=== PATIENT | female | born 1940 | race Caucasian/White ===

== ENCOUNTER → 2017-06-26 | Outpatient (CLI) | payer OTHER ==
[~2017-06-26] MED LIST: AMAR1TAB; AMOX/K; DIOV320T; GLUC1000; LEVE1INJ5; LISI40TAB; PRAV10TA2; ZETI10TA
== END ==
LOC: M LRY 09:48
PROVIDERS: ATTEND Physician Assistant Medical
DX: E11.9 Type 2 diabetes mellitus without complications (principal); E78.2 Mixed hyperlipidemia

== ENCOUNTER 2017-07-23 10:38 | Emergency (ER) | payer OTHER ==
[~2017-07-23] VITALS: Ht 157.5 cm; Wt 91.4 kg
[~2017-07-23 10:38] MED LIST changes: -AMOX/K; -LEVE1INJ5; -LISI40TAB
[2017-07-23] MEDS ORDERED: AMOX/K (10:47)
[2017-07-23] MEDS ORDERED: LISI40TAB (10:47)
[2017-07-23] MEDS ORDERED: LEVE1INJ5 (10:47)
--- NOTE | 2017-07-23 12:18 | REP ---
Chest two views HISTORY: Cough Comparison: 06/14/2011 A diffuse increase in interstitial markings is present in the lungs consistent with chronic interstitial change. Linear density is present in the right lower lobe consistent with scar. The cardiac silhouette is enlarged. The pulmonary vasculature is normal in appearance. The bony structure is intact. The patient is status post sternotomy. IMPRESSION: 1. Chronic interstitial change. 2. Right lower lobe scar. 3. Cardiomegaly. Signed by Robbie Fontaine MD 07/23/2017 12:09 P
--- NOTE | 2017-07-23 12:30 | REP ---
RIGHT RIBS, THREE VIEWS: HISTORY: Pain. A minimal increase in interstitial markings is present in the lungs consistent with chronic interstitial change. The cardiac silhouette is enlarged. The bony structure is intact. IMPRESSION: 1. Chronic interstitial change. 2. Cardiomegaly. Signed by Robbie Fontaine MD 07/23/2017 12:37 P
[2017-07-23 12:55] VITALS: BP 125/56
== END 2017-07-23 13:01 | disposition home or self-care (01) ==
LOC: M ED 10:38
DX: S29.011A Strain of muscle and tendon of front wall of thorax, initial encounter (principal); W50.0XXA Accidental hit or strike by another person, initial encounter; Y92.012 Bathroom of single-family (private) house as the place of occurrence of the external cause; Y93.F9 Activity, other caregiving; Y99.8 Other external cause status; E11.9 Type 2 diabetes mellitus without complications; I10 Essential (primary) hypertension; Z79.899 Other long term (current) drug therapy; Z79.4 Long term (current) use of insulin; Z88.2 Allergy status to sulfonamides; Z88.5 Allergy status to narcotic agent; Z91.040 Latex allergy status; Z87.891 Personal history of nicotine dependence

== ENCOUNTER → 2018-01-22 | Outpatient (CLI) | payer OTHER ==
[2018-01-22 11:27] LABS: BASO # 0.1 10^3/uL (0.0-0.2); BASO % 0.6 % (0.0-1.0); EOS # 0.3 10^3/uL (0.0-0.50); EOS % 3.7 % (0.0-3.0); HEMATOCRIT 40.8 % (36.0-47.0); HEMOGLOBIN 13.1 g/dl (12.0-16.0); IMMATURE GRANULOCYTE % 0.4 % (0-3.0); LYMPH # 1.3 10^3/uL (1.5-4.5); LYMPH % 15.5 % (24.0-44.0); MEAN CORPUSCULAR HGB CONC 32.1 g/dl (32.0-36.5); MEAN CORPUSCULAR VOLUME 102.8 fl (80.0-96.0); MONO # 0.6 10^3/uL (0.0-0.8); MONO % 6.9 % (0.0-5.0); NEUTROPHILS # 6.1 10^3/uL (1.8-7.7); NEUTROPHILS % 72.9 % (36.0-66.0); PLATELET COUNT, AUTOMATED 253 10^3/uL (150-450); RED BLOOD COUNT 3.97 10^6/uL (4.00-5.40); RED CELL DISTRIBUTION WIDTH 13.1 % (11.5-14.5); WHITE BLOOD COUNT 8.3 10^3/uL (4.0-10.0)
[2018-01-22 11:47] LABS: ESTIMATED AVERAGE GLUCOSE 163 MG/DL (60-110); HEMOGLOBIN A1c 7.3 %
[2018-01-22 12:31] LABS: ALBUMIN 3.8 GM/DL (3.2-5.2); ALBUMIN/GLOBULIN RATIO 1.09 (1.00-1.93); ALKALINE PHOSPHATASE 72 U/L (45-117); ALT/SGPT 22 U/L (12-78); ANION GAP 8 MEQ/L (8-16); AST/SGOT 19 U/L (7-37); BILIRUBIN,TOTAL 0.5 MG/DL (0.2-1.0); BLOOD UREA NITROGEN 25 MG/DL (7-18); CALCIUM LEVEL 9.3 MG/DL (8.8-10.2); CARBON DIOXIDE LEVEL 26 MEQ/L (21-32); CHLORIDE LEVEL 110 MEQ/L (98-107); CHOLESTEROL LEVEL 135 MG/DL (<200); CHOLESTEROL RISK RATIO 3.068 (<5); CREATININE FOR GFR 1.04 MG/DL (0.55-1.30); GLOMERULAR FILTRATION RATE 54.8 (>39); GLUCOSE, FASTING 90 MG/DL (70-100); HDL CHOLESTEROL 44 MG/DL (>40); NON-HDL-C 91 MG/DL; SODIUM LEVEL 144 MEQ/L (136-145); TOTAL PROTEIN 7.3 GM/DL (6.4-8.2); TRIGLYCERIDES LEVEL 150 MG/DL (<150)
== END ==
LOC: M LRY 09:35
DX: R53.83 Other fatigue (principal); E78.2 Mixed hyperlipidemia; I10 Essential (primary) hypertension; E11.9 Type 2 diabetes mellitus without complications
CPT/HCPCS: 84443

== ENCOUNTER 2018-07-24 07:20 | Emergency (ER) | payer OTHER ==
[2018-07-24] MEDS: NORCO, ANEXSIA 5/325MG TABLET (HYDROcodone/ACETAMINOPHEN) PO (09:42)
== END 2018-07-24 11:53 | disposition home or self-care (01) ==
LOC: M ED 07:20
DX: M70.62 Trochanteric bursitis, left hip (principal); E66.01 Morbid (severe) obesity due to excess calories; Z68.35 Body mass index [BMI] 35.0-35.9, adult; I10 Essential (primary) hypertension; M54.31 Sciatica, right side; Z88.5 Allergy status to narcotic agent; Z88.2 Allergy status to sulfonamides; Z91.040 Latex allergy status; Z79.899 Other long term (current) drug therapy; Z79.84 Long term (current) use of oral hypoglycemic drugs; Z79.4 Long term (current) use of insulin; Z79.82 Long term (current) use of aspirin
CPT/HCPCS: 73502

== ENCOUNTER → 2018-09-09 | Outpatient (CLI) | payer OTHER | LOC: M WHC 13:01 | DX: M51.36 Other intervertebral disc degeneration, lumbar region (principal); Z78.0 Asymptomatic menopausal state | CPT/HCPCS: 77080 ==

== ENCOUNTER → 2018-09-24 | Outpatient (CLI) | payer OTHER ==
[2018-09-24 13:22] LABS: BASO # 0.1 10^3/uL (0.0-0.2); EOS # 0.4 10^3/uL (0.0-0.50); EOS % 6.4 % (0.0-3.0); HEMATOCRIT 38.1 % (36.0-47.0); HEMOGLOBIN 12.2 g/dl (12.0-15.5); IMMATURE GRANULOCYTE % 0.4 % (0-3.0); LYMPH # 1.3 10^3/uL (1.5-4.5); LYMPH % 18.4 % (24.0-44.0); MEAN CORPUSCULAR HEMOGLOBIN 32.6 pg (27.0-33.0); MEAN CORPUSCULAR VOLUME 101.9 fl (80.0-96.0); MONO # 0.6 10^3/uL (0.0-0.8); MONO % 9.1 % (0.0-5.0); NEUTROPHILS # 4.5 10^3/uL (1.8-7.7); NEUTROPHILS % 64.7 % (36.0-66.0); PLATELET COUNT, AUTOMATED 254 10^3/uL (150-450); RED BLOOD COUNT 3.74 10^6/uL (4.00-5.40); RED CELL DISTRIBUTION WIDTH 14.2 % (11.5-14.5); WHITE BLOOD COUNT 6.9 10^3/uL (4.0-10.0)
[2018-09-24 13:49] LABS: ESTIMATED AVERAGE GLUCOSE 174 MG/DL (60-110); HEMOGLOBIN A1c 7.7 %
[2018-09-24 13:52] LABS: ALBUMIN 3.7 GM/DL (3.2-5.2); ALBUMIN/GLOBULIN RATIO 1.16 (1.00-1.93); ALKALINE PHOSPHATASE 107 U/L (45-117); ALT/SGPT 22 U/L (12-78); ANION GAP 7 MEQ/L (8-16); AST/SGOT 22 U/L (7-37); BILIRUBIN,TOTAL 0.4 MG/DL (0.2-1.0); BLOOD UREA NITROGEN 23 MG/DL (7-18); CALCIUM LEVEL 9.2 MG/DL (8.8-10.2); CARBON DIOXIDE LEVEL 28 MEQ/L (21-32); CHLORIDE LEVEL 107 MEQ/L (98-107); CHOLESTEROL LEVEL 155 MG/DL (<200); CHOLESTEROL RISK RATIO 3.444 (<5); CREATININE FOR GFR 1.01 MG/DL (0.55-1.30); GLOMERULAR FILTRATION RATE 56.7 (>39); GLUCOSE, FASTING 99 MG/DL (70-100); HDL CHOLESTEROL 45 MG/DL (>40); LDL CHOLESTEROL 79 MG/DL (<100); NON-HDL-C 110 MG/DL; SODIUM LEVEL 142 MEQ/L (136-145); TOTAL PROTEIN 6.9 GM/DL (6.4-8.2); TRIGLYCERIDES LEVEL 155 MG/DL (<150)
== END ==
LOC: M LRY 10:50
DX: Z51.81 Encounter for therapeutic drug level monitoring (principal); Z79.899 Other long term (current) drug therapy; E11.9 Type 2 diabetes mellitus without complications; E78.5 Hyperlipidemia, unspecified; G89.4 Chronic pain syndrome
CPT/HCPCS: 84443

== ENCOUNTER → 2018-11-25 | Outpatient (CLI) | payer MEDICARE ==
[~2018-11-25] MED LIST changes: +AMOX/K; +BAYE325T12 PO; +LEVE1INJ5; +LISI40TA; +NORCOTAB PO; +ROLLMIS2 XX
[2018-11-25 13:03] LABS: CREATININE FOR GFR 1.12 MG/DL (0.55-1.30); GLOMERULAR FILTRATION RATE 50.2 (>39)
[2018-11-25 13:07] LABS: INR 0.92; PROTHROMBIN TIME 12.5 SECONDS (12.1-14.4)
[2018-11-25 13:09] LABS: PARTIAL THROMBOPLASTIN TIME 29.2 SECONDS (25.4-37.6)
== END ==
LOC: M LRY 09:21
PROVIDERS: ATTEND Orthopaedic Surgery
DX: Z01.812 Encounter for preprocedural laboratory examination (principal); Z79.01 Long term (current) use of anticoagulants

== ENCOUNTER → 2018-12-03 | Outpatient (CLI) | payer MEDICARE ==
[~2018-12-03] MED LIST changes: +ACETAMINOPHEN 325 MG TAB As Ordered ONE; +ISOVUE-300 61% 50ML VIAL (Q9967) As Ordered ONE; +ISOVUE-M 300 61% 15ML VIAL (Q9967) As Ordered ONE; +LIDOCAINE 1% MDV 20ML VIAL As Ordered ONE
--- NOTE | 2018-12-03 09:41 | REP ---
CT LUMBAR SPINE WITHOUT CONTRAST: HISTORY: Degenerative disc disease. There is no disc bulge or herniation at the L1-2 level. The L1 nerves exit the neural foramina without compression. A diffuse disc bulge is present at the L2-3 level. There is minimal compression of the thecal sac. The L2 nerves exit the neural foramina without compression. A diffuse disc bulge is present at the L3-4 level. There is hypertrophy of the ligamenta flava and posterior articulating facets. These findings produce mild central canal stenosis. The L3 nerves exit the neural foramina without compression. A diffuse disc bulge is present at the L4-5 level. There is hypertrophy of the ligamenta flava and posterior articulating facets. There are 3 mm of grade 1 spondylolisthesis of L4 on 5. These findings produce severe central canal stenosis. There is compression of the L4 nerves in the neural foramina. A diffuse disc bulge is present at the L5-S1 level. There is minimal compression of the thecal sac. There is hypertrophy of the posterior articulating facets. The L5 nerves exit the neural foramina without compression. The L2-3 and L4-5 intervertebral discs are decreased in height consistent with disc degeneration. The vertebral bodies are normal in height. A stimulator is present in the left S3 neural foramen. IMPRESSION: 1. Diffuse disc bulges at the L2-3 and L5-S1 levels with minimal thecal sac compression. 2. Mild central canal stenosis at the L3-4 level secondary to disc bulge, ligamentous and facet hypertrophy. 3. Severe central canal stenosis at the L4-5 level secondary to disc bulge, ligamentous and facet hypertrophy, and grade 1 spondylolisthesis. There is compression of the L4 nerves in the neural foramina. Electronically Signed by Robbie Fontaine MD 12/03/2018 09:47 A
--- NOTE | 2018-12-03 20:39 | REP ---
LUMBAR MYELOGRAM The procedure was performed under the personal supervision of Dr. Gasca. The images were reviewed with Dr. Gasca. The risks and benefits of the procedure were explained to the patient and informed consent was obtained. The L3-4 interspace was localized using fluoroscopic guidance. The skin was prepped and draped in a sterile fashion. 1% lidocaine was used as a local anesthetic. Using fluoroscopic guidance a 822-gauge spinal needle was inserted and advanced into the thecal sac. 10 ml of Isovue M - 300 was injected. The needle was then removed. Images obtained after injection demonstrate moderate central canal stenosis at L4-5 with mild compression and widening of the fifth lumbar roots in the thecal sac at this level on AP imaging. There is mild central canal stenosis at L3-4 as well. There is evidence of a fairly large disc protrusion along the ventral margin of the thecal sac at T11-12. The patient tolerated the procedure well and there were no immediate complications. After the appropriate amount of monitored convalescence the patient was discharged from the department. 0.5 minutes of fluoroscopy time was utilized for this procedure. Reviewed by DANIEL Martinez 12/03/2018 04:18 P Electronically Signed by Branden Gasca MD 12/03/2018 08:29 P
== END ==
LOC: M RADPRO 07:33
PROVIDERS: ATTEND Physician Assistant
DX: M48.061 Spinal stenosis, lumbar region without neurogenic claudication (principal); M51.27 Other intervertebral disc displacement, lumbosacral region; Z88.5 Allergy status to narcotic agent; Z88.2 Allergy status to sulfonamides; Z91.040 Latex allergy status
CPT/HCPCS: 62284; 72131; Q9967

== ENCOUNTER → 2018-12-09 | Outpatient (CLI) | payer MEDICARE ==
[~2018-12-09] MED LIST changes: -ACETAMINOPHEN 325 MG TAB As Ordered ONE; -ISOVUE-300 61% 50ML VIAL (Q9967) As Ordered ONE; -ISOVUE-M 300 61% 15ML VIAL (Q9967) As Ordered ONE; -LIDOCAINE 1% MDV 20ML VIAL As Ordered ONE
[2018-12-09 11:45] LABS: BASO # 0.1 10^3/uL (0.0-0.2); BASO % 0.8 % (0.0-1.0); EOS # 0.3 10^3/uL (0.0-0.50); EOS % 4.5 % (0.0-3.0); HEMOGLOBIN 12.5 g/dl (12.0-15.5); LYMPH # 1.1 10^3/uL (1.5-4.5); MEAN CORPUSCULAR HEMOGLOBIN 32.1 pg (27.0-33.0); MEAN CORPUSCULAR HGB CONC 31.3 g/dl (32.0-36.5); MEAN CORPUSCULAR VOLUME 102.6 fl (80.0-96.0); MONO # 0.6 10^3/uL (0.0-0.8); MONO % 10.2 % (0.0-5.0); NEUTROPHILS # 4.1 10^3/uL (1.8-7.7); PLATELET COUNT, AUTOMATED 231 10^3/uL (150-450); WHITE BLOOD COUNT 6.2 10^3/uL (4.0-10.0)
[2018-12-09 11:52] LABS: ALBUMIN 3.5 GM/DL (3.2-5.2); BILIRUBIN,TOTAL 0.4 MG/DL (0.2-1.0); CALCIUM LEVEL 9.1 MG/DL (8.8-10.2); CHOLESTEROL RISK RATIO 3.666 (<5); CREATININE FOR GFR 1.1 MG/DL (0.55-1.30); GLOMERULAR FILTRATION RATE 51.3 (>39); POTASSIUM SERUM 4.9 MEQ/L (3.5-5.1); THYROID STIMULATING HORMONE 2.02 uIU/ML (0.358-3.740); TOTAL PROTEIN 6.8 GM/DL (6.4-8.2)
[2018-12-09 12:01] LABS: HEMOGLOBIN A1c 7.7 %
== END ==
LOC: M LRY 09:06
PROVIDERS: ATTEND Nurse Practitioner Adult Health
DX: Z51.81 Encounter for therapeutic drug level monitoring (principal); Z79.899 Other long term (current) drug therapy; F33.1 Major depressive disorder, recurrent, moderate

== ENCOUNTER → 2019-01-30 | Outpatient (REF) | payer MEDICARE ==
[~2019-01-30] MED LIST changes: +HYDR-3715 PO; -NORCOTAB PO
[2019-01-30 12:55] LABS: INR 1.07
[2019-01-30 12:56] LABS: PARTIAL THROMBOPLASTIN TIME 26.8 SECONDS (25.4-37.6)
== END ==
LOC: M LAB REF 12:18
PROVIDERS: ATTEND Physical Medicine & Rehabilitation
DX: Z79.01 Long term (current) use of anticoagulants (principal); D69.1 Qualitative platelet defects

== ENCOUNTER → 2019-03-04 | Outpatient (CLI) | payer MEDICARE ==
[2019-03-04 11:28] LABS: BASO # 0.1 10^3/uL (0.0-0.2); BASO % 0.9 % (0.0-1.0); EOS # 0.4 10^3/uL (0.0-0.50); EOS % 5.8 % (0.0-3.0); HEMATOCRIT 40.4 % (36.0-47.0); HEMOGLOBIN 12.7 g/dl (12.0-15.5); LYMPH # 1.2 10^3/uL (1.5-4.5); LYMPH % 18.8 % (24.0-44.0); MEAN CORPUSCULAR HEMOGLOBIN 32.1 pg (27.0-33.0); MEAN CORPUSCULAR HGB CONC 31.4 g/dl (32.0-36.5); MONO # 0.6 10^3/uL (0.0-0.8); MONO % 9.2 % (0.0-5.0); NEUTROPHILS # 4.2 10^3/uL (1.8-7.7); NEUTROPHILS % 64.8 % (36.0-66.0); PLATELET COUNT, AUTOMATED 219 10^3/uL (150-450); RED BLOOD COUNT 3.96 10^6/uL (4.00-5.40); WHITE BLOOD COUNT 6.5 10^3/uL (4.0-10.0)
[2019-03-04 12:00] LABS: HEMOGLOBIN A1c 7.5 %
[2019-03-04 12:08] LABS: ALBUMIN 3.5 GM/DL (3.2-5.2); BILIRUBIN,TOTAL 0.4 MG/DL (0.2-1.0); CALCIUM LEVEL 8.7 MG/DL (8.8-10.2); CHOLESTEROL RISK RATIO 3.227 (<5); CREATININE FOR GFR 1.15 MG/DL (0.55-1.30); GLOMERULAR FILTRATION RATE 48.7 (>39); POTASSIUM SERUM 5.4 MEQ/L (3.5-5.1); THYROID STIMULATING HORMONE 1.86 uIU/ML (0.358-3.740)
== END ==
LOC: M LRY 09:18
PROVIDERS: ATTEND Nurse Practitioner Adult Health
DX: Z79.899 Other long term (current) drug therapy (principal); E11.9 Type 2 diabetes mellitus without complications; E78.5 Hyperlipidemia, unspecified

== ENCOUNTER 2019-05-06 09:00 | Inpatient (IN) | payer MEDICARE ==
[~2019-05-06] VITALS: Ht 157.5 cm; Wt 90.9 kg
[2019-05-06 09:40] LABS: HEMATOCRIT 46.1 % (36.0-47.0); HEMOGLOBIN 14.8 g/dl (12.0-15.5); MEAN CORPUSCULAR HEMOGLOBIN 33.3 pg (27.0-33.0); MEAN CORPUSCULAR HGB CONC 32.1 g/dl (32.0-36.5); MEAN CORPUSCULAR VOLUME 103.8 fl (80.0-96.0); PLATELET COUNT, AUTOMATED 193 10^3/uL (150-450); RED BLOOD COUNT 4.44 10^6/uL (4.00-5.40); WHITE BLOOD COUNT 3.3 10^3/uL (4.0-10.0)
[2019-05-06] MEDS ORDERED: ONDANSETRON 4MG/2ML VIAL (J2405) IV ONE (09:45)
[2019-05-06 10:00] LABS: ATYPICAL LYMPH 2 % (0-5); BASOPHILS 1 % (0-4); LYMPHOCYTES 15 % (16-52); MONOCYTES 4 % (0-8); NEUTROPHILS 74 % (35-75)
[2019-05-06 10:01] LABS: POIKILOCYTOSIS 1+
[2019-05-06 10:09] LABS: ALBUMIN 4.1 GM/DL (3.2-5.2); BILIRUBIN,DIRECT 0.2 MG/DL (0.0-0.2); BILIRUBIN,TOTAL 0.7 MG/DL (0.2-1.0); CREATININE FOR GFR 1.78 MG/DL (0.55-1.30); GLOMERULAR FILTRATION RATE 29.4 (>39); POTASSIUM SERUM 4.2 MEQ/L (3.5-5.1); TOTAL PROTEIN 8.1 GM/DL (6.4-8.2)
[2019-05-06] MEDS ORDERED: NS 1,000 ML IV SCH (10:31)
[2019-05-06] MEDS ORDERED: MORPHINE 4 MG/ML 1ML VIAL/SYRINGE (J2270) IV ONE (10:45)
--- NOTE | 2019-05-06 11:54 | REP ---
CT ABDOMEN AND PELVIS WITHOUT CONTRAST: CT abdomen and pelvis performed without oral or IV contrast. Sagittal and coronal reconstruction images are performed. Visualized lung bases demonstrate fibrotic changes. There is a small hiatal hernia. The liver is grossly unremarkable. Small gallstones are seen in the gallbladder without definite gallbladder wall edema. The spleen, adrenals and pancreas are grossly unremarkable. There are renal vascular calcifications bilaterally. There is no right hydronephrosis. There is mild left hydronephrosis caused by a 3 mm stone in the proximal left ureter. There is moderate atherosclerotic calcification of the abdominal aorta without aneurysm. There is no adenopathy. There is no free air or free fluid. No bowel wall thickening is seen. I see no pelvic mass. Course calcifications are seen in both small ovaries. Urinary bladder is very mildly distended and grossly unremarkable. IMPRESSION: There is a 3 mm calculus in the proximal left ureter causing mild left hydronephrosis. No right hydronephrosis. No other acute abnormalities. Electronically Signed by Philippe Alvarado MD 05/07/2019 10:51 A
[2019-05-06] MEDS ORDERED: PIPERACILLIN/TAZOBACTAM SOD 2.25 GM in D5W MINI-BAG PLUS 50 ML IV ONE (14:00)
[2019-05-06] MEDS ORDERED: TRAZ-189 PO (14:09)
[2019-05-06] MEDS ORDERED: LEVE1INJ5 SC (14:09)
[2019-05-06] MEDS ORDERED: PRAV40TA2 PO (14:09)
[2019-05-06] MEDS ORDERED: TRAV04OPD OU (14:09)
[2019-05-06] MEDS ORDERED: METF-877 PO (14:09)
[2019-05-06] MEDS ORDERED: ASPI-262 PO (14:09)
[2019-05-06] MEDS ORDERED: LISI40TA PO (14:09)
[2019-05-06] MEDS ORDERED: CONRAY-60 60% 50ML VIAL (Q9961) As Ordered ONE (14:38)
[2019-05-06] MEDS ORDERED: GLUCOSE 4 GM CHEW TABLET PO PRN ×2 (14:45→22:30)
[2019-05-06] MEDS ORDERED: DEXTROSE 50% 50 ML SYRINGE IV PRN ×2 (14:45→22:30)
[2019-05-06] MEDS ORDERED: GLUCAGON FOR INJ 1 MG VIAL (J1610) SC PRN ×2 (14:45→22:30)
[2019-05-06] MEDS ORDERED: PROPOFOL 200 MG/20 ML VIAL As Ordered ONE (14:46)
[2019-05-06] MEDS ORDERED: LIDOCAINE 2% INJ 100 MG/5 ML SDV (FOR ANES.) As Ordered ONE (14:46)
[2019-05-06] MEDS ORDERED: MIDAZOLAM INJ 2 MG/2 ML VIAL (J2250) As Ordered ONE (14:46)
[2019-05-06] MEDS ORDERED: fentaNYL 100 MCG/2 ML INJECTION (J3010) As Ordered ONE (14:46)
--- NOTE | 2019-05-06 15:34 | SMCUROLCON ---
Urology Consultation General Date of Consultation 05/06/19 Reason For Consultation This patient is seen for Left Ureteral Stone. History of Present Illness This is a 78 y/o F w/ a PMH significant for CAD, HTN, DM2, HL, and recurrent UTIs, presenting to the ER w/ a severe left flank pain that started last night. She notes that the pain has increased since yesterday. She also notes nausea and vomiting as well as chills. A CT A/P done in the ER was notable for a 3mm proximal left ureteral stone w/ mild hydronephrosis and perinephric stranding. Her UA was notable for 136 WBC/hpf, positive nitrites, and 3+ bacteria. Her WBC was 3.3. Per ER report she was also hypotensive in the ER w/ a SBP in the 90s. The patient notes her pain is a little better now as she was given morphine in the ER. She denies dysuria. She notes that prior to now she had not had a UTI in over a year. She has no prior history of kidney stones. Past Medical History Medical History see [facility] Surgical Hstory open heart surgery in 2008, hysterectomy, rotator cuff repair in 2005 Medications Current Medications Current Medications Acetaminophen (Tylenol Tab) 650 mg Q4H PRN PO PAIN OR FEVER; Start 05/06/19 at 1 4:45 Dextrose (Dextrose 50%) 25 ml ASDIRECTED PRN IV SEE LABEL COMMENTS; Start 05/06/19 at 14:45 Glucagon (Glucagon) 1 mg ASDIRECTED PRN SC SEE LABEL COMMENTS; Start 05/06/19 at 14:45 Glucose (Glucose) 16 GM ASDIRECTED PRN PO SEE LABEL COMMENTS; Start 05/06/19 at 14:45 Heparin Sodium (Porcine) (Heparin) 5,000 units Q12H SC ; Start 05/06/19 at 21:00 Home Med (Med Rec Complete!) ASDIRECTED XX ; Start 05/06/19 at 14:15; Stop 05/06/19 at 14:15; Status DC Insulin Human Lispro (HumaLOG INSULIN) See Protocol Table AC SC ; Start 05/06/19 at 17:30 Latanoprost (Xalatan 0.005% Op Soln) 1 drop QHS OU ; Start 05/06/19 at 21:00 Meropenem 1 gm/IV Miscellaneous Supplies 50 ml @ 100 mls/hr DAILY IV ; Start 05/07/19 at 09:00; Status UNV Sodium Chloride 1,000 ml @ 100 mls/hr Q10H IV ; Start 05/06/19 at 15:00 Sodium Chloride 1,000 ml @ 150 mls/hr Q6H40M IV Last administered on 05/06/19at 10:40; Start 05/06/19 at 10:31; Stop 05/06/19 at 15:06; Status DC Trazodone HCl (Desyrel) 100 mg QHS PO ; Start 05/07/19 at 21:00 Allergies Allergies: Coded Allergies: Sulfa (Sulfonamide Antibiotics) (Verified Allergy, Intermediate, HIVES, 05/06/19) Hives latex (Verified Allergy, Unknown, 05/06/19) codeine (Verified Adverse Reaction, Mild, GI UPSET, 05/06/19) GI Upset Review of Systems Constitutional: Reports: Chills Pulmonary: Denies: Dyspnea, Cough Cardiovascular: Denies Chest Pain, Denies Palpitations Gastrointestinal: Reports: Nausea, Vomiting Genitourinary: Denies: Dysuria, Hematuria Musculoskeletal: Reports: Back Pain (severe left flank pain) Neurological: Denies: Weakness, Numbness, Incoordination, Change in Speech Psych: Reports: Mood Normal Physical Examination General Exam: Alert, Cooperative Chest Exam: Clear to auscultation Heart Exam: Rate Normal, Regular Rhythm Abdomen Exam: Soft; No: Tenderness Skin Exam: Nl turgor and temperature Neuro Exam: Normal Speech Psych Exam: Mental status NL, Mood NL Vital Signs/I&O Vital Signs Date Time Temp Pulse Resp B/P (MAP) Pulse Ox O2 Delivery O2 Flow Rate FiO2 05/06/19 14:55 133/73 (93) 05/06/19 14:50 99 18 96 Nasal Cannula 3.0 05/06/19 14:40 98.1 Laboratory Data 24H Labs Laboratory Tests 2 05/06/19 09:27: Nucleated Red Blood Cells % (auto) 0.0, Neutrophils 74, Band Neutrophils 4, Lymphocytes (Manual) 15L, Monocytes (Manual) 4, Basophils (Manual) 1, Atypical Lymphocytes 2, Platelet Estimate , Poikilocytosis 1+, Anion Gap -6L, Glomerular Filtration Rate 29.4L, Calcium Level 10.0, Aspartate Amino Transf (AST/SGOT) 25, Alanine Aminotransferase (ALT/SGPT) 19, Alkaline Phosphatase 73, Total Bilirubin 0.7, Direct Bilirubin 0.2, Total Protein 8.1, Albumin 4.1, Albumin/Globulin Ratio 1.03, Lipase 120 05/06/19 11:39: Urine Color YELLOW, Urine Appearance CLOUDYH, Urine pH 6.0, Urine Specific [place] 1.009, Urine Protein 2+H, Urine Glucose (UA) NEGATIVE, Urine Ketones NEGATIVE, Urine Blood 3+H, Urine Nitrite POSITIVEH, Urine Bilirubin NEGATIVE, Urine Urobilinogen 0.2, Urine Leukocyte Esterase 3+H, Urine WBC (Auto) 136H, Urine RBC (Auto) TNTCH, Urine Hyaline Casts (Auto) 0, Urine Bacteria (Auto) 3+H, Urine Squamous Epithelial Cells 10, Urine Renal Epithelial Cells 3, Urine Mucus (Auto) SMALL, Urine Sperm (Auto) CBC/BMP Laboratory Tests 05/06/19 09:27 Red Blood Count 4.44, Mean Corpuscular Volume 103.8 H, Mean Corpuscular Hemoglobin 33.3 H, Mean Corpuscular Hemoglobin Concent 32.1, Red Cell Distribution Width 13.2 Microbiology Microbiology 05/06/19 Blood Culture, Received Pending 05/06/19 Blood Culture, Received Pending 05/06/19 Urine Culture, Received Pending Assessment This is a 78 y/o F admitted w/ concern for sepsis due a UTI and an obstructing proximal left ureteral stone. I recommended that we take her to the OR now for cystoscopy and a left ureteral stent placement. After a discussion of the risks and benefits of surgery, informed consent was signed. Plan - informed consent signed for cystoscopy and left ureteral stent placement - blood and urine cultures obtained - zosyn given in the ED - NPO - plan for surgery now BRIDGETTE DASH MD May 06, 2019 15:34
[2019-05-06] MEDS ORDERED: MEROPENEM INJ 1 GM in APPROPRIATE DILUENT 1 EA IV ONE (15:45)
[2019-05-06] MEDS ORDERED: LIDOCAINE 2% 5ML JELLY UROJET As Ordered ONE (16:34)
[2019-05-06] MEDS ORDERED: LR 1,000 ML IV SCH ×2 (17:15→17:30)
[2019-05-06] MEDS ORDERED: ONDANSETRON 4MG/2ML VIAL (J2405) IV PRN ×2 (17:15→17:30)
[2019-05-06] MEDS ORDERED: HYDROMORPHONE HCL 0.5 MG/ 0.5 ML SYRINGE (J1170 PER 1) IV PRN ×2 (17:15→17:30)
[2019-05-06] MEDS ORDERED: fentaNYL 100 MCG/2 ML INJECTION (J3010) IV PRN ×2 (17:15→17:30)
[2019-05-06] MEDS ORDERED: PERCOCET 5MG/325MG TAB PO PRN ×3 (17:15→17:30)
[2019-05-06] MEDS ORDERED: HumaLOG INSULIN (NovoLOG) PER UNIT As Ordered ONE (17:23)
[2019-05-06] MEDS ORDERED: HumaLOG INSULIN (NovoLOG) PER UNIT SC SCH (17:30)
[2019-05-06] MEDS ORDERED: HumaLOG INSULIN (NovoLOG) PER UNIT SC ONE (17:30)
--- NOTE | 2019-05-06 17:42 | REP ---
C-ARM VIEWS DURING LEFT URETERAL STENT PLACEMENT: Four C-Arm views performed. Left ureteral stent is placed. Left pelvicaliceal system is partially opacified with contrast. Proximal end of the ureteral stent is seen in the renal pelvis and the distal end is seen in the urinary bladder. 16 seconds fluoroscopy time utilized. Electronically Signed by Philippe Alvarado MD 05/09/2019 10:04 A
[2019-05-06 18:00] VITALS: BP 120/58
[2019-05-06] MEDS: NS 1,000 ML IV SCH (18:00)
[2019-05-06 18:30] VITALS: BP 124/58
[2019-05-06 19:00] VITALS: BP 122/56
--- NOTE | 2019-05-06 19:08 | RO ---
DATE OF PROCEDURE: 05/06/2019 PREPROCEDURE DIAGNOSIS: Left ureteral stone. POSTPROCEDURE DIAGNOSIS: Left ureteral stone. PROCEDURE: Cystoscopy, left ureteral stent placement. SURGEON: Dr. Robb Rosas SOAP WORKER: None. ANESTHESIA: Monitored anesthesia care (MAC). OPERATIVE INDICATIONS: This 78-year-old female presented to the emergency room with chills and severe left flank pain. She was found to have an obstructing proximal 3 mm left ureteral stone as well as urinalysis concerning for urinary tract infection. She also, while in the emergency room, became hypotensive, raising a concern for sepsis. She was brought to the operating room today for left ureteral stent placement. DESCRIPTION OF PROCEDURE: The patient was brought to the operating room and MAC anesthesia was administered. Broad-spectrum antibiotics were already infused. She was then placed in the dorsal lithotomy position and prepped and draped in the usual sterile fashion. A rigid cystoscope was then inserted into the urethral meatus and advanced to the bladder. Once inside the bladder, a guidewire was advanced up the left collecting system. I then advanced an open-ended ureteral catheter over the wire into the left collecting system and then removed the wire. I then aspirated urine from the left kidney to be sent for culture. A retrograde pyelogram was then performed. It was notable for mild left hydronephrosis, no extravasation. I then advanced the wire back up the left collecting system and then removed the ureteral catheter. I utilized the wire to advance a 6-Nigerien x 22-32 cm JJ ureteral stent up into the left collecting system. The wire was removed, and there were adequate curls of the stent in the left renal pelvis and in the bladder. I then advanced the 16-Nigerien Pham catheter into the bladder, and the balloon was filled with 10 mL of sterile water. The catheter was connected to gravity drainage, and this marked the conclusion of the procedure. The patient was then awakened from anesthesia and transported to the recovery room in stable condition. Estimated blood loss: Minimal. Complications: None. Specimens: Urine from left kidney for culture. PLAN: The patient will be watched in the hospital on the hospitalist service and kept on broad-spectrum antibiotics until the cultures return. We will discuss any future treatment of her stone after ensuring her infection has been resolved. YAMILET
--- NOTE | 2019-05-06 19:44 | HPE ---
DATE OF ADMISSION: 05/06/2019 PRIMARY CARE PROVIDER: Dr. Kc UROLOGIST: Dr. Robb Rosas ATTENDING PHYSICIAN: Dr. Jenifer Pederson CHIEF COMPLAINT: Acute onset left flank pain. HISTORY OF PRESENT ILLNESS: The patient is a 78-year-old white female with several chronic medical conditions listed below, came to the hospital for evaluation of left flank pain. History if provided by herself. She states she does not have history of kidney stone in the past and she was doing fine until last night and suddenly she said she developed severe pain located in her left flank, radiation down. The worst pain is about 8 out of 10 in severity and she denies fever, chills and she has frequent urination which she states is chronic. Due to severe pain, she came to the hospital for full evaluation. In the ER, she underwent abdominal CT scan which demonstrated she has left ureteral stone with hydronephrosis and antibiotic, Zosyn started in the ER and urologist was called for the consult. Meanwhile medicine service was called for admission. REVIEW OF SYSTEMS: Denies fever, no chills. No headache, blurry vision, no shortness of breath, no chest pain. Positive nausea, positive vomiting. Positive dysuria, but no diarrhea. Positive left flank pain. No tingling, numbness, weakness in the arms, lower extremities. All other systems reviewed, but negative. PAST MEDICAL HISTORY: 1. Type 2 diabetes. 2. Coronary artery disease, status post coronary artery bypass graft (CABG). 3. Hypertension. 4. Dyslipidemia. PAST SURGICAL HISTORY: Status post CABG 11 years ago and hysterectomy. ALLERGIES: SULFA, CODEINE and LATEX. SOCIAL HISTORY: Remote tobacco use, but quit many, many years. No alcohol abuse. No history of drug abuse. She is FULL CODE. FAMILY HISTORY: No family history of coronary disease or kidney problems. MEDICATIONS: Reviewed. PHYSICAL EXAMINATION: VITALS: Temperature 97.8, heart rate 111, respiratory rate 18, blood pressure 98.52 and 02 saturation is 96% on 3 liters oxygen. GENERAL: She is awake, alert, oriented times three. She is in much acute distress. She is obese. HEENT: Atraumatic. Pupils equal, round and reactive to light. No jaundice. Extraocular muscles intact. Ears, nose, throat: Normal. Mouth: Mucous a little bit dry. NECK: No jugular venous distention (JVD). No bruits. LUNGS: Clear. No wheezing, no crackles. HEART: S1, S2, regular. Mild tachycardia and no murmur. ABDOMEN: Soft, bowel sounds positive. Nontender. LOWER EXTREMITIES: No edema in bilateral lower extremities. SKIN: No rash. NEUROLOGICAL: Nonfocal. PSYCHOLOGICAL: No acute psychosis. DIAGNOSTICS AND LAB STUDIES: Include the following: CBC and differential: WBC 3.3, hemoglobin and hematocrit 14.8/46, platelets 193. Sodium 131, potassium 4.2, chloride 116, bicarbonate 21, BUN 28, creatinine 1.78 and her baseline is 1.5. CT abdomen and pelvis demonstrated left ureteral stone with hydronephrosis. IMPRESSION: 1. Left ureteral stone with hydronephrosis. 2. Recurrent urinary tract infection. 3. History of type 2 diabetes. 4. History of carotid disease. 5. Hyponatremia which is mild. 6. Acute onset chronic kidney disease (CKD), stage III. PLAN: Patient will be admitted to the med-surg floor. Will treat her with IV gentle hydration and I will treat her with meropenem for urinary tract infection since she has history of ESBL, E. coli and Klebsiella. Will keep her nothing by mouth (npo). Urology was consulted and plan to take to the OR for ureteral stent placement. She is medically stable. She is medically cleared for cystoscopy and left ureteral stenting.
[2019-05-06 20:00] VITALS: BP 118/59
[2019-05-06 21:00] VITALS: BP 120/57
[2019-05-06 22:00] VITALS: BP 123/55
[2019-05-06] MEDS: MEROPENEM INJ 1 GM in APPROPRIATE DILUENT 1 EA IV SCH (22:05)
[2019-05-06] MEDS: HEPARIN SOD (PORCINE) 5000 UNITS/ML VIAL SC SCH (22:13)
[2019-05-06] MEDS: HumaLOG INSULIN (NovoLOG) PER UNIT SC SCH (23:28)
[2019-05-06] MEDS: LATANOPROST 0.005% OPHTH SOLN 2.5 ML OU SCH (23:29)
[2019-05-07] VITALS: BP_SYST 111
[2019-05-07] MEDS: NS 1,000 ML IV SCH ×3 (02:30→20:45)
[2019-05-07 04:00] VITALS: BP 130/61
[2019-05-07] MEDS: ACETAMINOPHEN TAB 650MG DOSE (2X325MG) PO PRN ×2 (04:47→17:23)
[2019-05-07 06:54] LABS: HEMOGLOBIN 12.4 g/dl (12.0-15.5); MEAN CORPUSCULAR HEMOGLOBIN 34.1 pg (27.0-33.0); MEAN CORPUSCULAR HGB CONC 31.8 g/dl (32.0-36.5); MEAN CORPUSCULAR VOLUME 107.1 fl (80.0-96.0); PLATELET COUNT, AUTOMATED 135 10^3/uL (150-450); RED BLOOD COUNT 3.64 10^6/uL (4.00-5.40); WHITE BLOOD COUNT 21.9 10^3/uL (4.0-10.0)
[2019-05-07 07:21] LABS: CALCIUM LEVEL 8.4 MG/DL (8.8-10.2); CREATININE FOR GFR 1.73 MG/DL (0.55-1.30); GLOMERULAR FILTRATION RATE 30.4 (>39); POTASSIUM SERUM 5.1 MEQ/L (3.5-5.1)
[2019-05-07 08:00] VITALS: BP 122/59
[2019-05-07] MEDS: HEPARIN SOD (PORCINE) 5000 UNITS/ML VIAL SC SCH ×2 (08:51→20:44)
[2019-05-07] MEDS: HumaLOG INSULIN (NovoLOG) PER UNIT SC SCH ×4 (08:53→21:00)
[2019-05-07] MEDS ORDERED: IBUPROFEN 800 MG TAB PO ONE (09:00)
--- NOTE | 2019-05-07 10:55 | IPNPDOC ---
Date Seen The patient was seen on 05/07/19. Progress Note SUBJECTIVE: 78 Y female, with history of DMT2, HTN, CAD, recurrent UTI presents with left flank pain found to have left ureter stone underwent left ureter stent by Urologist c/w headache this AM left flank pain resolved Review of systems +KIRKPATRICK no fever no chills no chest pain no abdominal pain no diarrhea OBJECTIVE PHYSICAL EXAMINATION: VITAL SIGNS: Please see below. GENERAL: AA Ox3, lying in the bed, no acute distress, obese HEENT: Atraumatic CARDIOVASCULAR: S1 S2 regular, no murmur RESPIRATORY: clear, no wheezing, no rales ABDOMINAL: soft BS positive, non tenderness EXTREMITIES: no edema NEUROLOGICAL: non focal PSYCHOLOGICAL: no psychosis LABORATORY DATA, IMAGING STUDIES, MICROBIOLOGY: Please see below. ASSESSMENT AND PLAN: 1. Left ureteral stone with hydronephrosis s/p ureter stenting Urologist follows 2. Recurrent urinary tract infection she has recurrent UTI with ESBL Klebsiella and E Coli she is afebrile, but has leukocytosis at 21 this AM will continue IV Meropenem and follow cultures 3. Headache, treat symptomatically 4. History of type 2 diabetes, in ISS 5. History of CAD, no chest pain 6. Hyponatremia, resolved 7. Chronic kidney disease (CKD), stage III, will monitor Cr 8. Disposition, may discharge home tomorrow. VS, I&O, 24H, Fishbone Vital Signs/I&O Vital Signs Date Time Temp Pulse Resp B/P (MAP) Pulse Ox O2 Delivery O2 Flow Rate FiO2 05/07/19 08:00 97.5 85 20 122/59 (80) 92 05/07/19 00:00 1.0 05/06/19 14:50 Nasal Cannula I&O- Last 24 Hours up to 6 AM0 05/07/19 06:00 Intake Total 660 ml Output Total 425 ml Balance 235 ml Laboratory Data 24H LABS Laboratory Tests 2 05/06/19 11:39: Urine Color YELLOW, Urine Appearance CLOUDYH, Urine pH 6.0, Urine Specific [place] 1.009, Urine Protein 2+H, Urine Glucose (UA) NEGATIVE, Urine Ketones NEGATIVE, Urine Blood 3+H, Urine Nitrite POSITIVEH, Urine Bilirubin NEGATIVE, Urine Urobilinogen 0.2, Urine Leukocyte Esterase 3+H, Urine WBC (Auto) 136H, Urine RBC (Auto) TNTCH, Urine Hyaline Casts (Auto) 0, Urine Bacteria (Auto) 3+H, Urine Squamous Epithelial Cells 10, Urine Renal Epithelial Cells 3, Urine Mucus (Auto) SMALL, Urine Sperm (Auto) 05/06/19 17:15: Bedside Glucose (Misc Panel) 232H 05/06/19 23:26: Bedside Glucose (Misc Panel) 195H 05/07/19 06:32: Nucleated Red Blood Cells % (auto) 0.0, Anion Gap 6L, Glomerular Filtration Rate 30.4L, Blood Urea Nitrogen 35H, Creatinine 1.73H, Sodium Level 143#, Potassium Level 5.1#, Chloride Level 109H, Carbon Dioxide Level 28, Calcium Level 8.4#L CBC/BMP Laboratory Tests 05/07/19 06:32 Red Blood Count 3.64 L, Mean Corpuscular Volume 107.1 H, Mean Corpuscular Hemoglobin 34.1 H, Mean Corpuscular Hemoglobin Concent 31.8 L, Red Cell Distribution Width 13.9, Calcium Level 8.4 #L Microbiology Microbiology 05/06/19 Blood Culture, Received Pending 05/06/19 Blood Culture, Received Pending 05/06/19 Urine Culture, Received Pending 05/06/19 Urine Culture, Received Pending COREY WEN MD May 07, 2019 10:55
[2019-05-07 12:00] VITALS: BP 111/55
--- NOTE | 2019-05-07 13:47 | IPNPDOC ---
Subjective Review oF Systems Chief Complaint The patient is a 78-year-old female admitted with a reason for visit of Left Ureteral Stone. Events since Last Encounter No acute events o/n. Patient notes that she feels much better today. Her pain has improved significantly. Denies fevers or chills. Objective Physical Examination General Exam: Alert, Cooperative, No Acute Distress ABDOMEN EXAM: Soft Skin Exam: Nl turgor and temperature Neuro Exam: Normal Speech Psych Exam: Mental status NL, Mood NL Other physical findings catheter in place, draining clear urine Vital Signs/I&O Vital Signs Date Time Temp Pulse Resp B/P (MAP) Pulse Ox O2 Delivery O2 Flow Rate FiO2 05/07/19 12:00 98.3 87 20 111/55 (73) 95 1.0 05/06/19 14:50 Nasal Cannula I&O- Last 24 Hours up to 6 AM 05/07/19 06:00 Intake Total 660 ml Output Total 425 ml Balance 235 ml Laboratory Data Labs 24H Laboratory Tests 2 05/06/19 17:15: Bedside Glucose (Misc Panel) 232H 05/06/19 23:26: Bedside Glucose (Misc Panel) 195H 05/07/19 06:32: Nucleated Red Blood Cells % (auto) 0.0, Anion Gap 6L, Glomerular Filtration Rate 30.4L, Blood Urea Nitrogen 35H, Creatinine 1.73H, Sodium Level 143#, Potassium Level 5.1#, Chloride Level 109H, Carbon Dioxide Level 28, Calcium Level 8.4#L 05/07/19 11:42: Bedside Glucose (Misc Panel) 135H CBC/BMP Laboratory Tests 05/07/19 06:32 Red Blood Count 3.64 L, Mean Corpuscular Volume 107.1 H, Mean Corpuscular Hemoglobin 34.1 H, Mean Corpuscular Hemoglobin Concent 31.8 L, Red Cell Distribution Width 13.9, Calcium Level 8.4 #L FSBS Laboratory Tests Test 05/06/19 17:15 05/06/19 23:26 05/07/19 11:42 Range/Units Bedside Glucose (Misc Panel) 232 195 135 83-110 MG/DL Microbiology Microbiology 05/06/19 Blood Culture, Received Pending 05/06/19 Blood Culture, Received Pending 05/06/19 Urine Culture, Received Pending 05/06/19 Urine Culture, Received Pending Assessment/Plan Date Seen The patient was seen on 05/07/19. Patient Summary This is a 78 y/o F admitted w/ concern for sepsis due a UTI and an obstructing proximal left ureteral stone, now POD1 s/p cysto and left ureteral stent pl acement. Her WBC went up to 21.9 this morning, likely due to the surgery. Clinically she looks much better. Vitals are stable. Her cultures are still pending. Plan/VTE VTE Prophylaxis Ordered?: Yes VTE Exclusion Mechanical Proph: N/A:VTE Prophy Ordered Plan/Urinary Catheter Urinary Catheter: D/C Pham Plan - d/c catheter - antibiotic regimen per primary team - start flomax to help w/ stone passage (ordered) - my office will arrange f/u for her to be seen in a few weeks w/ a CT prior to assess for stone passage - if CT demonstrates that the stone is still present at that point, we will set her up for a left ureteroscopy w/ laser lithotripsy BRIDGETTE DASH MD May 07, 2019 13:47
[2019-05-07] MEDS: TAMSULOSIN 0.4 MG CAP PO SCH (15:37)
[2019-05-07 16:00] VITALS: BP 117/58
[2019-05-07 19:48] VITALS: BP 118/58
[2019-05-07] MEDS: MEROPENEM INJ 1 GM in APPROPRIATE DILUENT 1 EA IV SCH (20:43)
[2019-05-07] MEDS: LATANOPROST 0.005% OPHTH SOLN 2.5 ML OU SCH (20:44)
[2019-05-07] MEDS ORDERED: traZODone 100 MG TAB PO SCH (21:00)
[2019-05-08 04:00] VITALS: BP 140/63
[2019-05-08 08:00] VITALS: BP 156/66
[2019-05-08 08:01] LABS: HEMATOCRIT 37.6 % (36.0-47.0); HEMOGLOBIN 12.1 g/dl (12.0-15.5); MEAN CORPUSCULAR HEMOGLOBIN 34.3 pg (27.0-33.0); MEAN CORPUSCULAR HGB CONC 32.2 g/dl (32.0-36.5); MEAN CORPUSCULAR VOLUME 106.5 fl (80.0-96.0); PLATELET COUNT, AUTOMATED 119 10^3/uL (150-450); RED BLOOD COUNT 3.53 10^6/uL (4.00-5.40); WHITE BLOOD COUNT 13.8 10^3/uL (4.0-10.0)
[2019-05-08] MEDS: NS 1,000 ML IV SCH (08:03)
[2019-05-08 08:23] LABS: BASOPHILS 1 % (0-4)
[2019-05-08 08:25] LABS: ANISOCYTOSIS 1+; EOSINOPHILS 2 % (0-5); LYMPHOCYTES 6 % (16-52); MONOCYTES 5 % (0-8); NEUTROPHILS 78 % (35-75)
[2019-05-08 08:29] LABS: CALCIUM LEVEL 7.6 MG/DL (8.8-10.2); CREATININE FOR GFR 1.3 MG/DL (0.55-1.30); GLOMERULAR FILTRATION RATE 42.3 (>39); POTASSIUM SERUM 4.4 MEQ/L (3.5-5.1)
[2019-05-08] MEDS: HEPARIN SOD (PORCINE) 5000 UNITS/ML VIAL SC SCH (09:00)
[2019-05-08] MEDS: TAMSULOSIN 0.4 MG CAP PO SCH (09:14)
[2019-05-08] MEDS: HumaLOG INSULIN (NovoLOG) PER UNIT SC SCH ×2 (09:15→12:00)
[2019-05-08] MEDS ORDERED: CIPR-250 PO (11:49)
[2019-05-08] MEDS ORDERED: OXYC1TAB PO (12:02)
[2019-05-08] MEDS ORDERED: OXYC1TAB23 PO (12:41)
--- NOTE | 2019-05-09 18:37 | DS.PDOC ---
Discharge Summary General Date of Admission May 06, 2019 at 14:31 Date of Discharge 05/08/19 Primary Care Physician: A Attending Physician: COREY WEN MD Specialist/Consultants Involve: BRIDGETTE DASH MD Discharge Summary PROCEDURES PERFORMED DURING STAY: cystocope and ureter stenting. ADMITTING DIAGNOSES: 1. left ureter stone with hydronephrosis DISCHARGE DIAGNOSES: 1. left ureter stone with hydronephrosis 2. UTI, Ux +Enterobacter 3. Type 2 diabetes. 4. Coronary artery disease, status post coronary artery bypass graft (CABG). 5. Hypertension. 6. Dyslipidemia COMPLICATIONS/CHIEF COMPLAINT: Left Ureteral Stone. HISTORY OF PRESENT ILLNESS: . The patient is a 78-year-old white female with several chronic medical conditions listed below, came to the hospital for evaluation of left flank pain. History if provided by herself. She states she does not have history of kidney stone in the past and she was doing fine until last night and suddenly she said she developed severe pain located in her left flank, radiation down. The worst pain is about 8 out of 10 in severity and she denies fever, chills and she has frequent urination which she states is chronic. Due to severe pain, she came to the hospital for full evaluation. In the ER, she underwent abdominal CT scan which demonstrated she has left ureteral stone with hydronephrosis and antibiotic, Zosyn started in the ER and urologist was called for the consult. Meanwhile medicine service was called for admission. HOSPITAL COURSE: After admission, she was treated with IVF and IV abx; she was consulted with Urologist; she underwent cystoscope and ureter stenting on 05/07; her urine culture came back with Enterobacter; now she is medically stable and will go home with oral Cipro. DISCHARGE MEDICATIONS: Please see below. ALLERGIES: Please see below. PHYSICAL EXAMINATION ON DISCHARGE: VITAL SIGNS: Please see below. GENERAL: AA ox3, no distress HEENT: atraumatic NECK: no JVD CARDIOVASCULAR EXAMINATION: S1 S2 regular RESPIRATORY EXAMINATION: clear ABDOMINAL EXAMINATION: soft BS + non tender EXTREMITIES: no edema SKIN: no rash NEUROLOGICAL EXAMINATION: non focal PSYCHIATRIC EXAMINATION: no psychosis LABORATORY DATA: Please see below. IMAGING: abdominal CT PROGNOSIS: fair ACTIVITY: [As tolerated]. DIET: diabetic diet DISPOSITION: Home, Self-Care. ITEMS TO FOLLOWUP ON ON OUTPATIENT: Urologist in 1 week DISCHARGE CONDITION: [Stable]. TIME SPENT ON DISCHARGE: Greater than 35 minutes. Vital Signs/I&Os Vital Signs Date Time Temp Pulse Resp B/P (MAP) Pulse Ox O2 Delivery O2 Flow Rate FiO2 05/08/19 08:00 97.5 86 18 156/66 (96) 94 05/07/19 12:00 1.0 05/06/19 14:50 Nasal Cannula I&O- Last 24 Hours up to 6 AM 05/09/19 05:59 Intake Total 740 ml Output Total 270 ml Balance 470 ml Microbiology Microbiology 05/06/19 Blood Culture - Preliminary, Resulted 05/06/19 Blood Culture - Preliminary, Resulted No Growth after 72 hours. All specime... 05/06/19 Urine Culture - Final, Complete Enterobacter Aerogenes 05/06/19 Urine Culture - Final, Complete Enterobacter Aerogenes Discharge Medications Scheduled Aspirin (Aspirin) 325 Mg Tablet, 325 MG PO DAILY, (Reported) Ciprofloxacin HCl (Cipro) 250 Mg Tablet, 250 MG PO BID Insulin Detemir (Levemir Flextouch) 100 Unit/1 Ml Insuln.pen, 24 UNIT SC QHS, (Reported) Lisinopril (Lisinopril) 40 Mg Tablet, 40 MG PO QHS, (Reported) Metformin HCl (Metformin HCl) 1,000 Mg Tablet, 1,000 MG PO BID, (Reported) Pravastatin Sodium (Pravastatin Sodium) 40 Mg Tablet, 40 MG PO QHS, (Reported) Travoprost (Travatan Z) 0.004% 2.5ML Drops, 1 DROP OU QHS, (Reported) Trazodone HCl (Trazodone HCl) 100 Mg Tablet, 100 MG PO QHS, (Reported) Scheduled PRN Oxycodone HCl/Acetaminophen (Oxycodone-Acetaminophen 5-325) 1 Each Tablet, 1 TAB PO QIDP PRN for pain Allergies Coded Allergies: Sulfa (Sulfonamide Antibiotics) (Verified Allergy, Intermediate, HIVES, 05/06/19) Hives latex (Verified Allergy, Unknown, 05/06/19) codeine (Verified Adverse Reaction, Mild, GI UPSET, 05/06/19) GI Upset COREY WEN MD May 09, 2019 18:37
== END 2019-05-08 13:20 | disposition home or self-care (01) | DRG 854 ==
LOC: M ED 09:00 → M ED INP 14:31 → M PED 18:00
PROVIDERS: ADMIT Hospitalist; ATTEND Hospitalist
PROC: 0T778DZ Dilation of Left Ureter with Intraluminal Device, Via Natural or Artificial Opening Endoscopic (ICD-10-PCS; principal; 2019-05-06 14:30)
DX: A41.9 Sepsis, unspecified organism (principal); N13.6 Pyonephrosis; E87.1 Hypo-osmolality and hyponatremia; N17.9 Acute kidney failure, unspecified; N18.3 Chronic kidney disease, stage 3 (moderate); I12.9 Hypertensive chronic kidney disease with stage 1 through stage 4 chronic kidney disease, or unspecified chronic kidney disease; E78.5 Hyperlipidemia, unspecified; I25.10 Atherosclerotic heart disease of native coronary artery without angina pectoris; Z95.1 Presence of aortocoronary bypass graft; E11.9 Type 2 diabetes mellitus without complications; Z79.82 Long term (current) use of aspirin; Z79.899 Other long term (current) drug therapy; Z88.2 Allergy status to sulfonamides; Z91.040 Latex allergy status; Z88.5 Allergy status to narcotic agent

== ENCOUNTER 2019-05-10 09:57 | Emergency (ER) | payer MEDICARE ==
[~2019-05-10] VITALS: Ht 152.4 cm; Wt 90.9 kg
[~2019-05-10 09:57] MED LIST changes: +ASPI-262 PO; +CIPR-250 PO; +LEVE1INJ5 SC; +LISI40TA PO; +METF-877 PO; +OXYC1TAB PO; +OXYC1TAB23 PO; +PRAV40TA2 PO; +TRAV04OPD OU; +TRAZ-189 PO
[2019-05-10] MEDS ORDERED: cefTRIAXone SOD 1 GM in D5W MINI-BAG PLUS 50 ML IV ONE (10:45)
[2019-05-10 10:52] LABS: BASO # 0.1 10^3/uL (0.0-0.2); BASO % 0.7 % (0.0-1.0); EOS # 0.3 10^3/uL (0.0-0.50); EOS % 4.5 % (0.0-3.0); HEMOGLOBIN 12.6 g/dl (12.0-15.5); LYMPH # 1.1 10^3/uL (1.5-4.5); LYMPH % 14.7 % (24.0-44.0); MEAN CORPUSCULAR HEMOGLOBIN 32.4 pg (27.0-33.0); MEAN CORPUSCULAR HGB CONC 32.3 g/dl (32.0-36.5); MEAN CORPUSCULAR VOLUME 100.3 fl (80.0-96.0); MONO # 0.5 10^3/uL (0.0-0.8); MONO % 7.3 % (0.0-5.0); NEUTROPHILS # 5.2 10^3/uL (1.8-7.7); NEUTROPHILS % 71.3 % (36.0-66.0); PLATELET COUNT, AUTOMATED 166 10^3/uL (150-450); RED BLOOD COUNT 3.89 10^6/uL (4.00-5.40); WHITE BLOOD COUNT 7.4 10^3/uL (4.0-10.0)
[2019-05-10 11:11] LABS: CALCIUM LEVEL 8.4 MG/DL (8.8-10.2); CREATININE FOR GFR 1.16 MG/DL (0.55-1.30); GLOMERULAR FILTRATION RATE 48.2 (>39); POTASSIUM SERUM 4.1 MEQ/L (3.5-5.1)
[2019-05-10 11:15] LABS: ALT/SGPT 15 U/L (12-78); BILIRUBIN,DIRECT < 0.1 MG/DL (0.0-0.2); BILIRUBIN,TOTAL 0.3 MG/DL (0.2-1.0); TOTAL PROTEIN 7.1 GM/DL (6.4-8.2)
[2019-05-10] MEDS ORDERED: CIPR-249 PO (12:50)
[2019-05-10 13:01] VITALS: BP 161/75
--- NOTE | 2019-05-10 13:12 | CR.PDOC ---
General Date of Consultation: May 10, 2019 Referring Provider: RAQUEL CHASE Attending Physician: COREY WEN MD Consultation REASON FOR CONSULTATION/CHIEF COMPLAINT: bacteremia in ER HISTORY OF PRESENT ILLNESS: 78-year-old white female with several chronic medical conditions listed below, came to the hospital for evaluation of bacteremia. she was here from 05/06 to 05/08 due to left ureter stone and UTI; she was consulted with urologist and ureter stenting was done on 05/07; she was also found to have UTI and treated with initially Zosyn/Meropenem and the then Cipro; her urine culture was positive for enterobacter and she was discharged on oral Cipro; however one of her 2 blood c ultures came back positive for enterobacter so she was called back to ER today for further evaluation. she states she is doing well with fever or chills after discharge. today in ER, her CBC and BMP is WNL without any leukocytosis; Medicine called for further recommendation. ALLERGIES: see below HOME MEDICATIONS: Please see below. PAST MEDICAL HISTORY: 1. HTN 2. MD T2 3. CAD, s/p CABG 4. left ureter stone, s/p ureter stenting PAST SURGICAL HISTORY: 1. HTN 2. DM T2 3. CAD, s/p CABG 4. Dyslipidemia FAMILY HISTORY: no family member with CAD or DM or kidney stones SOCIAL HISTORY: Tobacco use:none ETOH: none Illicit drug use: none IV drug use:none she is full code REVIEW OF SYSTEMS: CONSTITUTIONAL: no fever no chills HEENT: no headache, no blurred vision CARDIOVASCULAR: no chest pain or palpitation RESPIRATORY: no sob, no cough, no sputum GENITOURINARY: no dysuria or hematuria or abdominal discharge MUSCULOSKELETAL: no general weakness GASTROINTESTINAL: no N/V/D, no abdominal pain SKIN: no rash or itching NEUROLOGICAL: no focal weakness PSYCHIATRIC: no agitation or confusion ENDOCRINE: no dizziness HEMATOLOGIC/LYMPHATIC: no bleeding ALLERGIC/IMMUNOLOGIC: no skin rash PHYSICAL EXAMINATION: VITAL SIGNS: Please see below. GENERAL APPEARANCE: AA Ox3, not in acute distress HEENT: atraumatic, DOMENIC, no jaundice, EOM normal RESPIRATORY: clear, no wheezing, no rales CARDIOVASCULAR: S1 S2 regular no murmur ABDOMEN: soft BS + non tenderness EXTREMITIES: no edema NEUROLOGICAL: no focal deficit PSYCHIATRIC: no acute psychosis LABORATORY DATA: Please see below. ASSESSMENT/PLAN: 1. UTI with enterobacter bacteremia and bacteruria 2. Left ureter stone, s/p stenting 3. DM T2 4. CAD, 5. HTN Recommendation: she was here a few days and had left ureter stent for obstructed ureter stone; her urine culture and 1 out 2 blood culture are positive for enterobacter; she was treated with IV Zosyn/meropenem in the hospital and discharged on oral Cipro; repeated blood cultures x2 are done today in ER; now she is afebrile, no leukocytosis and feeling well. She can be discharged home and continue oral Cipro for totally 10 days; I discussed with patient and her family and they agreed and I also discussed with AYLA Nicole who agreed to discharge patient home from ER. Vital Signs/I&O Vital Signs Date Time Temp Pulse Resp B/P (MAP) Pulse Ox O2 Delivery O2 Flow Rate FiO2 05/10/19 11:52 05/10/19 11:42 66 96 05/10/19 09:57 98.6 14 Room Air Laboratory Data Labs 24H Laboratory Tests 2 05/10/19 10:26: Aspartate Amino Transf (AST/SGOT) 20, Alanine Aminotransferase (ALT/SGPT) 15, Alkaline Phosphatase 87, Total Bilirubin 0.3, Direct Bilirubin < 0.1, Total Protein 7.1, Albumin 3.0L, Albumin/Globulin Ratio 0.73L 05/10/19 10:27: Immature Granulocyte % (Auto) 1.5, White Blood Count 7.4, Red Blood Count 3.89L, Hemoglobin 12.6, Hematocrit 39.0, Mean Corpuscular Volume 100.3H, Mean Corpuscular Hemoglobin 32.4, Mean Corpuscular Hemoglobin Concent 32.3, Red Cell Distribution Width 13.2, Platelet Count 166, Neutrophils (%) (Auto) 71.3H, Lymphocytes (%) (Auto) 14.7L, Monocytes (%) (Auto) 7.3H, Eosinophils (%) (Auto) 4.5H, Basophils (%) (Auto) 0.7, Neutrophils # (Auto) 5.2, Lymphocytes # (Auto) 1.1L, Monocytes # (Auto) 0.5, Eosinophils # (Auto) 0.3, Basophils # (Auto) 0.1, Nucleated Red Blood Cells % (auto) 0.0, Anion Gap 9, Glomerular Filtration Rate 48.2, Lactic Acid Level 1.9, Blood Urea Nitrogen 18, Creatinine 1.16, Sodium Level 145, Potassium Level 4.1, Chloride Level 109H, Carbon Dioxide Level 27, Calcium Level 8.4L CBC/BMP Laboratory Tests 05/10/19 10:27 Red Blood Count 3.89 L, Mean Corpuscular Volume 100.3 H, Mean Corpuscular Hemoglobin 32.4, Mean Corpuscular Hemoglobin Concent 32.3, Red Cell Distribution Width 13.2, Neutrophils (%) (Auto) 71.3 H, Lymphocytes (%) (Auto) 14.7 L, Monocytes (%) (Auto) 7.3 H, Eosinophils (%) (Auto) 4.5 H, Basophils (%) (Auto) 0.7, Neutrophils # (Auto) 5.2, Lymphocytes # (Auto) 1.1 L, Monocytes # (Auto) 0.5, Eosinophils # (Auto) 0.3, Basophils # (Auto) 0.1, Calcium Level 8.4 L Microbiology Microbiology 05/10/19 Blood Culture, Received Pending 05/10/19 Blood Culture, Received Pending Allergies Coded Allergies: Sulfa (Sulfonamide Antibiotics) (Verified Allergy, Intermediate, HIVES, 05/06/19) Hives latex (Verified Allergy, Unknown, 05/06/19) codeine (Verified Adverse Reaction, Mild, GI UPSET, 05/06/19) GI Upset Home Medications Scheduled Aspirin (Aspirin) 325 Mg Tablet, 325 MG PO DAILY, (Reported) Ciprofloxacin HCl (Cipro) 250 Mg Tablet, 250 MG PO BID for 5 Days, #10 Ciprofloxacin HCl (Cipro) 500 Mg Tablet, 500 MG PO BID for 5 Days, #10 Insulin Detemir (Levemir Flextouch) 100 Unit/1 Ml Insuln.pen, 24 UNIT SC QHS, (Reported) Lisinopril (Lisinopril) 40 Mg Tablet, 40 MG PO QHS, (Reported) Metformin HCl (Metformin HCl) 1,000 Mg Tablet, 1,000 MG PO BID, (Reported) Pravastatin Sodium (Pravastatin Sodium) 40 Mg Tablet, 40 MG PO QHS, (Reported) Travoprost (Travatan Z) 0.004% 2.5ML Drops, 1 DROP OU QHS, (Reported) Trazodone HCl (Trazodone HCl) 100 Mg Tablet, 100 MG PO QHS, (Reported) Scheduled PRN Oxycodone HCl/Acetaminophen (Oxycodone-Acetaminophen 5-325) 1 Each Tablet, 1 TAB PO QIDP PRN for pain for 5 Days, #20 COREY WEN MD May 10, 2019 13:12
== END 2019-05-10 13:10 | disposition home or self-care (01) ==
LOC: M ED 09:57
DX: R78.81 Bacteremia (principal); I25.2 Old myocardial infarction; E11.9 Type 2 diabetes mellitus without complications; I10 Essential (primary) hypertension; Z87.442 Personal history of urinary calculi; Z95.1 Presence of aortocoronary bypass graft; Z79.82 Long term (current) use of aspirin; Z79.4 Long term (current) use of insulin; Z79.899 Other long term (current) drug therapy; Z88.2 Allergy status to sulfonamides; Z88.5 Allergy status to narcotic agent; Z91.040 Latex allergy status
CPT/HCPCS: 36415; 80048; 80076; 83605; 85025; 87040; 93041; 96374; 99285; J0696

== ENCOUNTER 2019-05-12 09:52 | Emergency (ER) | payer MEDICARE ==
[~2019-05-12] VITALS: Ht 152.4 cm; Wt 90.9 kg
[~2019-05-12 09:52] MED LIST changes: +CIPR-249 PO
[2019-05-12] MEDS ORDERED: TRAZ-163 (10:03)
[2019-05-12] MEDS ORDERED: METF10004 (10:03)
[2019-05-12] MEDS ORDERED: MORPHINE 4 MG/ML 1ML VIAL/SYRINGE (J2270) IV ONE (12:00)
[2019-05-12] MEDS ORDERED: NS 1,000 ML IV ONE (12:00)
--- NOTE | 2019-05-12 13:15 | REP ---
Renal ultrasound: Comparison is the abdomen and pelvis CT dated 05/06/2019. The right kidney measures 11.2 x 5.2 x 4.2 cm. Left kidney measures 12.3 x 5.3 x 4.8 cm. The kidneys are normal size. Renal cortical echogenicity is normal bilaterally. There is no hydronephrosis on the right on the left. No renal calculi are identified by ultrasound. There are no solid or cystic renal masses. Bladder: The bladder is nondistended and cannot be evaluated. Impression: Negative bilateral renal ultrasound. No renal calculi are identified by ultrasound. There is no hydronephrosis. Electronically Signed by Philippe Thomson MD 05/12/2019 01:07 P
[2019-05-12 13:22] LABS: BASO # 0.1 10^3/uL (0.0-0.2); BASO % 0.9 % (0.0-1.0); EOS # 0.1 10^3/uL (0.0-0.50); EOS % 1.9 % (0.0-3.0); HEMATOCRIT 39.9 % (36.0-47.0); HEMOGLOBIN 13.1 g/dl (12.0-15.5); LYMPH # 0.8 10^3/uL (1.5-4.5); LYMPH % 13.8 % (24.0-44.0); MEAN CORPUSCULAR HEMOGLOBIN 33.4 pg (27.0-33.0); MEAN CORPUSCULAR HGB CONC 32.8 g/dl (32.0-36.5); MEAN CORPUSCULAR VOLUME 101.8 fl (80.0-96.0); MONO # 0.9 10^3/uL (0.0-0.8); MONO % 14.9 % (0.0-5.0); NEUTROPHILS # 3.8 10^3/uL (1.8-7.7); NEUTROPHILS % 64.1 % (36.0-66.0); PLATELET COUNT, AUTOMATED 194 10^3/uL (150-450); RED BLOOD COUNT 3.92 10^6/uL (4.00-5.40); WHITE BLOOD COUNT 5.9 10^3/uL (4.0-10.0)
--- NOTE | 2019-05-12 13:55 | REP ---
KUB: Single view. History: Left flank pain. Left ureteral stent. Comparison KUB study February 26, 2014. Comparison retrograde ureterogram May 06, 2019. CT study from May 06, 2019 showed a left mid ureteral calculus. Findings: Double pigtail left ureteral stent is noted in place. There has occur a linear calcification in the region of the left renal hilus near this date and the proximal pigtail. This may be vascular. No other urinary tract calculus is appreciated. There is a trans sacral nerve stimulator lead. Bowel gas pattern is normal. Impression: Double pigtail left ureteral stent in place. No definite urinary tract calculus visible. Electronically Signed by Branden Gasca MD 05/12/2019 01:47 P
[2019-05-12 14:00] LABS: ALT/SGPT 25 U/L (12-78); BILIRUBIN,DIRECT 0.1 MG/DL (0.0-0.2); BILIRUBIN,TOTAL 0.5 MG/DL (0.2-1.0); BLOOD UREA NITROGEN 17 MG/DL (7-18); CALCIUM LEVEL 9.5 MG/DL (8.8-10.2); CARBON DIOXIDE LEVEL 27 MEQ/L (21-32); CHLORIDE LEVEL 103 MEQ/L (98-107); CREATININE FOR GFR 1.33 MG/DL (0.55-1.30); GLOMERULAR FILTRATION RATE 41.2 (>39); GLUCOSE, FASTING 142 MG/DL (70-100); POTASSIUM SERUM 3.9 MEQ/L (3.5-5.1); SODIUM LEVEL 139 MEQ/L (136-145); TOTAL PROTEIN 6.8 GM/DL (6.4-8.2); TROPONIN I < 0.02 NG/ML (< 0.10)
[2019-05-12 15:05] LABS: APPEARANCE, URINE CLOUDY (CLEAR); BACTERIA, URINE AUTO 1+ (NEGATIVE); BILIRUBIN, URINE AUTO NEGATIVE (NEGATIVE); BLOOD, URINE BLOOD 3+ (NEGATIVE); COLOR, URINE YELLOW (YELLOW); GLUCOSE, URINE (UA) AUTO NEGATIVE (NEGATIVE); KETONE, URINE AUTO NEGATIVE (NEGATIVE); LEUKOCYTE ESTERASE, URINE AUTO 1+ (NEGATIVE); NITRITE, URINE AUTO NEGATIVE (NEGATIVE); PROTEIN, URINE AUTO 1+ mg/dL (NEGATIVE); RBC, URINE AUTO 157 /HPF (0-3); SPECIFIC GRAVITY URINE AUTO 1.011 (1.002-1.035); SQUAMOUS EPITHELIAL CELL UR AU 0 /HPF (0-6); UROBILINOGEN, URINE AUTO 0.2 mg/dL (0.0-2.0); WBC, URINE AUTO 23 /HPF (0-3)
[2019-05-12 18:19] VITALS: BP 173/71
--- NOTE | 2019-05-12 20:51 | ECGEPIP ---
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 Order Number: [id number] Reading MD: Jb Salgado Measurements Intervals [place] Rate: 80 P: 252 PA: 321 QRS: 23 QRSD: 85 T: 128 QT: 377 QTc: 437 Interpretive Statements ELECTRONIC [employer]EM[employer] ST DEVIATION AND MODERATE T-WAVE ABNORMALITY, CONSIDER ANTERIOR ISCHEMIA Comparison tracing not on file Electronically Signed on 05-12-2019 20:51:07 EDT by Jb Salgado
== END 2019-05-12 18:30 | disposition home or self-care (01) ==
LOC: M ED 09:52
DX: E86.0 Dehydration (principal); I10 Essential (primary) hypertension; E11.9 Type 2 diabetes mellitus without complications; E78.00 Pure hypercholesterolemia, unspecified; Z79.899 Other long term (current) drug therapy; Z79.84 Long term (current) use of oral hypoglycemic drugs; Z79.82 Long term (current) use of aspirin; Z88.1 Allergy status to other antibiotic agents; Z88.2 Allergy status to sulfonamides; Z88.5 Allergy status to narcotic agent; Z91.040 Latex allergy status

== ENCOUNTER 2019-05-26 16:41 | Emergency (ER) | payer MEDICARE ==
[~2019-05-26] VITALS: Ht 152.4 cm; Wt 92.7 kg
[~2019-05-26 16:41] MED LIST changes: +METF10004; +TRAZ-163
[2019-05-26 17:29] LABS: BASO # 0.1 10^3/uL (0.0-0.2); BASO % 0.7 % (0.0-1.0); EOS # 0.5 10^3/uL (0.0-0.50); EOS % 4.2 % (0.0-3.0); HEMATOCRIT 40.8 % (36.0-47.0); HEMOGLOBIN 13.4 g/dl (12.0-15.5); LYMPH # 1.4 10^3/uL (1.5-4.5); LYMPH % 12.7 % (24.0-44.0); MEAN CORPUSCULAR HEMOGLOBIN 33.9 pg (27.0-33.0); MEAN CORPUSCULAR HGB CONC 32.8 g/dl (32.0-36.5); MEAN CORPUSCULAR VOLUME 103.3 fl (80.0-96.0); MONO # 1.2 10^3/uL (0.0-0.8); MONO % 10.9 % (0.0-5.0); NEUTROPHILS % 71.1 % (36.0-66.0); PLATELET COUNT, AUTOMATED 438 10^3/uL (150-450); RED BLOOD COUNT 3.95 10^6/uL (4.00-5.40); WHITE BLOOD COUNT 11.2 10^3/uL (4.0-10.0)
[2019-05-26 18:00] LABS: ALBUMIN 3.4 GM/DL (3.2-5.2); BILIRUBIN,DIRECT 0.2 MG/DL (0.0-0.2); BILIRUBIN,TOTAL 0.4 MG/DL (0.2-1.0); TOTAL PROTEIN 7.9 GM/DL (6.4-8.2)
[2019-05-26] MEDS ORDERED: ACET-683 PO (18:18)
[2019-05-26] MEDS ORDERED: MORPHINE 2 MG/ML 1ML SYRINGE (J2270) IV ONE ×2 (18:30→19:30)
[2019-05-26] MEDS ORDERED: ONDANSETRON 4MG/2ML VIAL (J2405) IV ONE (18:30)
[2019-05-26 18:49] LABS: CALCIUM LEVEL 9.6 MG/DL (8.8-10.2); CREATININE FOR GFR 1.79 MG/DL (0.55-1.30); GLOMERULAR FILTRATION RATE 29.2 (>39); POTASSIUM SERUM 4.6 MEQ/L (3.5-5.1)
[2019-05-26] MEDS ORDERED: NS 1,000 ML IV ONE (20:15)
--- NOTE | 2019-05-26 21:16 | REPVR ---
EXAM: CT Abdomen and Pelvis Without Contrast EXAM DATE/TIME: 05/26/2019 6:59 PM CLINICAL HISTORY: 78 years old, female; Abdominal pain; Localized; Left; Additional info: Left flank pain, history of kidney stone, RO obstr TECHNIQUE: Imaging protocol: Axial computed tomography images of the abdomen and pelvis without contrast. Coronal and sagittal reformatted images were created and reviewed. Radiation optimization: All CT scans at this facility use at least one of these dose optimization techniques: automated exposure control; mA and/or kV adjustment per patient size (includes targeted exams where dose is matched to clinical indication); or iterative reconstruction. COMPARISON: CT ABD PELVIS W/O CONTRAST 05/06/2019 10:45 AM FINDINGS: Lungs: There is dependent atelectasis and mild fibrotic changes of the lung bases. Mediastinum: Small hiatal hernia. Liver: Normal. No mass. Gallbladder and bile ducts: Tiny stones layer within the gallbladder. Pancreas: There is atrophy and fatty replacement of the pancreas. Spleen: Normal. No splenomegaly. Adrenals: The adrenal glands are normal. Kidneys and ureters: There has been placement of a left double-J ureteral stent, with persistent mild hydronephrosis. There is a punctate calcification adjacent to the proximal stent, in the region of the previously visualized 3 mm proximal ureteral stone. There is mild left perinephric stranding. No right-sided hydronephrosis. There are bilateral renal vascular calcifications. Stomach and bowel: Normal. No obstruction. No mucosal thickening. Appendix: No evidence of appendicitis. Intraperitoneal space: Normal. No free air. No significant fluid collection. Vasculature: There are coronary artery atherosclerotic calcifications. There is atherosclerosis of the aorta and branches. Lymph nodes: Normal. No enlarged lymph nodes. Bladder: Unremarkable as visualized. Reproductive: There are coarse calcifications in both ovaries. The uterus is surgically absent. Bones/joints: The bones are osteopenic. There are degenerative changes of the lumbar spine. There is no acute fracture. Soft tissues: Unremarkable. IMPRESSION: 1. Placement of left double-J ureteral stent with mild hydronephrosis. There is a punctate calcification adjacent to the stent in the proximal ureter. 2. Cholelithasis. Electronically signed by: Jodi Puri On 05/26/2019 21:15:54 PM
[2019-05-26 21:48] VITALS: BP 147/70
[2019-05-26] MEDS ORDERED: CIPR-249 PO (22:19)
[2019-05-26] MEDS ORDERED: TRAM50TA2 PO (22:19)
[2019-05-26] MEDS ORDERED: traMADol 50 MG TAB (BULK 4 TAB ED) PO ONE (22:30)
[2019-05-26] MEDS ORDERED: CIPROFLOXACIN 500 MG TAB PO ONE (23:00)
== END 2019-05-26 22:38 | disposition home or self-care (01) ==
LOC: M ED 16:41
DX: N39.0 Urinary tract infection, site not specified (principal); N20.0 Calculus of kidney; E11.9 Type 2 diabetes mellitus without complications; I10 Essential (primary) hypertension; I25.10 Atherosclerotic heart disease of native coronary artery without angina pectoris; E78.5 Hyperlipidemia, unspecified; I25.2 Old myocardial infarction; Z79.899 Other long term (current) drug therapy; Z79.4 Long term (current) use of insulin; Z88.1 Allergy status to other antibiotic agents; Z88.2 Allergy status to sulfonamides; Z88.5 Allergy status to narcotic agent; Z91.040 Latex allergy status
CPT/HCPCS: 36415; 74176; 80047; 80048; 80076; 81001; 83690; 85025; 87088; 87186; 96361; 96374; 96375; 96376; 99284; J2270; J2405

== ENCOUNTER → 2019-06-23 | Outpatient (CLI) | payer MEDICARE ==
[~2019-06-23] MED LIST changes: +ACET-683 PO; +TRAM50TA2 PO
[2019-06-23 16:36] LABS: ALBUMIN 3.2 GM/DL (3.2-5.2); BILIRUBIN,TOTAL 0.2 MG/DL (0.2-1.0); CALCIUM LEVEL 8.7 MG/DL (8.8-10.2); CREATININE FOR GFR 1.77 MG/DL (0.55-1.30); GLOMERULAR FILTRATION RATE 29.6 (>39); POTASSIUM SERUM 5.1 MEQ/L (3.5-5.1); TOTAL PROTEIN 7.1 GM/DL (6.4-8.2)
[2019-06-23 16:37] LABS: BASO # 0.1 10^3/uL (0.0-0.2); BASO % 0.7 % (0.0-1.0); EOS # 0.4 10^3/uL (0.0-0.50); EOS % 5.8 % (0.0-3.0); HEMATOCRIT 38.8 % (36.0-47.0); HEMOGLOBIN 11.9 g/dl (12.0-15.5); LYMPH # 1.3 10^3/uL (1.5-4.5); MEAN CORPUSCULAR HEMOGLOBIN 32.2 pg (27.0-33.0); MEAN CORPUSCULAR HGB CONC 30.7 g/dl (32.0-36.5); MEAN CORPUSCULAR VOLUME 105.1 fl (80.0-96.0); MONO # 0.5 10^3/uL (0.0-0.8); MONO % 7.4 % (0.0-5.0); NEUTROPHILS # 4.7 10^3/uL (1.8-7.7); NEUTROPHILS % 66.3 % (36.0-66.0); PLATELET COUNT, AUTOMATED 250 10^3/uL (150-450); RED BLOOD COUNT 3.69 10^6/uL (4.00-5.40); WHITE BLOOD COUNT 7.1 10^3/uL (4.0-10.0)
--- NOTE | 2019-06-24 03:14 | REP ---
Clinical: Preoperative assessment (nephrolithiasis) . Comparison: 07/23/2017 . Findings: Cardiomegaly with evidence of prior sternotomy and CABG. Lung ram demonstrate chronic-appearing interstitial changes without effusion or pneumothorax. Multiple old healed left rib fractures and generalized osteopenia noted. Impression: Chronic stable changes. Electronically Signed by Tavon Kaur MD 06/24/2019 03:05 A
== END ==
LOC: M LRY 10:15
PROVIDERS: ATTEND Nurse Practitioner Adult Health
DX: Z01.811 Encounter for preprocedural respiratory examination (principal); N20.0 Calculus of kidney; R30.0 Dysuria; I51.7 Cardiomegaly

== ENCOUNTER → 2019-06-24 | Outpatient (CLI) | payer MEDICARE ==
[~2019-06-24] MED LIST changes: +AMLO10TA5 PO; +AMOX500C PO; +ASPI81TA26 PO; +BACITAB PO; +BACL10TA2 PO; +CEFD300CAP PO; +DOXA1TAB42 PO; +EXCETAB33 PO; +FURO40TA2 PO; +INSUDET SC; +LASI40TA9 PO; +LEVA1TAB2 PO; +METH-855 PO; +NYST10006 TOP; +NYST1POW9 TOP; +RISATAB3 PO; -TRAZ-163; +TRAZ-257
--- NOTE | 2019-06-25 12:02 | REP ---
Clinical: Ureteral stone. Comparison: 05/26/2019. Technique: Axial noncontrast images from the lung bases to the pubic symphysis with coronal and sagittal re-formations. Findings: Lung bases demonstrate chronic-appearing fibroatelectatic change along with small hiatal hernia. The left ureteral stent is in stable satisfactory position and bilateral intrarenal calculi measuring up to approximately 2.5 mm remain unchanged and may represent renovascular calcifications although small nonobstructing renal pelvic calcifications cannot be excluded. Punctate calcification adjacent to the proximal/mid left ureteral stent is suspected. Level of hydronephrosis involving the left kidney is essentially unchanged. The bladder is collapsed. Liver, spleen, pancreas, and bilateral adrenal glands are relatively normal. Cholelithiasis noted without acute cholecystitis. No evidence for bowel obstruction. Scattered diverticula suggested without acute diverticulitis. Evidence of prior hysterectomy. No ascites. No free air. No adenopathy. Atherosclerotic changes of the aorta and vasculature without aneurysm. Musculoskeletal structures are intact and old rib fractures are again noted. Impression: 1. Essentially no significant change from prior examination related to the urinary tract system. Left ureteral stent is in stable satisfactory position and punctate calculus adjacent to proximal/mid ureter cannot be excluded. Renovascular calcifications and/or small nonobstructing renal calculi remain unchanged. The level of left proximal hydronephrosis remains stable. 2. Cholelithiasis. Electronically Signed by Tavon Kaur MD 06/25/2019 05:59 A
== END ==
LOC: M RAD 11:07
PROVIDERS: ATTEND Nurse Practitioner Family
DX: N20.1 Calculus of ureter (principal); K80.20 Calculus of gallbladder without cholecystitis without obstruction

== ENCOUNTER → 2019-07-28 | Outpatient (REF) | payer MEDICARE ==
[~2019-07-28] MED LIST changes: -AMLO10TA5 PO; -AMOX500C PO; -ASPI81TA26 PO; -BACITAB PO; -BACL10TA2 PO; -CEFD300CAP PO; -DOXA1TAB42 PO; -EXCETAB33 PO; -FURO40TA2 PO; -INSUDET SC; -LASI40TA9 PO; -LEVA1TAB2 PO; -METH-855 PO; -NYST10006 TOP; -NYST1POW9 TOP; -RISATAB3 PO; +TRAZ-163; -TRAZ-257
[2019-07-28 14:11] LABS: APPEARANCE, URINE TURBID (CLEAR); BACTERIA, URINE AUTO 3+ (NEGATIVE); BILIRUBIN, URINE AUTO NEGATIVE (NEGATIVE); BLOOD, URINE BLOOD 3+ (NEGATIVE); COLOR, URINE YELLOW (YELLOW); GLUCOSE, URINE (UA) AUTO NEGATIVE (NEGATIVE); KETONE, URINE AUTO NEGATIVE (NEGATIVE); LEUKOCYTE ESTERASE, URINE AUTO 3+ (NEGATIVE); MUCUS, URINE SMALL (NEGATIVE); NITRITE, URINE AUTO NEGATIVE (NEGATIVE); PROTEIN, URINE AUTO 2+ mg/dL (NEGATIVE); RBC, URINE AUTO TNTC /HPF (0-3); SPECIFIC GRAVITY URINE AUTO 1.016 (1.002-1.035); SQUAMOUS EPITHELIAL CELL UR AU 2 /HPF (0-6); UROBILINOGEN, URINE AUTO 0.2 mg/dL (0.0-2.0); WBC, URINE AUTO TNTC /HPF (0-3)
== END ==
LOC: M SMT 13:18
PROVIDERS: ATTEND Nurse Practitioner Family
DX: Z01.818 Encounter for other preprocedural examination (principal); N20.1 Calculus of ureter

== ENCOUNTER 2019-08-01 05:45 | Day surgery (SDC) | payer MEDICARE ==
[~2019-08-01] VITALS: Ht 152.4 cm; Wt 88.5 kg
[2019-08-01] MEDS ORDERED: LIDOCAINE 1% MDV 20ML VIAL SQ PRN (06:00)
[2019-08-01] MEDS ORDERED: CONRAY-60 60% 50ML VIAL (Q9961) As Ordered ONE (06:55)
[2019-08-01] MEDS ORDERED: ceFAZolin SOD 2 GM in IV 1 EA IV ONE (07:00)
[2019-08-01] MEDS ORDERED: LR 1,000 ML IV ONE (07:00)
[2019-08-01] MEDS ORDERED: dexameTHASONE 4 MG/ML 1ML VIAL (J1100) As Ordered ONE (07:16)
[2019-08-01] MEDS ORDERED: fentaNYL 100 MCG/2 ML INJECTION (J3010) As Ordered ONE (07:16)
[2019-08-01] MEDS ORDERED: MIDAZOLAM INJ 2 MG/2 ML VIAL (J2250) As Ordered ONE (07:16)
[2019-08-01] MEDS ORDERED: ONDANSETRON 4MG/2ML VIAL (J2405) As Ordered ONE (07:16)
[2019-08-01] MEDS ORDERED: LIDOCAINE 2% INJ 100 MG/5 ML SDV (FOR ANES.) As Ordered ONE (07:16)
[2019-08-01] MEDS ORDERED: PROPOFOL 200 MG/20 ML VIAL As Ordered ONE (07:16)
[2019-08-01] MEDS ORDERED: KETOROLAC 60 MG/2 ML VIAL (J1885) As Ordered ONE (08:20)
[2019-08-01] MEDS ORDERED: METOPROLOL 5 MG/5 ML VIAL As Ordered ONE (08:42)
[2019-08-01] MEDS ORDERED: LR 1,000 ML IV SCH (08:45)
[2019-08-01] MEDS ORDERED: ONDANSETRON 4MG/2ML VIAL (J2405) IV PRN (08:45)
[2019-08-01] MEDS ORDERED: fentaNYL 100 MCG/2 ML INJECTION (J3010) IV PRN (08:45)
[2019-08-01] MEDS ORDERED: ACETAMINOPHEN TAB 650MG DOSE (2X325MG) PO PRN (08:45)
[2019-08-01] MEDS ORDERED: oxyCODONE 5MG TAB PO PRN (08:45)
--- NOTE | 2019-08-01 08:56 | REP ---
Retrograde pyelogram: Three views: History: Cystoscopy and left ureteral stent. 17 seconds of fluoroscopy time is reported. Findings: A transsacral neurostimulator catheter is seen. A sequence of three fluoroscopically obtained last image hold spot radiographs of the abdomen document a left ureteral cannulation, contrast injection, and stent placement. Electronically Signed by Branden Gasca MD 08/01/2019 10:49 A
[2019-08-01] MEDS ORDERED: METOPROLOL 5 MG/5 ML VIAL IV ONE (09:00)
[2019-08-01] MEDS ORDERED: hydrALAZINE INJ 20 MG/ML VIAL As Ordered ONE (09:03)
[2019-08-01] MEDS ORDERED: hydrALAZINE INJ 20 MG/ML VIAL IV ONE (09:30)
[2019-08-01 10:45] VITALS: BP 169/88
--- NOTE | 2019-08-01 14:28 | RO ---
DATE OF PROCEDURE: 08/01/2019 PREPROCEDURE DIAGNOSIS: Left ureteral stone. POSTPROCEDURE DIAGNOSIS: Left ureteral stone. PROCEDURE: Cystoscopy, left ureteroscopy with basket extraction, left retrograde pyelogram with intraoperative interpretation of images, left ureteral stent placement. SURGEON: Dr. Robb Rosas DEEP SUBMERGENCE VEHICLE CREWMEMBER: None. ANESTHESIA: General. OPERATIVE INDICATIONS: This is a 78-year-old female who was brought to the operating room approximately 6-8 weeks ago and after cystoscopy and left ureteral stent placement for an obstructing proximal left ureteral stone as well as what appeared to be sepsis due to urinary tract infection. She was treated with antibiotics and brought back to the operating room today for definitive management of her stone. DESCRIPTION OF PROCEDURE: The patient was brought to the operating room and general anesthesia was induced. Prophylactic antibiotics were infused. She was placed in dorsal lithotomy position and prepped and draped in the usual sterile fashion. A rigid cystoscope was inserted into the urethral meatus and advanced into the bladder. Once inside the bladder, the previously placed left ureteral stent was grasped and withdrawn until the distal end was protruding from the urethral meatus. I then advanced a wire up the stent and then the stent was removed. I then advanced the ureteral access sheath up the wire. I went up the access sheath with the flexible ureteroscope and examined the mid to proximal ureter. Of note, I did not see any stone in the mid to proximal ureter, but her ureter looked extremely inflamed and bled easily. The kidney was thoroughly examined and no stones were seen within the kidney. Of note, there was a large amount of debris inside the kidney. I used a basket to extract the majority of the larger amounts of debris out of the kidney. Once I was done, a retrograde pyelogram was performed and notable for mild left hydronephrosis with no extravasation. I then withdrew the ureteroscope along with access sheath and examined the ureter again, including the distal ureter and no stones were seen. Once again, of note the ureter did appear to be very much irritated and inflamed. At this point, I decided to place a new stent considering the amount of debris that was in the kidney as well as concern that the ureter would become edematous. At this point, I placed a 7 [place] x 22-32 cm JJ ureteral stent up into the left collecting system. The wire was removed and there were adequate curls of the stent in the left renal pelvis and in the bladder. The bladder was then emptied of all fluids and this marked the conclusion of the procedure. The patient was taken out of the dorsal lithotomy position, awakened from anesthesia and transported to the recovery room in stable condition. Estimated blood loss: 5 mL. Complications: None. Specimen: None. Plan: The patient will followup in the clinic in a few weeks for stent removal. YAMILET
== END 2019-08-01 10:58 | disposition home or self-care (01) ==
LOC: M SDC 05:45
PROVIDERS: ATTEND Urology
DX: N20.0 Calculus of kidney (principal); N20.1 Calculus of ureter; I10 Essential (primary) hypertension; I25.10 Atherosclerotic heart disease of native coronary artery without angina pectoris; I25.2 Old myocardial infarction; E78.5 Hyperlipidemia, unspecified; E11.9 Type 2 diabetes mellitus without complications; Z91.040 Latex allergy status; Z88.5 Allergy status to narcotic agent; Z88.2 Allergy status to sulfonamides; Z79.82 Long term (current) use of aspirin; Z79.84 Long term (current) use of oral hypoglycemic drugs; Z87.891 Personal history of nicotine dependence; Z79.899 Other long term (current) drug therapy
CPT/HCPCS: 52332; 52352; 74420; C1769; C1894; C2617; J0690; J1100; J1885; J2250; J2405; J3010; Q9961

== ENCOUNTER 2019-08-15 16:19 | Inpatient (IN) | payer MEDICARE ==
[~2019-08-15] VITALS: Ht 152.4 cm; Wt 89.3 kg
[2019-08-15 16:00] VITALS: BP 148/76
[2019-08-15] MEDS ORDERED: ONDANSETRON 4MG/2ML VIAL (J2405) IV PRN (17:15)
[2019-08-15] MEDS ORDERED: GLUCAGON FOR INJ 1 MG VIAL (J1610) SC PRN (17:30)
[2019-08-15] MEDS ORDERED: GLUCOSE 4 GM CHEW TABLET PO PRN (17:30)
[2019-08-15] MEDS ORDERED: DEXTROSE 50% 50 ML SYRINGE IV PRN (17:30)
[2019-08-15] MEDS: HumaLOG INSULIN (NovoLOG) PER UNIT SC SCH ×2 (18:23→22:01)
[2019-08-15 18:50] LABS: ALBUMIN 2.4 GM/DL (3.2-5.2); BILIRUBIN,TOTAL 0.8 MG/DL (0.2-1.0); CALCIUM LEVEL 8.4 MG/DL (8.8-10.2); CREATININE FOR GFR 1.82 MG/DL (0.55-1.30); GLOMERULAR FILTRATION RATE 28.7 (>39); POTASSIUM SERUM 4.5 MEQ/L (3.5-5.1); TOTAL PROTEIN 6.8 GM/DL (6.4-8.2)
[2019-08-15] MEDS: ACETAMINOPHEN TAB 650MG DOSE (2X325MG) PO PRN ×2 (18:54→20:19)
[2019-08-15] MEDS: PHENAZOPYRIDINE 100 MG TAB PO SCH (20:04)
[2019-08-15] MEDS: PIPERACILLIN/TAZOBACTAM SOD 3.375 GM in D5W MINI-BAG PLUS 50 ML IV SCH (20:05)
[2019-08-15] MEDS: NYSTATIN OINTMENT 15 GM TOP SCH (20:05)
--- NOTE | 2019-08-15 20:54 | HPEPDOC ---
General Date of Admission Aug 15, 2019 at 16:19 Date of Service: Aug 15, 2019 Chief Complaint The patient is a 78-year-old female admitted with a reason for visit of Urosepsis. Source: Patient, Family, Old records Exam Limitations: Clinical conditions Timing/Duration: Unsure Severity: Moderate Associated Symptoms: Fever, Chills, Nausea, Vomiting History of Present Illness This is a 78-year-old female with a history of nephrolithiasis. This involved primarily her left kidney and her left ureter. The patient underwent placement of a ureteral stent in April 2019. Patient reports that the stent was removed and replaced 2 weeks ago. There are subsequent plans for stent removal today. I report. The patient has passed the stone and does not require lithotripsy. In any case, when the patient presented for stent removal. She was noted to be quite febrile. Concern was raised for infection and she was sent to the hospital for admission. The patient relates she's had fever and chills for at least 2 days. She also describes right ears. He's also had nausea and states she did have vomiting yesterday associated with this. She also has had dysuria but no hematuria. She has had considerable perineal irritation. Patient has had prior concern for urinary tract infection; recent culture was positive for Aerococcus urinae. Home Medications Scheduled Aspirin (Aspirin) 325 Mg Tablet, 325 MG PO QHS, (Reported) Insulin Detemir (Levemir Flextouch) 100 Unit/1 Ml Insuln.pen, 24 UNIT SC QHS, (Reported) Lisinopril (Lisinopril) 40 Mg Tablet, 40 MG PO QHS, (Reported) Metformin HCl (Metformin HCl) 1,000 Mg Tablet, 1,000 MG PO BID, (Reported) Pravastatin Sodium (Pravastatin Sodium) 40 Mg Tablet, 40 MG PO QHS, (Reported) Travoprost (Travatan Z) 0.004% 2.5ML Drops, 1 DROP OU QHS, (Reported) Trazodone HCl (Trazodone HCl) 100 Mg Tablet, 100 MG PO QHS, (Reported) Scheduled PRN Acetaminophen (Acetaminophen) 500 Mg Tablet, 1,000 MG PO Q6H PRN for BACK PAIN, (Reported) Allergies Coded Allergies: Sulfa (Sulfonamide Antibiotics) (Verified Allergy, Intermediate, HIVES, 07/09/19) Hives latex (Verified Allergy, Intermediate, hives, 07/09/19) codeine (Verified Adverse Reaction, Mild, GI UPSET, 07/09/19) GI Upset Past Medical History Medical History Past medical history is remarkable for coronary artery disease, n hx-hvfbeep-tfxffzrsr diabetes mellitus, chronic pain syndrome, hypertension, osteoarthritis, dyslipidemia Surgical History Surgical history includes tubal ligation, bladder suspension and mesh sling, arthroscopic surgery to the shoulder, cataract surgery, partial hysterectomy, exploratory laparotomy, coronary artery bypass surgery 3 Family History Patient relates that no other family members have heart disease, kidney stones or diabetes. 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 Physical Examination General Exam: Positive: Cooperative, Mild Distress (the patient is ill- appearing), Other (the patient occasionally exhibits tremor which could be right gutters) Eye Exam: Positive: PERRLA, Conjunctiva & lids normal ENT Exam: Positive: Atraumatic, Mucous membr. moist/pink, Nares Patent Neck Exam: Positive: Supple; Negative: JVD, thyromegaly Chest Exam: Positive: Clear to auscultation, Normal air movement Heart Exam: Positive: Rate Normal, Regular Rhythm, Normal S1, Normal S2; Negative: Murmurs, Rubs Abdomen Exam: Positive: Normal bowel sounds, Soft, Tenderness (the patient does not have any suprapubic or flank tenderness to palpation); Negative: Hepatospenomegaly Extremity Exam: Positive: Normal pulses; Negative: Clubbing, Cyanosis, Edema Skin Exam: Positive: Nl turgor and temperature; Negative: Breakdown, Lesion Neuro Exam: Positive: Normal Speech, Sensation Intact, Cranial Nerves 3-12 NL Psych Exam: Positive: Mental status NL, Mood NL, Oriented x 3 Vital Signs Vital Signs Date Time Temp Pulse Resp B/P (MAP) Pulse Ox O2 Delivery O2 Flow Rate FiO2 08/15/19 16:00 102.1 85 19 148/76 (100) 94 Room Air Laboratory Data Labs 24H Laboratory Tests 2 08/15/19 17:42: Anion Gap 7L, Glomerular Filtration Rate 28.7L, Lactic Acid Level 1.0, Calcium Level 8.4L, Total Bilirubin 0.8, Aspartate Amino Transf (AST/SGOT) 11, Alanine Aminotransferase (ALT/SGPT) 18, Alkaline Phosphatase 128H, Total Protein 6.8, Albumin 2.4L, Albumin/Globulin Ratio 0.55L 08/15/19 18:18: Bedside Glucose (Misc Panel) 207H CBC/BMP Laboratory Tests 08/15/19 17:42 Microbiology Microbiology 08/15/19 Blood Culture, Received Pending Assessment/Plan 1. Probable pyelonephritis. The patient has had fever up to 102.1 with chills and rigors. She's also had dysuria. Risk factor is the presence of the left-sided urinary stent. Plans are to obtain initial laboratory studies inclusive of CBC, renal function and urine/blood cultures. She can then be started on empiric antibiotics. She may also need some IV hydration. Will make antipyretic and antinausea medications available. 2. Nephrolithiasis. The patient states that she has likely passed a stone and will not require lithotripsy. She is expectant of stent removal. This will be deferred to the urology service. 3. Rvs-oejcvrm-myaeuucao diabetes mellitus. We will restore the patient to her usual basal bolus insulin dosage with sliding scale available for additional glucose control as needed. [facility]. Given her fever there is concern for sepsis. She does not otherwise have hypotension or tachycardia, but she is certainly at risk of developing it. We'll continue to aggressively care for her. Plan / VTE VTE Prophylaxis Ordered?: Yes Plan IVF: Initiate Diet: Continue Current Activity: Continue Current Medications: Start Antibiotics Diagnostics: Check Labs, Repeat Labs in AM, Obtain Cultures Anticipated Discharge: Home GINA HILLMAN MD Aug 15, 2019 20:54
[2019-08-15 21:38] LABS: HEMATOCRIT 29.5 % (36.0-47.0); HEMOGLOBIN 9.4 g/dl (12.0-15.5); MEAN CORPUSCULAR HEMOGLOBIN 32.2 pg (27.0-33.0); MEAN CORPUSCULAR HGB CONC 31.9 g/dl (32.0-36.5); PLATELET COUNT, AUTOMATED 326 10^3/uL (150-450); RED BLOOD COUNT 2.92 10^6/uL (4.00-5.40); WHITE BLOOD COUNT 13.3 10^3/uL (4.0-10.0)
[2019-08-15] MEDS: NS 1,000 ML IV SCH (21:51)
[2019-08-15 22:00] VITALS: BP 113/55
[2019-08-15] MEDS: HEPARIN SOD (PORCINE) 5000 UNITS/ML VIAL SQ SCH (22:01)
[2019-08-16] MEDS: ACETAMINOPHEN TAB 650MG DOSE (2X325MG) PO PRN ×3 (01:48→10:38)
[2019-08-16] MEDS: PIPERACILLIN/TAZOBACTAM SOD 3.375 GM in D5W MINI-BAG PLUS 50 ML IV SCH ×4 (01:48→19:44)
[2019-08-16] MEDS: HEPARIN SOD (PORCINE) 5000 UNITS/ML VIAL SQ SCH ×3 (05:17→22:13)
[2019-08-16 06:00] VITALS: BP 128/57
[2019-08-16 07:36] LABS: HEMATOCRIT 29.4 % (36.0-47.0); HEMOGLOBIN 9.1 g/dl (12.0-15.5); MEAN CORPUSCULAR HEMOGLOBIN 31.5 pg (27.0-33.0); MEAN CORPUSCULAR VOLUME 101.7 fl (80.0-96.0); PLATELET COUNT, AUTOMATED 312 10^3/uL (150-450); RED BLOOD COUNT 2.89 10^6/uL (4.00-5.40); WHITE BLOOD COUNT 9.5 10^3/uL (4.0-10.0)
[2019-08-16 08:01] LABS: ALBUMIN 2.1 GM/DL (3.2-5.2); BILIRUBIN,TOTAL 0.7 MG/DL (0.2-1.0); CALCIUM LEVEL 8.2 MG/DL (8.8-10.2); CREATININE FOR GFR 1.94 MG/DL (0.55-1.30); GLOMERULAR FILTRATION RATE 26.6 (>39); MAGNESIUM LEVEL 1.6 MG/DL (1.8-2.4); POTASSIUM SERUM 4.1 MEQ/L (3.5-5.1); TOTAL PROTEIN 6.6 GM/DL (6.4-8.2)
[2019-08-16] MEDS: NS 1,000 ML IV SCH ×2 (08:38→17:00)
[2019-08-16] MEDS: PHENAZOPYRIDINE 100 MG TAB PO SCH ×3 (08:38→19:45)
[2019-08-16] MEDS: NYSTATIN OINTMENT 15 GM TOP SCH ×2 (08:39→19:47)
[2019-08-16] MEDS: HumaLOG INSULIN (NovoLOG) PER UNIT SC SCH ×4 (08:40→21:00)
[2019-08-16 10:00] VITALS: BP 120/57
--- NOTE | 2019-08-16 12:14 | IPNPDOC ---
Subjective Review oF Systems Chief Complaint The patient is a 78-year-old female admitted with a reason for visit of Urosepsis. Events since Last Encounter S: Feeling better, but still with int shaking chills. No lateralizing flank pain General: Reports: Chills, Malaise, Normal Appetite Constitutional: Reports: Fever, Chills, Sweats, Malaise Genitourinary: Denies: Dysuria, Frequency, Incontinence, Hematuria, Retention, Other Symptoms Objective Physical Examination General Exam: Alert, Cooperative, No Acute Distress, Mild Distress Eye Exam: PERRLA ENT EXAM: Atraumatic Neck Exam: Supple Chest Exam: Normal air movement Heart Exam: Positive: Rate Normal, Regular Rhythm, Normal S1, Normal S2; Negative: Murmurs, Rubs ABDOMEN EXAM: Normal bowel sounds, Soft Vital Signs/I&O Vital Signs Date Time Temp Pulse Resp B/P (MAP) Pulse Ox O2 Delivery O2 Flow Rate FiO2 08/16/19 11:18 101.4 08/16/19 10:00 76 18 120/57 (78) 96 Room Air I&O- Last 24 Hours up to 6 AM 08/16/19 06:00 Intake Total 1700 ml Output Total 0 ml Balance 1700 ml Laboratory Data Labs 24H Laboratory Tests 2 08/15/19 17:42: Anion Gap 7L, Glomerular Filtration Rate 28.7L, Lactic Acid Level 1.0, Calcium Level 8.4L, Total Bilirubin 0.8, Aspartate Amino Transf (AST/SGOT) 11, Alanine Aminotransferase (ALT/SGPT) 18, Alkaline Phosphatase 128H, Total Protein 6.8, Albumin 2.4L, Albumin/Globulin Ratio 0.55L 08/15/19 18:18: Bedside Glucose (Misc Panel) 207H 08/15/19 20:22: Bedside Glucose (Misc Panel) 268H 08/15/19 21:16: Nucleated Red Blood Cells % (auto) 0.0 08/16/19 06:57: Nucleated Red Blood Cells % (auto) 0.0, Anion Gap 5L, Glomerular Filtration Rate 26.6L, Lactic Acid Level 1.1, Calcium Level 8.2L, Magnesium Level 1.6L, Total Bilirubin 0.7, Aspartate Amino Transf (AST/SGOT) 12, Alanine Aminotransferase (ALT/SGPT) 14, Alkaline Phosphatase 100, Total Protein 6.6, Albumin 2.1L, Albumin/Globulin Ratio 0.47L 08/16/19 08:53: Urine Color NAVEEN, Urine Appearance CLOUDYH, Urine pH 5.0, Urine Specific [place] 1.015, Urine Protein 2+H, Urine Glucose (UA) NEGATIVE, Urine Ketones NEGATIVE, Urine Blood 2+H, Urine Nitrite POSITIVEH, Urine Bilirubin NEGATIVE, Urine Urobilinogen 2.0H, Urine Leukocyte Esterase 3+H, Urine WBC (Auto) TNTCH, Urine RBC (Auto) 47H, Urine Hyaline Casts (Auto) 0, Urine Bacteria (Auto) 2+H, Urine Squamous Epithelial Cells 3, Urine Amorphous Sediment SMALLH, Urine Mucus (Auto) SMALL, Urine Sperm (Auto) CBC/BMP Laboratory Tests 08/15/19 17:42 08/15/19 21:16 08/16/19 06:57 FSBS Laboratory Tests Test 08/15/19 18:18 08/15/19 20:22 Range/Units Bedside Glucose (Misc Panel) 207 268 83-110 MG/DL Microbiology Microbiology 08/16/19 Urine Culture, Received Pending 08/15/19 Blood Culture, Received Pending Assessment/Plan Date Seen The patient was seen on 08/16/19. Patient Summary 78 yo with mult co-morbidities with rigors and temps on office presentation for stent removal. with recent URI.. Nl lactate and WEBC down from 13 to 9, but still with temp spikes to 101 range. Pt still has her stent. Plan/VTE VTE Prophylaxis Ordered?: Yes VTE Exclusion Mechanical Proph: N/A:VTE Prophy Ordered Plan P: ABX IV pending cultures. Stent removal in the office when infection issue is clarified. Care of hospitalists appreciated. Following. MATHEW ROTH MD Aug 16, 2019 12:14
[2019-08-16 14:00] VITALS: BP 112/54
--- NOTE | 2019-08-16 15:03 | IPNPDOC ---
Text Note Date of Service The patient was seen on 08/16/19. NOTE SUBJECTIVE: Ms. David was admitted from her urologist's office with concern for pyelonephritis. She has persisted febrile. She reports having had fever and chills overnight. She currently denies dysuria. OBJECTIVE: See vital signs below--she had a MAXIMUM TEMPERATURE of 101.2 overnight Physical exam: General: The patient continues ill appearing. HENT: Neck is otherwise supple, no adenopathy or thyromegaly, oral mucosa is moist, patient complains of nasal drainage, which is noted to be clear. Cardiovascular: Regular rate and rhythm with a normal S1 and S2. Respiratory: Clear to auscultation, normal air movement. Abdomen: Soft, nontender, nondistended, moderate central obesity Extremities: No peripheral edema, pedal pulses are palpable. Neuro: Patient continues with mild tremors, especially to her right upper extremity that appears separate from her rigors ASSESSMENT/PLAN: 1. Pyelonephritis. Patient continues with IV hydration and empiric antibiotics in the form of Zosyn. Patient persists, febrile, but leukocytosis is resolved; white blood cell count has decreased from 13.3 - 9.5. Awaiting blood and urine culture results. 2. Nephrolithiasis. The patient has a left ureteral stent that was placed. She is to treat nephrolithiasis. She had a change out of her stent 2 weeks ago. This may be the etiology of her current pyelonephritis. 3. Wsy-zjzdpys-dhoztgrik diabetes mellitus. Fasting glucose is stable at 186 today. Patient has been restored to her metformin and basal bolus insulin. VS,Sohanbone, I+O VS, Fishbone, I+O Laboratory Tests 08/15/19 17:42 08/15/19 21:16 08/16/19 06:57 Vital Signs Date Time Temp Pulse Resp B/P (MAP) Pulse Ox O2 Delivery O2 Flow Rate FiO2 08/16/19 14:00 99.7 77 20 112/54 (73) 94 Room Air I&O- Last 24 Hours up to 6 AM 08/16/19 06:00 Intake Total 1700 ml Output Total 0 ml Balance 1700 ml GINA HILLMAN MD Aug 16, 2019 15:03
[2019-08-16 16:51] VITALS: BP 163/79
[2019-08-16] MEDS: ACETAMINOPHEN 500 MG TAB PO PRN (17:00)
[2019-08-16] MEDS ORDERED: NS 250 ML IV ONE (17:30)
[2019-08-16 18:00] VITALS: BP 107/42
[2019-08-16] MEDS: ASPIRIN 325 MG TAB PO SCH (19:45)
[2019-08-16] MEDS: metFORMIN (GLUCOPHAGE) 1000 MG TABLET PO SCH (19:45)
[2019-08-16] MEDS: PRAVASTATIN 20 MG TAB PO SCH (19:47)
[2019-08-16] MEDS: LATANOPROST 0.005% OPHTH SOLN 2.5 ML OU SCH (19:47)
[2019-08-16] MEDS: traZODone 100 MG TAB PO SCH (19:59)
[2019-08-16] MEDS: LISINOPRIL 40 MG TAB PO SCH (19:59)
[2019-08-16 22:00] VITALS: BP 107/50
[2019-08-17] MEDS: PIPERACILLIN/TAZOBACTAM SOD 3.375 GM in D5W MINI-BAG PLUS 50 ML IV SCH ×4 (01:14→20:08)
[2019-08-17] MEDS: NS 1,000 ML IV SCH ×2 (01:15→13:08)
[2019-08-17 02:00] VITALS: BP 106/55
[2019-08-17] MEDS: HEPARIN SOD (PORCINE) 5000 UNITS/ML VIAL SQ SCH ×3 (05:12→22:25)
[2019-08-17 06:00] VITALS: BP 125/55
[2019-08-17 06:13] LABS: CALCIUM LEVEL 7.5 MG/DL (8.8-10.2); CREATININE FOR GFR 1.92 MG/DL (0.55-1.30); MAGNESIUM LEVEL 1.5 MG/DL (1.8-2.4)
[2019-08-17] MEDS: ACETAMINOPHEN 500 MG TAB PO PRN ×2 (06:31→17:48)
[2019-08-17] MEDS: PHENAZOPYRIDINE 100 MG TAB PO SCH ×3 (09:19→20:08)
[2019-08-17] MEDS: metFORMIN (GLUCOPHAGE) 1000 MG TABLET PO SCH ×2 (09:19→20:08)
[2019-08-17] MEDS: HumaLOG INSULIN (NovoLOG) PER UNIT SC SCH ×4 (09:19→21:00)
[2019-08-17] MEDS: NYSTATIN OINTMENT 15 GM TOP SCH ×2 (09:21→20:08)
--- NOTE | 2019-08-17 11:52 | IPNPDOC ---
Subjective Review oF Systems Chief Complaint The patient is a 78-year-old female admitted with a reason for visit of Urosepsis. Events since Last Encounter Feeling better. No chills since last pm. Venancio po. General: Denies: ROS Unobtainable, Chills, Night Sweats, Fatigue, Malaise, Normal Appetite, Other Symptoms Constitutional: Denies: Fever, Chills, Sweats, Weakness, Malaise, Other Psych: Denies: Mood Normal, Anxiety, Depression, Memory Issues, Thoughts of Kamila f Harm, Anger, Thoughts of harming Other, Other Psych Objective Physical Examination General Exam: Alert, Cooperative, No Acute Distress, Mild Distress Eye Exam: PERRLA ENT EXAM: Atraumatic Neck Exam: Supple Chest Exam: Normal air movement Heart Exam: Positive: Rate Normal, Regular Rhythm, Normal S1, Normal S2; Negative: Murmurs, Rubs ABDOMEN EXAM: Normal bowel sounds, Soft Vital Signs/I&O Vital Signs Date Time Temp Pulse Resp B/P (MAP) Pulse Ox O2 Delivery O2 Flow Rate FiO2 08/17/19 10:00 98.4 08/17/19 06:00 78 16 125/55 (78) 96 Room Air I&O- Last 24 Hours up to 6 AM 08/17/19 06:00 Intake Total 3435 ml Balance 3435 ml Laboratory Data Labs 24H Laboratory Tests 2 08/16/19 21:15: Bedside Glucose (Misc Panel) 172H 08/17/19 05:32: Anion Gap 5L, Glomerular Filtration Rate 27.0L, Calcium Level 7.5L, Magnesium Level 1.5L CBC/BMP Laboratory Tests 08/17/19 05:32 FSBS Laboratory Tests Test 08/16/19 21:15 Range/Units Bedside Glucose (Misc Panel) 172 83-110 MG/DL Microbiology Microbiology 08/16/19 Urine Culture, Received Pending 08/15/19 Blood Culture - Preliminary, Resulted No growth after 24 hours . All specim... Assessment/Plan Date Seen The patient was seen on 08/17/19. Patient Summary Culture of urine pending; BC NG. Clinically improving from presumed pyelo Plan/VTE VTE Prophylaxis Ordered?: Yes VTE Exclusion Mechanical Proph: N/A:VTE Prophy Ordered Plan P: Awaiting cultures. If negative, should prob go home on broad spectrum abx til cysto/stent removal can be accomplished in 10-14 days MATHEW ROTH MD Aug 17, 2019 11:52
[2019-08-17 14:00] VITALS: BP 115/53
--- NOTE | 2019-08-17 14:45 | IPNPDOC ---
Text Note Date of Service The patient was seen on 08/17/19. NOTE SUBJECTIVE: Ms. David is admitted with acute pyelonephritis due to ongoing presence of left ureteral stent. She has had difficulty since its re-placement 2 weeks ago. She continues with fever and discomfort. She has an underlying history of nephrolithiasis. OBJECTIVE: Please see vital signs below--patient had a MAXIMUM TEMPERATURE of 100.2 overnight Physical exam: HENT: Neck is otherwise supple, no adenopathy or thyromegaly, oral mucosa is moist Cardiovascular: Regular rate and rhythm with a normal S1 and S2. Respiratory: Clear to auscultation, normal air movement. Abdomen: Soft, nontender, nondistended, moderate central obesity Extremities: No peripheral edema, pedal pulses are palpable. Neuro: Patient continues with mild tremors, especially to her right upper extremity that appears separate from her rigors, patient does not exhibit rigors currently Skin: Patient had had skin rash and irritation to her axilla and perineal area that resembled candidal dermatitis. It is responding to nystatin ointment. ASSESSMENT/PLAN: 1. Pyelonephritis. Patient continues with IV hydration and empiric antibiotics in the form of Zosyn. Patient persists febrile, but leukocytosis is resolved; white blood cell count has decreased from 13.3 - 9.5. Awaiting blood and urine culture results. She is receiving Pyridium for dysuria. 2. Nephrolithiasis. The patient has a left ureteral stent that was placed to treat nephrolithiasis. She had a change out of her stent 2 weeks ago. This may be the etiology of her current pyelonephritis. Anticipate removal of her stent when her pyelonephritis is resolved. 3. Dak-hghooyt-cfwderniw diabetes mellitus. Fasting glucose is stable at 145 today. Patient has been restored to her metformin and basal bolus insulin. 4. Hypomagnesemia. Serum magnesium was 1.5 today; this is being supplemented. VS,Fishbone, I+O VS, Fishbone, I+O Laboratory Tests 08/17/19 05:32 Vital Signs Date Time Temp Pulse Resp B/P (MAP) Pulse Ox O2 Delivery O2 Flow Rate FiO2 08/17/19 10:00 98.4 08/17/19 06:00 78 16 125/55 (78) 96 Room Air I&O- Last 24 Hours up to 6 AM0 08/17/19 06:00 Intake Total 3435 ml Balance 3435 ml GINA HILLMAN MD Aug 17, 2019 14:45
[2019-08-17] MEDS ORDERED: MAG SULF 1GM/100ML (MAG RUN) 1 GM in IV 1 EA IV ONE (15:00)
[2019-08-17 18:00] VITALS: BP 120/52
[2019-08-17] MEDS: ASPIRIN 325 MG TAB PO SCH (20:08)
[2019-08-17] MEDS: LISINOPRIL 40 MG TAB PO SCH (20:08)
[2019-08-17] MEDS: LATANOPROST 0.005% OPHTH SOLN 2.5 ML OU SCH (20:08)
[2019-08-17] MEDS: traZODone 100 MG TAB PO SCH (20:08)
[2019-08-17] MEDS: PRAVASTATIN 20 MG TAB PO SCH (20:08)
[2019-08-17 22:00] VITALS: BP 131/61
[2019-08-18] VITALS (7 sets, daily range): BP systolic 100–189; BP diastolic 61–88
[2019-08-18] MEDS: PIPERACILLIN/TAZOBACTAM SOD 3.375 GM in D5W MINI-BAG PLUS 50 ML IV SCH ×2 (01:40→08:25)
[2019-08-18] MEDS: NS 1,000 ML IV SCH ×3 (01:40→16:44)
[2019-08-18] MEDS: HEPARIN SOD (PORCINE) 5000 UNITS/ML VIAL SQ SCH ×3 (05:03→22:04)
[2019-08-18 06:43] LABS: HEMATOCRIT 30.6 % (36.0-47.0); HEMOGLOBIN 9.1 g/dl (12.0-15.5); MEAN CORPUSCULAR HEMOGLOBIN 31.2 pg (27.0-33.0); MEAN CORPUSCULAR HGB CONC 29.7 g/dl (32.0-36.5); MEAN CORPUSCULAR VOLUME 104.8 fl (80.0-96.0); PLATELET COUNT, AUTOMATED 290 10^3/uL (150-450); RED BLOOD COUNT 2.92 10^6/uL (4.00-5.40); WHITE BLOOD COUNT 6.4 10^3/uL (4.0-10.0)
[2019-08-18 07:00] LABS: CALCIUM LEVEL 7.8 MG/DL (8.8-10.2); CREATININE FOR GFR 2.09 MG/DL (0.55-1.30); GLOMERULAR FILTRATION RATE 24.4 (>39); MAGNESIUM LEVEL 1.7 MG/DL (1.8-2.4)
[2019-08-18] MEDS ORDERED: MAG SULF 1GM/100ML (MAG RUN) 1 GM in IV 1 EA IV ONE (08:00)
[2019-08-18] MEDS: metFORMIN (GLUCOPHAGE) 1000 MG TABLET PO SCH (08:25)
--- NOTE | 2019-08-18 10:13 | REP ---
RENAL ULTRASOUND: Real-time sonographic evaluation of the kidneys is performed. The kidneys are normal in size and echotexture, right kidney measuring 12.0 x 5.4 x 4.7 cm and left kidney 11.6 x 4.3 x 5.1 cm. There is no right hydronephrosis. There is mild to moderate left hydronephrosis which appears similar to prior CT of 06/24/2019. Left ureteral stent is noted with the proximal end in the upper pole collecting system and the distal end in the urinary bladder. There are bilateral ureteral jets in the urinary bladder with Doppler color evaluation. IMPRESSION: Mild to moderate left hydronephrosis appears similar to the prior study of 06/24/2019. Left ureteral stent appears to be in good position. Electronically Signed by Philippe Alvarado MD 08/19/2019 05:29 P
[2019-08-18] MEDS: HumaLOG INSULIN (NovoLOG) PER UNIT SC SCH ×4 (10:16→21:00)
[2019-08-18] MEDS: CEFDINIR 300 MG CAP (OMNICEF) PO SCH (10:50)
[2019-08-18] MEDS: NYSTATIN OINTMENT 15 GM TOP SCH ×2 (10:51→22:04)
[2019-08-18] MEDS: LINEZOLID 600MG TABLET (ZYVOX) PO SCH ×2 (11:30→22:04)
[2019-08-18] MEDS: PHENAZOPYRIDINE 100 MG TAB PO SCH ×3 (11:30→22:03)
[2019-08-18] MEDS: LACTOBACILLUS ACIDOPHILUS CAP (BACID) PO SCH ×2 (13:19→17:44)
--- NOTE | 2019-08-18 13:48 | IPNPDOC ---
Text Note Date of Service The patient was seen on 08/18/19. NOTE Subjective: Patient was seen and examined at the bedside. Patient reports that they're still experiencing some lower abdominal discomfort. Denies any chest pain, shortness breath, palpitations, nausea, or vomiting. Patient denies experiencing any burning or discomfort with urination. Has had some loose stools yesterday, has not had any bowel movements today. Objective: Vitals (See below) General: Lying in bed, no acute distress, comfortable, AAOx3 HEENT: NC, AT CVS: RRR, +S1S2 Lungs: Fair air entry b/l, -w/r/r Abdomen: Soft, ND, NT Extremities: - Edema, - Calf tenderness Assessment and plan: Pyelonephritis - Hemodynamically stable and afebrile - Leukocytosis has resolved - Urinalysis is consistent with infection; urine cultures 08/16: Enterobacter and enterococcus faecalis - Will DC Zosyn; Started Cefdinir and Linezolid - c/w Pyridium KIRK - possibly 2/2 pre-renal etiology, intra-renal etiology or post-renal etiology - Patient has been having a slow increase in creatinine this hospitalization - Will avoid nephrotoxic medications - Renal ultrasound is currently pending - Will restart IV fluid hydration - Urology on consultation Nephrolithiasis - s/p left ureteral stent that was placed to treat nephrolithiasis; has had stent change 2 weeks ago - Urology is following and anticipates removal of stent in the next 2 weeks NIDDM2 - c/w ISS and Metformin Hypomagnesemia - Will supplement DLP - c/w Pravastatin Mood disorder - c/w Trazodone DVT prophylaxis - c/w Heparin VS,Fishbone, I+O VS, Fishbone, I+O Laboratory Tests 08/18/19 06:14 Vital Signs Date Time Temp Pulse Resp B/P (MAP) Pulse Ox O2 Delivery O2 Flow Rate FiO2 08/18/19 10:00 99.6 78 16 100/61 (74) 97 Room Air I&O- Last 24 Hours up to 6 AM 08/18/19 06:00 Intake Total 3715 ml Output Total 0 ml Balance 3715 ml NOELLE LOCKHART MD Aug 18, 2019 13:48
--- NOTE | 2019-08-18 13:49 | IPNPDOC ---
Subjective Review oF Systems Chief Complaint The patient is a 78-year-old female admitted with a reason for visit of Urosepsis. Events since Last Encounter Patient reports feeling better. No further fevers or chills. General: Denies: ROS Unobtainable, Chills, Night Sweats, Fatigue, Malaise, Normal Appetite, Other Symptoms Constitutional: Denies: Fever, Chills, Sweats, Weakness, Malaise, Other Objective Physical Examination General Exam: Alert, Cooperative, No Acute Distress, Mild Distress Eye Exam: PERRLA ENT EXAM: Atraumatic Neck Exam: Supple Chest Exam: Normal air movement Heart Exam: Positive: Rate Normal, Regular Rhythm, Normal S1, Normal S2; Negative: Murmurs, Rubs ABDOMEN EXAM: Normal bowel sounds, Soft Vital Signs/I&O Vital Signs Date Time Temp Pulse Resp B/P (MAP) Pulse Ox O2 Delivery O2 Flow Rate FiO2 08/18/19 10:00 99.6 78 16 100/61 (74) 97 Room Air I&O- Last 24 Hours up to 6 AM 08/18/19 06:00 Intake Total 3715 ml Output Total 0 ml Balance 3715 ml Laboratory Data Labs 24H Laboratory Tests 2 08/17/19 16:40: Bedside Glucose (Misc Panel) 155H 08/17/19 20:43: Bedside Glucose (Misc Panel) 106 08/18/19 06:14: Nucleated Red Blood Cells % (auto) 0.0, Anion Gap 7L, Glomerular Filtration Rate 24.4L, Calcium Level 7.8L, Magnesium Level 1.7L 08/18/19 11:29: Bedside Glucose (Misc Panel) 196H CBC/BMP Laboratory Tests 08/18/19 06:14 FSBS Laboratory Tests Test 08/17/19 16:40 08/17/19 20:43 08/18/19 11:29 Range/Units Bedside Glucose (Misc Panel) 155 106 196 83-110 MG/DL Microbiology Microbiology 08/16/19 Urine Culture - Final, Complete Enterobacter Aerogenes Enterococcus Faecalis Yeast Like Organism 08/15/19 Blood Culture - Preliminary, Resulted No Growth after 48 hours. All Specime... Assessment/Plan Date Seen The patient was seen on 08/18/19. Patient Summary Impression: Urinary tract infection following stone extraction with residual indwelling stent. Of note, this appears to be multiple organisms with Enterobacter, enterococcus, and possibly yeast. Plan: Given the resistance patterns of these organisms, infectious disease input may be appropriate. We'll make an appointment for her to have her cystoscopy and stent removal in the office today in 7-14 days. She is agreeable to this plan. Plan/VTE VTE Prophylaxis Ordered?: Yes VTE Exclusion Mechanical Proph: N/A:VTE Prophy Ordered MATHEW ROTH MD Aug 18, 2019 13:49
[2019-08-18] MEDS ORDERED: amLODIPine 5 MG TAB PO ONE (16:00)
[2019-08-18] MEDS ORDERED: LORazepam 1 MG TAB PO STA (16:16)
[2019-08-18 18:23] LABS: CLOSTRIDIUM DIFFICILE PCR NEGATIVE (NEGATIVE)
[2019-08-18] MEDS: LATANOPROST 0.005% OPHTH SOLN 2.5 ML OU SCH (22:03)
[2019-08-18] MEDS: traZODone 100 MG TAB PO SCH (22:03)
[2019-08-18] MEDS: PRAVASTATIN 20 MG TAB PO SCH (22:03)
[2019-08-18] MEDS: ASPIRIN 325 MG TAB PO SCH (22:03)
[2019-08-19] MEDS: NS 1,000 ML IV SCH ×3 (01:30→20:08)
[2019-08-19 02:00] VITALS: BP 153/65
[2019-08-19 06:00] VITALS: BP 148/66
[2019-08-19] MEDS: HEPARIN SOD (PORCINE) 5000 UNITS/ML VIAL SQ SCH ×3 (06:17→21:17)
[2019-08-19] MEDS: HumaLOG INSULIN (NovoLOG) PER UNIT SC SCH ×4 (07:58→21:00)
[2019-08-19] MEDS: LACTOBACILLUS ACIDOPHILUS CAP (BACID) PO SCH ×3 (08:01→17:38)
[2019-08-19] MEDS: LINEZOLID 600MG TABLET (ZYVOX) PO SCH (08:01)
[2019-08-19] MEDS: PHENAZOPYRIDINE 100 MG TAB PO SCH ×3 (08:01→21:25)
[2019-08-19] MEDS: CEFDINIR 300 MG CAP (OMNICEF) PO SCH (08:01)
[2019-08-19] MEDS: NYSTATIN OINTMENT 15 GM TOP SCH ×2 (08:02→21:18)
[2019-08-19 10:00] VITALS: BP 148/60
[2019-08-19 10:03] LABS: HEMOGLOBIN 9.3 g/dl (12.0-15.5); MEAN CORPUSCULAR HEMOGLOBIN 32.5 pg (27.0-33.0); MEAN CORPUSCULAR VOLUME 104.9 fl (80.0-96.0); PLATELET COUNT, AUTOMATED 316 10^3/uL (150-450); RED BLOOD COUNT 2.86 10^6/uL (4.00-5.40)
[2019-08-19 10:21] LABS: CREATININE FOR GFR 1.8 MG/DL (0.55-1.30); POTASSIUM SERUM 4.2 MEQ/L (3.5-5.1)
[2019-08-19 14:00] VITALS: BP 140/77
--- NOTE | 2019-08-19 14:40 | IPNPDOC ---
Text Note Date of Service The patient was seen on 08/19/19. NOTE Subjective: Patient was seen and examined at the bedside. Denies any abdominal pain or back pain, denies any chest pain, shortness breath, palpitations, nausea, or vomiting. Patient denies experiencing any burning or discomfort with urination. Has had some loose stools yesterday, has not had any bowel movements today. Objective: Vitals (See below) General: Lying in bed, no acute distress, comfortable, AAOx3 HEENT: NC, AT, moist mucus membranes, anicteric eyes. CVS: RRR, +S1S2, systolic murmur, no rub or gallop. Lungs: Fair air entry b/l, -w/r/r Abdomen: Soft, ND, NT, normal bowel sounds. Extremities: No Edema, No Calf tenderness Assessment and plan: Complicated Pyelonephritis with left ureteral stent in place. Urinalysis is consistent with infection; urine cultures 08/16: Enterobacter and enterococcus faecalis Started Cefdinir and Linezolid, also on Pyridium will consult ID. KIRK - possibly 2/2 pre-renal etiology was having diarrhea on the back ground of chronic left sided obstruction. Has left hydronephrosis from April 2019 New renal US no change from may study Patient has been having a slow increase in creatinine this hospitalization Will avoid nephrotoxic medications Continue IV fluid hydration Nephrolithiasis s/p left ureteral stent that was placed to treat nephrolithiasis in April; No stone seen during cystoscopy on 08/01 however the ureter was very inflammed and bleeding easily to touch so new stent was again placed. Urology is following and anticipates removal of stent in the next 1-2 weeks NIDDM2 c/w ISS and Metformin Hypomagnesemia supplement DLP c/w Pravastatin Mood disorder c/w Trazodone DVT prophylaxis c/w Heparin VS,Fishbone, I+O VS, Fishbone, I+O Laboratory Tests 08/19/19 09:45 Vital Signs Date Time Temp Pulse Resp B/P (MAP) Pulse Ox O2 Delivery O2 Flow Rate FiO2 08/19/19 14:00 98.7 68 17 140/77 (98) 96 Room Air I&O- Last 24 Hours up to 6 AM 08/19/19 06:00 Intake Total 930 ml Output Total 100 ml Balance 830 ml FARHAT ROSE MD Aug 19, 2019 14:40
--- NOTE | 2019-08-19 16:25 | IPNPDOC ---
Subjective Review oF Systems Chief Complaint The patient is a 78-year-old female admitted with a reason for visit of Urosepsis. Events since Last Encounter Feels much better. No more rigors. General: Denies: ROS Unobtainable, Chills, Night Sweats, Fatigue, Malaise, Normal Appetite, Other Symptoms Constitutional: Denies: Fever, Chills, Sweats, Weakness, Malaise, Other Genitourinary: Denies: Dysuria, Frequency, Incontinence, Hematuria, Retention, Other Symptoms Objective Physical Examination General Exam: Alert, Cooperative, No Acute Distress, Mild Distress Eye Exam: PERRLA ENT EXAM: Atraumatic Neck Exam: Supple Chest Exam: Normal air movement Heart Exam: Positive: Rate Normal, Regular Rhythm, Normal S1, Normal S2; Negative: Murmurs, Rubs ABDOMEN EXAM: Normal bowel sounds, Soft Vital Signs/I&O Vital Signs Date Time Temp Pulse Resp B/P (MAP) Pulse Ox O2 Delivery O2 Flow Rate FiO2 08/19/19 14:00 98.7 68 17 140/77 (98) 96 Room Air I&O- Last 24 Hours up to 6 AM 08/19/19 05:59 Intake Total 1550 ml Output Total 100 ml Balance 1450 ml Laboratory Data Labs 24H Laboratory Tests 2 08/18/19 16:38: Clostridium difficile [id number] PRESUMPTIVE NEGATIVE, Clostridium difficile Toxin (PCR) NEGATIVE 08/18/19 17:04: Bedside Glucose (Misc Panel) 157H 08/18/19 20:28: Bedside Glucose (Misc Panel) 132H 08/19/19 09:45: Nucleated Red Blood Cells % (auto) 0.0, Anion Gap 6L, Glomerular Filtration Rate 29.0L, Calcium Level 8.0L 08/19/19 11:50: Bedside Glucose (Misc Panel) 253H CBC/BMP Laboratory Tests 08/19/19 09:45 FSBS Laboratory Tests Test 08/18/19 17:04 08/18/19 20:28 08/19/19 11:50 Range/Units Bedside Glucose (Misc Panel) 157 132 253 83-110 MG/DL Microbiology Microbiology 08/16/19 Urine Culture - Final, Complete Enterobacter Aerogenes Enterococcus Faecalis Yeast Like Organism 08/15/19 Blood Culture - Preliminary, Resulted No Growth after 72 hours. All specime... Assessment/Plan Date Seen The patient was seen on 08/19/19. Patient Summary A: Steady improvement Plan/VTE VTE Prophylaxis Ordered?: Yes VTE Exclusion Mechanical Proph: N/A:VTE Prophy Ordered Plan Plan: Home soon with ID recs. Cysto/stent removal 1-2 weeks MATHEW ROTH MD Aug 19, 2019 16:25
[2019-08-19] MEDS ORDERED: FLUCONAZOLE 100 MG TAB PO ONE (17:00)
--- NOTE | 2019-08-19 17:53 | CR ---
DATE OF CONSULTATION: 08/19/2019 CONSULTATION REPORT FOR: Dr. Shreya Jimenez REASON FOR CONSULTATION: Complicated urinary tract infection/pyelonephritis. ATTENDING PHYSICIAN: Dr. Davida Barclay HISTORY OF PRESENT ILLNESS: Ms. David is a 78-year-old female who presented to [facility] with nephrolithiasis causing left hydronephrosis. The patient subsequently underwent ureteral stent placement for relief of her hydronephrosis. On followup visit with her urologist, the stone had passed and she did not require lithotripsy. The patient had presented for stent removal and was found to be febrile and there was concern for a possible urinary tract infection and pyelonephritis. The patient had noted at that time she had some chills, although she did not take her temperature. She did notice some nausea and vomiting which had occurred a few days after her stent placement. The patient denied any dysuria or hematuria at the time. On admittance to [facility], she was started on IV antibiotics and has received Zosyn. She received a urinary culture which was positive for Enterobacter aerogenes, Enterococcus faecalis and some yeast. The patient was subsequently started on oral therapy including Zyvox 600 mg twice a day as well as Omnicef 300 mg daily. The patient states that throughout her hospital course her symptoms have improved and she no longer has any fevers or chills. She states that her nausea and vomiting has subsided as well. The patient has been followed by urology who is planning to repeat the cystoscopy and stent removal in approximately 1-2 weeks. PAST MEDICAL HISTORY: 1. Coronary artery disease. 2. Sph-xjqdiqh-kpboioalr diabetes mellitus. 3. Chronic pain. 4. Hypertension. 5. Osteoarthritis. 6. Dyslipidemia. 7. Chronic kidney disease, stage III. PAST SURGICAL HISTORY: 1. Tubal ligation. 2. Bladder suspension with mesh. 3. Arthroscopic arthroscopy of the shoulder. 4. Cataract surgery. 5. Partial hysterectomy and exploratory laparotomy. 6. Coronary artery bypass surgery times three. 7. Ureteral stent placement. SOCIAL HISTORY: The patient admits to being a former smoker, however, has quit many years ago. She denies any current alcohol use. She denies any IV drug use. FAMILY HISTORY: The patient states that to her knowledge none of her family members have a history of kidney stones or diabetes. REVIEW OF SYSTEMS: CONSTITUTIONAL: The patient denies any fevers, chills, unintentional weight loss or weight gain. She denies any night sweats. HEENT: The patient denies any headaches. She denies any sore throat. She denies any changes in her vision. She denies any hearing loss. CARDIOVASCULAR: The patient denies any chest pain, palpitations, or feelings of heart racing. RESPIRATORY: The patient denies any shortness of breath. She denies any coughing or wheezing. GASTROINTESTINAL: The patient denies any nausea, vomiting, diarrhea or constipation. GENITOURINARY: The patient denies any dysuria or hematuria. She denies any increased frequency or urgency. SKIN: The patient admits to rashes in her armpits bilaterally as well as in her inguinal folds. MUSCULOSKELETAL: The patient admits to chronic pain particularly in her shoulder on the left. NEUROLOGICAL: The patient denies any changes in her gait. She denies any changes in her speech. PSYCHIATRIC: The patient denies any depression or anxiety. ENDOCRINE: The patient admits to a history of diabetes. She denies any heat intolerance or cold intolerance. HEMATOLOGIC: The patient denies any history of deep vein thrombosis. She any history of easy bruising or bleeding. PHYSICAL EXAMINATION: VITAL SIGNS: Temperature 98.7, pulse 68, respiratory rate 17, blood pressure 140/77, pulse oximetry 96% on room air. GENERAL: The patient is awake, alert, and oriented. She does not appear in any acute distress. She is sitting comfortably in her chair accompanied by her family. HEENT: Normocephalic, atraumatic. Eyes nonicteric. Trachea is midline. There is no jugular venous distention (JVD). There is no palpable cervical, clavicular or axillary lymphadenopathy. CARDIOVASCULAR: There is a 2/6 systolic ejection murmur present. There is a normal S1, S2. Regular rate and rhythm. RESPIRATORY: Clear vesicular breath sounds bilaterally with good respiratory effort. There are no wheezes, rhonchi, or rales. There is symmetric chest expansion. There is no prolonged expiratory phase. There is no clubbing of the nail beds. ABDOMEN: The patient's abdomen is soft. It is nondistended, nontender to palpation in all four quadrants. She is obese. There is no rebound tenderness or guarding. EXTREMITIES: There is 2 mm bilateral pitting edema. Pulses are full and equal in bilateral upper and lower extremities. SKIN: The patient has intertrigo present in her bilateral axillary folds as well as under her inner inguinal folds as well. NEUROLOGICAL: No focal neurological deficits. PSYCHIATRY: Mood and affect appear appropriate. LABORATORY DATA: Hematology: White blood cells 5.0, hemoglobin 9.3, hematocrit 30.0, platelet count 316. Chemistry: Sodium 145, potassium 4.2, chloride 115, carbon dioxide 24, BUN 17, creatinine 1.8, fasting glucose 233. Calcium 8.0. Urine culture positive for Enterobacter aerogenes, Enterococcus faecalis, and yeast-like organism. IMAGING STUDIES: Renal ultrasound completed on 08/18/2019 demonstrating mild to moderate left hydronephrosis that appears similar to her previous studies from 06/24/2019. There is a left ureteral stent that was present in good position. MEDICATIONS: - amoxicillin 500 mg twice a day - Bacid one daily - Omnicef 300 mg daily - Nystatin twice a day topical - fluconazole 200 mg once ASSESSMENT AND PLAN: 1. Complicated urinary tract infection/pyelonephritis. The patient has pyelonephritis with culture positive for Enterobacter aerogenes, Enterococcus faecalis, and a yeast-like organism. The patient has received Zosyn IV. She was changed to Zyvox and Omnicef. Susceptibilities have been performed. Recommend the patient stop Zyvox and transition to amoxicillin renally dosed to 500 mg twice a day. We will continue Omnicef. In terms of duration of therapy, the patient will need to continue this treatment for at least 10 days. However, given that her stent is still in place and likely infected, she will need to continue treatment until after her stent is removed for at least another seven days after stent removal. 2. Candidal intertrigo. The patient has intertrigo in her axillary folds as well as her inguinal folds. She does have Nystatin ordered. We will add fluconazole 200 mg once today and a dose of fluconazole 100 mg tomorrow. MTDD
[2019-08-19 18:00] VITALS: BP 142/65
[2019-08-19] MEDS: ASPIRIN 325 MG TAB PO SCH (21:17)
[2019-08-19] MEDS: traZODone 100 MG TAB PO SCH (21:17)
[2019-08-19] MEDS: AMOXICILLIN 500 MG CAP PO SCH (21:17)
[2019-08-19] MEDS: PRAVASTATIN 20 MG TAB PO SCH (21:17)
[2019-08-19] MEDS: LATANOPROST 0.005% OPHTH SOLN 2.5 ML OU SCH (21:18)
[2019-08-19 22:00] VITALS: BP 182/86
[2019-08-20 02:00] VITALS: BP 152/67
[2019-08-20] MEDS: NS 1,000 ML IV SCH (05:13)
[2019-08-20] MEDS: HEPARIN SOD (PORCINE) 5000 UNITS/ML VIAL SQ SCH (05:16)
[2019-08-20 06:00] VITALS: BP 166/58
--- NOTE | 2019-08-20 07:54 | IPNPDOC ---
Subjective Review oF Systems Chief Complaint The patient is a 78-year-old female admitted with a reason for visit of Urosepsis. Events since Last Encounter "I feel normal" General: Denies: ROS Unobtainable, Chills, Night Sweats, Fatigue, Malaise, Normal Appetite, Other Symptoms Constitutional: Denies: Fever, Chills, Sweats, Weakness, Malaise, Other Objective Physical Examination General Exam: Alert, Cooperative, No Acute Distress, Mild Distress Eye Exam: PERRLA ENT EXAM: Atraumatic Neck Exam: Supple Chest Exam: Normal air movement Heart Exam: Positive: Rate Normal, Regular Rhythm, Normal S1, Normal S2; Negative: Murmurs, Rubs ABDOMEN EXAM: Normal bowel sounds, Soft Vital Signs/I&O Vital Signs Date Time Temp Pulse Resp B/P (MAP) Pulse Ox O2 Delivery O2 Flow Rate FiO2 08/19/19 22:00 97.3 70 19 182/86 (118) 96 Room Air I&O- Last 24 Hours up to 6 AM 08/20/19 06:00 Intake Total 3420 ml Output Total 0 ml Balance 3420 ml Laboratory Data Labs 24H Laboratory Tests 2 08/19/19 09:45: Nucleated Red Blood Cells % (auto) 0.0, Anion Gap 6L, Glomerular Filtration Rate 29.0L, Calcium Level 8.0L 08/19/19 11:50: Bedside Glucose (Misc Panel) 253H 08/19/19 16:59: Bedside Glucose (Misc Panel) 142H 08/19/19 20:53: Bedside Glucose (Misc Panel) 164H CBC/BMP Laboratory Tests 08/19/19 09:45 FSBS Laboratory Tests Test 08/19/19 11:50 08/19/19 16:59 08/19/19 20:53 Range/Units Bedside Glucose (Misc Panel) 253 142 164 83-110 MG/DL Microbiology Microbiology 08/16/19 Urine Culture - Final, Complete Enterobacter Aerogenes Enterococcus Faecalis Yeast Like Organism 08/15/19 Blood Culture - Preliminary, Resulted No Growth after 72 hours. All specime... Assessment/Plan Date Seen The patient was seen on 08/20/19. Patient Summary Impression: Complicated UTI, following ureteroscopy and stent placement. Improving. Input from infectious disease consultants appreciated Plan/VTE VTE Prophylaxis Ordered?: Yes VTE Exclusion Mechanical Proph: N/A:VTE Prophy Ordered Plan Plan: Home on Omnicef. Office cystoscopy and stent removal next week. The pa dianna is agreeable to this plan. Her questions are answered. MATHEW ROTH MD Aug 20, 2019 07:54
[2019-08-20] MEDS: LACTOBACILLUS ACIDOPHILUS CAP (BACID) PO SCH ×2 (09:07→12:39)
[2019-08-20] MEDS: HumaLOG INSULIN (NovoLOG) PER UNIT SC SCH ×2 (09:07→12:40)
[2019-08-20] MEDS: AMOXICILLIN 500 MG CAP PO SCH (09:15)
[2019-08-20] MEDS: CEFDINIR 300 MG CAP (OMNICEF) PO SCH (09:15)
[2019-08-20] MEDS: NYSTATIN OINTMENT 15 GM TOP SCH (09:19)
[2019-08-20 10:00] VITALS: BP 167/65
[2019-08-20] MEDS: PHENAZOPYRIDINE 100 MG TAB PO SCH (10:26)
[2019-08-20] MEDS ORDERED: CEFD300CAP PO (11:19)
[2019-08-20] MEDS ORDERED: AMLO10TA5 PO (11:19)
[2019-08-20] MEDS ORDERED: LEVE1INJ5 SC (11:19)
[2019-08-20] MEDS ORDERED: AMOX500C PO (11:19)
[2019-08-20] MEDS ORDERED: LASI40TA9 PO (11:23)
[2019-08-20] MEDS ORDERED: RISATAB3 PO (11:23)
[2019-08-20] MEDS ORDERED: FLUCONAZOLE 100 MG TAB PO ONE (12:00)
--- NOTE | 2019-08-21 15:00 | DS.PDOC ---
Discharge Summary General Date of Admission Aug 15, 2019 at 16:19 Date of Discharge 08/20/19 Discharge Summary PROCEDURES PERFORMED DURING STAY: [None]. DISCHARGE DIAGNOSES: Complicated pyelonephritis with left ureteral stent in place KIRK Chronic obstruction with Chronic Left hydronephrosis Nephrolithiasis with h/o proximal ureteric stone in April 2019, left ureteral stent placed then and changed on 08/01 Intertriginous candidiasis Diabetes Hypertension Mood disorder Hyperlipidemia COMPLICATIONS/CHIEF COMPLAINT: Urosepsis. HISTORY OF PRESENT ILLNESS: See History and physical HOSPITAL COURSE: This is a 78-year-old female with a history of nephrolithiasis. This involved primarily her left kidney and her left ureter. The patient underwent placement of a ureteral stent in April 2019. Patient reports that the stent was removed and replaced 2 weeks ago. There are subsequent plans for stent removal today. I report. The patient has passed the stone and does not require lithotripsy. In any case, when the patient presented for stent removal. She was noted to be quite febrile. Concern was raised for infection and she was sent to the hospital for admission. She was admitted for complicated Pyelonephritis with stent in place and KIRK Complicated Pyelonephritis with left ureteral stent in place. Urinalysis is consistent with infection; urine cultures 08/16: Enterobacter and enterococcus faecalis continue cefdinir and amoxicillin as per GFR till stent is removed. Appreciate ID input. KIRK possibly 2/2 pre-renal etiology was having diarrhea on the back ground of chronic left sided obstruction. Has left hydronephrosis from April 2019 New renal US no change from may study Patient has been having a slow increase in creatinine this hospitalization Will avoid nephrotoxic medications Continue IV fluid hydration Intertriginous candidiasis received 2 doses of fluconazole. Nephrolithiasis s/p left ureteral stent that was placed to treat nephrolithiasis in April; No stone seen during cystoscopy on 08/01 however the ureter was very inflamed and bleeding easily to touch so new stent was again placed. Urology is following and anticipates removal of stent in the next 1-2 weeks NIDDM2 continue Levemir dose reduced, Sugars running low in the hospital Metformin stopped due to KIRK may be resumed after KIRK resolves fully. Hypertension lisinopril stopped due to KIRK started on amlodipine till KIRK resolved. Once resolved can resume Lisinopril at the discretion of the PMD Hypomagnesemia supplement DLP c/w Pravastatin Mood disorder c/w Trazodone DISCHARGE MEDICATIONS: Please see below. ALLERGIES: Please see below. PHYSICAL EXAMINATION ON DISCHARGE: VITAL SIGNS: Please see below. General: Lying in bed, no acute distress, comfortable, AAOx3 HEENT: NC, AT, moist mucus membranes, anicteric eyes. Neck: supple, no thyromegaly, no JVD CVS: RRR, +S1S2, systolic murmur, no rub or gallop. Lungs: Fair air entry b/l, No ronchi, wheezing or crackles. Abdomen: Soft, ND, NT, normal bowel sounds. Extremities: No Edema, No Calf tenderness LABORATORY DATA: Please see below. ACTIVITY: [As tolerated]. DIET: Carb consistent DISPOSITION: 01 Home, Self-Care. DISCHARGE INSTRUCTIONS: PMD in 1 week Follow up with Urology in 1 week for cystoscopy and stent removal DISCHARGE CONDITION: [Stable]. TIME SPENT ON DISCHARGE: 35 minutes. Vital Signs/I&Os Vital Signs Date Time Temp Pulse Resp B/P (MAP) Pulse Ox O2 Delivery O2 Flow Rate FiO2 08/20/19 10:00 98.5 67 17 167/65 (99) 95 Room Air I&O- Last 24 Hours up to 6 AM 08/21/19 06:00 Intake Total 240 ml Balance 240 ml Laboratory Data CBC/BMP Item Value Date Time White Blood Count 5.0 10^3/uL 08/19/19 0945 Red Blood Count 2.86 10^6/uL L 08/19/1945 Hemoglobin 9.3 g/dl L 08/19/1945 Hematocrit 30.0 % L 08/19/1945 Mean Corpuscular Volume 104.9 fl H 08/19/1945 Mean Corpuscular Hemoglobin 32.5 pg 08/19/1945 Mean Corpuscular Hemoglobin Concent 31.0 g/dl L 08/19/1945 Red Cell Distribution Width 15.4 % H 08/19/19944 Platelet Count 316 10^3/uL 08/19/19 0945 Nucleated Red Blood Cells % (auto) 0.0 % 08/19/19944 Sodium Level 145 MEQ/L 08/19/1945 Potassium Level 4.2 MEQ/L 08/19/1945 Chloride Level 115 MEQ/L H 08/19/19944 Carbon Dioxide Level 24 MEQ/L 10/22/19 0945 Anion Gap 6 MEQ/L L 08/19/19 0945 Blood Urea Nitrogen 17 MG/DL 08/19/19 0945 Creatinine 1.80 MG/DL H 08/19/19 0945 Glomerular Filtration Rate 29.0 L 08/19/19 0945 Fasting Glucose 233 MG/DL H 08/19/19 0945 Calcium Level 8.0 MG/DL L 08/19/19 0945 Microbiology Microbiology 08/16/19 Urine Culture - Final, Complete Enterobacter Aerogenes Enterococcus Faecalis Yeast Like Organism 08/15/19 Blood Culture - Final, Complete NO GROWTH AFTER 5 DAYS Discharge Medications Scheduled Amlodipine Besylate (Amlodipine Besylate) 10 Mg Tablet, 10 MG PO QHS Amoxicillin (Amoxicillin) 500 Mg Capsule, 500 MG PO BID Aspirin (Aspirin) 325 Mg Tablet, 325 MG PO QHS, (Reported) Cefdinir (Cefdinir) 300 Mg Capsule, 300 MG PO DAILY Furosemide (Lasix) 40 Mg Tablet, 1 TAB PO ASDIRECTED take every other day starting tomorrow for 3 days Insulin Detemir (Levemir Flextouch) 100 Unit/1 Ml Insuln.pen, 18 UNIT SC QHS L.acidoph/L.bulg/B.bif/S.therm (Gissel-Bid Caplet) 1 Each Tablet, 1 EA PO WM Pravastatin Sodium (Pravastatin Sodium) 40 Mg Tablet, 40 MG PO QHS, (Reported) Travoprost (Travatan Z) 0.004% 2.5ML Drops, 1 DROP OU QHS, (Reported) Trazodone HCl (Trazodone HCl) 100 Mg Tablet, 100 MG PO QHS, (Reported) Scheduled PRN Acetaminophen (Acetaminophen) 500 Mg Tablet, 1,000 MG PO Q6H PRN for BACK PAIN, (Reported) Allergies Coded Allergies: Sulfa (Sulfonamide Antibiotics) (Verified Allergy, Intermediate, HIVES, 07/09/19) Hives latex (Verified Allergy, Intermediate, hives, 07/09/19) codeine (Verified Adverse Reaction, Mild, GI UPSET, 07/09/19) GI Upset FARHAT ROSE MD Aug 21, 2019 15:00
== END 2019-08-20 13:14 | disposition home or self-care (01) | DRG 699 ==
LOC: M MSPAV 16:19
PROVIDERS: ADMIT General Practice; ATTEND Internal Medicine Nephrology
DX: T83.592A Infection and inflammatory reaction due to indwelling ureteral stent, initial encounter (principal); N17.9 Acute kidney failure, unspecified; B37.2 Candidiasis of skin and nail; E78.5 Hyperlipidemia, unspecified; F39 Unspecified mood [affective] disorder; I10 Essential (primary) hypertension; E11.9 Type 2 diabetes mellitus without complications; E83.42 Hypomagnesemia; Z79.899 Other long term (current) drug therapy; Z79.82 Long term (current) use of aspirin; Z88.2 Allergy status to sulfonamides; Z91.040 Latex allergy status; Z88.5 Allergy status to narcotic agent; Z87.442 Personal history of urinary calculi; I25.10 Atherosclerotic heart disease of native coronary artery without angina pectoris; G89.29 Other chronic pain; M19.90 Unspecified osteoarthritis, unspecified site; Z87.891 Personal history of nicotine dependence; Y84.6 Urinary catheterization as the cause of abnormal reaction of the patient, or of later complication, without mention of misadventure at the time of the procedure

== ENCOUNTER → 2019-09-16 | Outpatient (CLI) | payer MEDICARE ==
[~2019-09-16] MED LIST changes: +AMLO10TA5 PO; +AMOX500C PO; +CEFD300CAP PO; +LASI40TA9 PO; +RISATAB3 PO
[2019-09-16 13:32] LABS: BASO # 0.1 10^3/uL (0.0-0.2); EOS # 0.6 10^3/uL (0.0-0.5); EOS % 7.5 % (0.0-3.0); HEMATOCRIT 38.1 % (36.0-47.0); HEMOGLOBIN 11.9 g/dl (12.0-15.5); LYMPH # 1.7 10^3/uL (1.5-5.0); LYMPH % 22.6 % (24.0-44.0); MEAN CORPUSCULAR HEMOGLOBIN 32.3 pg (27.0-33.0); MEAN CORPUSCULAR HGB CONC 31.2 g/dl (32.0-36.5); MEAN CORPUSCULAR VOLUME 103.5 fl (80.0-96.0); MONO # 0.6 10^3/uL (0.0-0.8); MONO % 8.2 % (0.0-5.0); NEUTROPHILS # 4.4 10^3/uL (1.5-8.5); NEUTROPHILS % 60.2 % (36.0-66.0); PLATELET COUNT, AUTOMATED 310 10^3/uL (150-450); RED BLOOD COUNT 3.68 10^6/uL (4.00-5.40); WHITE BLOOD COUNT 7.4 10^3/uL (4.0-10.0)
[2019-09-16 13:59] LABS: ALBUMIN 3.3 GM/DL (3.2-5.2); BILIRUBIN,TOTAL 0.3 MG/DL (0.2-1.0); CALCIUM LEVEL 9.5 MG/DL (8.8-10.2); CREATININE FOR GFR 1.71 MG/DL (0.55-1.30); GLOMERULAR FILTRATION RATE 30.8 (>39); POTASSIUM SERUM 5.3 MEQ/L (3.5-5.1); TOTAL PROTEIN 7.6 GM/DL (6.4-8.2)
== END ==
LOC: M LRY 11:12
PROVIDERS: ATTEND Internal Medicine Cardiovascular Disease
DX: I12.9 Hypertensive chronic kidney disease with stage 1 through stage 4 chronic kidney disease, or unspecified chronic kidney disease (principal); N18.3 Chronic kidney disease, stage 3 (moderate); E11.9 Type 2 diabetes mellitus without complications

== ENCOUNTER → 2019-10-06 | Outpatient (CLI) | payer MEDICARE ==
[~2019-10-06] MED LIST changes: +ASPI81TA26 PO; +BACITAB PO; +DOXA1TAB42 PO; +FURO40TA2 PO; +INSUDET SC; +METH-855 PO; +NYST10006 TOP
--- NOTE | 2019-10-06 14:18 | REP ---
10 views thorax / ribs and three views thoracic spine: 10/06/2019. Indication: Thoracic pain. Comparison: 06/23/2019. Findings: The patient is status post median sternotomy. Multiple chronic left-sided rib deformities are redemonstrated. A small left pleural effusion is noted. Mild cardiomegaly is again noted. No acute rib fractures are detected. No acute fracture, subluxation or dislocation of the thoracic spine is detected. Diffuse osteopenia is noted. Impression: No acute fracture. Multiple chronic left rib deformities/fractures. Tiny left pleural effusion. Electronically Signed by Malik Davila DO 10/06/2019 02:10 P
== END ==
LOC: M LRY 12:49
PROVIDERS: ATTEND Nurse Practitioner Adult Health
DX: M54.6 Pain in thoracic spine (principal); S23.41XS Sprain of ribs, sequela; X58.XXXS Exposure to other specified factors, sequela

== ENCOUNTER 2019-10-09 09:51 | Inpatient (IN) | payer MEDICARE ==
[~2019-10-09] VITALS: Ht 152.4 cm; Wt 88.6 kg
[~2019-10-09 09:51] MED LIST changes: -ASPI81TA26 PO; -BACITAB PO; -DOXA1TAB42 PO; -FURO40TA2 PO; -INSUDET SC; -METH-855 PO; -NYST10006 TOP
[2019-10-09] MEDS ORDERED: METH-855 PO (10:13)
[2019-10-09] MEDS ORDERED: DOXA1TAB42 PO (10:13)
[2019-10-09] MEDS ORDERED: NORCO, ANEXSIA 5/325MG TABLET (HYDROcodone/ACETAMINOPHEN) PO ONE (10:15)
[2019-10-09] MEDS ORDERED: ONDANSETRON 4 MG ORAL DISINTEGRATING TAB (Q0162 PER 1MG) PO ONE (10:15)
--- NOTE | 2019-10-09 11:22 | REP ---
CT CHEST WITHOUT CONTRAST: HISTORY: Trauma. No comparison chest CT study. Comparison chest x-ray October 06, 2019. CT FINDINGS: Prior sternotomy wires are noted. Mildly prominent heart is seen. No mediastinal hematoma is appreciated. There is no evidence of pleural effusion or pneumothorax. Scattered areas of subpleural interstitial pulmonary fibrosis are seen in the upper lobes and lower lobes bilaterally. There is no evidence of acute infiltrate or very contusion. Bone window settings show multiple old left and right anterior and posterior rib fractures. There is an acute appearing fracture of the posterior right 10th rib. This should be correlated with area of pain and tenderness. No other definitely acute rib fractures are seen. There is a wedge compression fracture deformity at T5 with approximately 50% loss of vertebral body height at the T5 level and collapse of the superior endplate. There appears to be some healing sclerosis. There is mild retropulsion, 3 mm along the posterior cortex of the T5 vertebral body. Thoracic vertebral body heights are otherwise preserved. This deformity is new when compared with the June 23, 2019 prior chest x-ray. There is no evidence of posterior element involvement. No other vertebral fracture is appreciated. IMPRESSION: 1. Prior sternotomy. Evidence of COPD with scattered areas of interstitial fibrosis. 2. Multiple bilateral old rib fractures. 3. Possible acute nondisplaced right posterior 10th rib fracture. 4. Recent wedge compression fracture deformity T5 vertebral body with 50% loss of vertebral body heights, 3 mm retropulsion, but without evidence of posterior element involvement. Electronically Signed by Branden Gasca MD 10/09/2019 01:08 P
[2019-10-09] MEDS ORDERED: ONDANSETRON 4MG/2ML VIAL (J2405) IV ONE (11:30)
[2019-10-09] MEDS ORDERED: MORPHINE 2 MG/ML 1ML VIAL (J2270) IV PRN ×2 (11:30→14:15)
--- NOTE | 2019-10-09 11:44 | REP ---
CT thoracolumbar spine: 10/09/2019. Indication: Thoracolumbar spine trauma. Comparison: 12/03/2018. Technique: Unenhanced axial CT images of the thoracolumbar spine were performed with sagittal and coronal reconstructions provided. Findings: There is a recent compression deformity of T5 with approximately 60% loss of craniocaudal height centrally and minimal retropulsion of the posterior cortex into the spinal canal. No additional acute fractures are present. No additional compression fractures are present. There is no evidence of hemorrhage or additional acute post traumatic findings within the spinal canal. No areas of severe spinal canal narrowing are detected. Extensive atherosclerotic disease is noted. Impression: Recent T5 predominantly central compression deformity as described without hemorrhage within the spinal canal or significant spinal canal narrowing. No acute pathology of the lumbar spine. Extensive atherosclerotic disease. Electronically Signed by Malik Davila DO 10/09/2019 11:36 A
[2019-10-09 11:56] LABS: BASO % 0.4 % (0.0-1.0); EOS # 0.3 10^3/uL (0.0-0.5); EOS % 3.1 % (0.0-3.0); HEMATOCRIT 35.8 % (36.0-47.0); HEMOGLOBIN 11.5 g/dl (12.0-15.5); LYMPH % 10.8 % (24.0-44.0); MEAN CORPUSCULAR HEMOGLOBIN 32.3 pg (27.0-33.0); MEAN CORPUSCULAR HGB CONC 32.1 g/dl (32.0-36.5); MEAN CORPUSCULAR VOLUME 100.6 fl (80.0-96.0); MONO # 0.7 10^3/uL (0.0-0.8); MONO % 7.4 % (0.0-5.0); NEUTROPHILS # 6.9 10^3/uL (1.5-8.5); NEUTROPHILS % 77.5 % (36.0-66.0); PLATELET COUNT, AUTOMATED 302 10^3/uL (150-450); RED BLOOD COUNT 3.56 10^6/uL (4.00-5.40)
[2019-10-09 12:07] LABS: INR 1.11
[2019-10-09] MEDS ORDERED: FURO40TA2 PO (12:21)
[2019-10-09] MEDS ORDERED: ASPI81TA26 PO (12:21)
[2019-10-09] MEDS ORDERED: BACITAB PO (12:21)
[2019-10-09] MEDS ORDERED: INSUDET SC (12:21)
[2019-10-09 12:22] LABS: ALBUMIN 3.3 GM/DL (3.2-5.2); BILIRUBIN,TOTAL 0.6 MG/DL (0.2-1.0); CALCIUM LEVEL 9.3 MG/DL (8.8-10.2); CREATININE FOR GFR 1.57 MG/DL (0.55-1.30); POTASSIUM SERUM 4.3 MEQ/L (3.5-5.1); TOTAL PROTEIN 7.9 GM/DL (6.4-8.2)
[2019-10-09] MEDS ORDERED: ONDANSETRON 4 MG TAB (S0181) PO PRN (14:15)
[2019-10-09] MEDS ORDERED: ACETAMINOPHEN TAB 650MG DOSE (2X325MG) PO PRN (14:15)
[2019-10-09] MEDS ORDERED: oxyCODONE 5MG TAB PO PRN ×2 (14:15→20:15)
--- NOTE | 2019-10-09 14:15 | HPEPDOC ---
General Date of Admission Oct 09, 2019 at 14:02 Date of Service: Oct 09, 2019 Attending Physician: HOUSTON ALFARO MD Chief Complaint The patient is a 78-year-old female admitted with a reason for visit of Intractable Pain. Source: Patient, Family Exam Limitations: Other (pain ) Associated Symptoms: Unobtainable History of Present Illness History provided by sons and friend present for examination. Ms. David is a 78 year old female who was brought to the ED by her family as she had become 'un-responsive' overnight. It appears Ms. David is from [place]; she is here visiting with her friend. Seven days ago, she slipped and fell due to ice on outdoor steps. She landed on her bottom and slid down the remaining steps. Pt reportedly did not hit her head or lose consciousness. At the time, Ms. David refused to be assessed. Eventually she went to and urgent care clinic, received rib X-rays and was told her ribs were 'pushing into each other.' Since then, it sounds as if she tolerated the discomfort in her back well with OTC Tylenol. As of last night, she reportedly became 'un-responsive' i.e. she grunted when asked questions, wasn't herself, seemed confused. She was brought to the ED by her family today. Ms. David is able to tell me her lower back hurts; the pain is 10/10, makes her gasp and catch her breath. She has some pain that shoots along her diaphragm (pointed out by pt.) at times, worse with breathing. She had some urinary incontinence during examination; pt. denied saddle anesthesia. Home Medications Scheduled Aspirin (Aspirin EC) 81 Mg Tablet.dr, 81 MG PO DAILY, (Reported) Doxazosin Mesylate (Doxazosin Mesylate) 1 Mg Tablet, 1 MG PO QHS, (Reported) Furosemide (Furosemide) 40 Mg Tablet, 40 MG PO DAILY, (Reported) Insulin Detemir (Levemir) 100 Unit/1 Ml Vial, 21 UNITS SC QHS, (Reported) L.acidoph/L.bulg/B.bif/S.therm (Bacid Caplet) 1 Each Tablet, 1 TAB PO DAILY, (Reported) Methenamine Hippurate (Methenamine Hippurate) 1 Gm Tablet, 1 GM PO BID, (Reported) Pravastatin Sodium (Pravastatin Sodium) 40 Mg Tablet, 40 MG PO QHS, (Reported) Travoprost (Travatan Z) 0.004% 2.5ML Drops, 1 DROP OU QHS, (Reported) Trazodone HCl (Trazodone HCl) 100 Mg Tablet, 100 MG PO QHS, (Reported) Allergies Coded Allergies: Sulfa (Sulfonamide Antibiotics) (Verified Allergy, Intermediate, HIVES, 10/09/19) Hives latex (Verified Allergy, Intermediate, hives, 10/09/19) codeine (Verified Adverse Reaction, Mild, GI UPSET, 10/09/19) GI Upset Past Medical History Medical History Diabetes Hypertension Mood disorder Hyperlipidemia Complicated pyelonephritis with left ureteral stent in place KIRK Chronic obstruction with Chronic Left hydronephrosis Nephrolithiasis with h/o proximal ureteric stone in April 2019, left ureteral stent placed then and changed on 08/01 Intertriginous candidiasis Urosepsis Surgical History CABG x3, 10 years prior Stents Tubal ligation Bladder suspension w/mesh sling Shoulder arthroscopy Cataract surgery partial hysterectomy exploratory lap Family History Significant Family History: No pertinent family hx Social History * Smoker: former Smoker (has not smoked for more than 30 years) Alcohol: Denies Drugs: denies Psychosocial History: No pertinent psych hx A-FIB/CHADSVASC A-FIB History Current/History of A-Fib/PAF?: No Current PO Anticoag Therapy: No Review of Systems Constitutional: Denies: Chills, Night Sweats Eyes: Denies: Pain ENT: Denies: Head Aches Cardiovascular: Denies: Chest Pain Gastrointestinal: Denies: Nausea, Vomiting, Abdominal Pain Musculoskeletal: Reports: Back Pain (08/07 lower back ); Denies: Leg Pain, Foot Pain, Spasms Neurological: Reports: Weakness (restricted by pain ); Denies: Numbness Physical Examination General Exam: Positive: Cooperative, Moderate Distress (patient in significant pain at time of exam) Eye Exam: Positive: Conjunctiva & lids normal ENT Exam: Positive: Atraumatic Chest Exam: Positive: Clear to auscultation, Normal air movement Heart Exam: Positive: Rate Normal, Regular Rhythm, Murmurs (3/6 blowing murmur loudest near the apex ); Negative: Rubs Abdomen Exam: Positive: Soft; Negative: Tenderness Extremity Exam: Positive: Normal pulses; Negative: Clubbing, Cyanosis, Edema Skin Exam: Negative: Nl turgor and temperature (large, purple bruises over middle and lower back) Psych Exam: Positive: Other Vital Signs Vital Signs Date Time Temp Pulse Resp B/P (MAP) Pulse Ox O2 Delivery O2 Flow Rate FiO2 10/09/19 12:18 18 Room Air 10/09/19 10:09 98.4 65 190/94 (126) 95 Laboratory Data Labs 24H Laboratory Tests 2 10/09/19 11:45: Immature Granulocyte % (Auto) 0.8, Neutrophils (%) (Auto) 77.5H, Lymphocytes (%) (Auto) 10.8L, Monocytes (%) (Auto) 7.4H, Eosinophils (%) (Auto) 3.1H, Basophils (%) (Auto) 0.4, Neutrophils # (Auto) 6.9, Lymphocytes # (Auto) 1.0L, Monocytes # (Auto) 0.7, Eosinophils # (Auto) 0.3, Basophils # (Auto) 0.0, Nucleated Red Blood Cells % (auto) 0.0, Prothrombin Time 14.0, Prothromb Time International Ratio 1.11, Anion Gap 7L, Glomerular Filtration Rate 34.0L, Calcium Level 9.3, Total Bilirubin 0.6, Aspartate Amino Transf (AST/SGOT) 15, Alanine Aminotra nsferase (ALT/SGPT) 13, Alkaline Phosphatase 119H, Total Protein 7.9, Albumin 3.3, Albumin/Globulin Ratio 0.72L CBC/BMP Laboratory Tests 10/09/19 11:45 Assessment/Plan Ms. David is a 78 year old female who was brought to the ED by her family as she had become 'un-responsive' overnight. Seven days ago, she slipped and fell due to ice on outdoor steps. Since then, it sounds as if she tolerated the discomfort in her back well with OTC Tylenol. As of last night, she reportedly became 'un-responsive' i.e. she grunted when asked questions, wasn't herself, seemed confused. She was brought to the ED by her family today. Ms. David has a PMHx which includes: Diabetes Hypertension, Mood disorder, Hyperlipidemia, Complicated pyelonephritis with left ureteral stent in place, KIRK, Chronic obstruction with Chronic Left hydronephrosis, Nephrolithiasis with h/o proximal ureteric stone in April 2019, left ureteral stent placed then and changed on 08/01, Intertriginous candidiasis and Urosepsis. Ms David to be admitted to the floor. Imaging CT Lumbar spine: "Recent T5 predominantly central compression deformity as described without hemorrhage within the spinal canal or significant spinal canal narrowing." CT Chest: "Multiple bilateral old rib fractures. Possible acute nondisplaced right posterior 10th rib fracture. Recent wedge compression fracture deformity T5 vertebral body with 50% loss of vertebral body heights, 3 mm retropulsion, but without evidence of posterior element involvement." CT Thoracic spine: "Recent T5 predominantly central compression deformity as described without hemorrhage within the spinal canal or significant spinal canal narrowing. Extensive atherosclerotic disease." Wedge compression fracture deformity @ T5: - causing / pain in the patient - ortho consulted per Dr. Alfaro. - Back brace ordered by Ortho. Pain control. - Patient reportedly did not tolerate Oxycodone/codeine in the past well? per family but not a true allergy. - Discussed with family, wanted to try it again. To give 5 mg dose q6 with morphine for break through pain. Possible 10th rib fracture - comfort care - monitor clinically for resolution - any deterioration, consider repeat imaging - sons are surprised RE: old rib fractures seen on CT. Suggest follow-up with PCP for osteoporosis if status unknown AMS: - WBC 9.0 - UA with reflex culture pending - monitor closely due to Ms. David's significant UTI Hx. CAD: - Continue Prevachol. HTN: - Continue to monitor BP BID - Continue Furosemide 40mg PO qday KIRK, chronic obstruction & hydronephrosis: Cr. 1.57 today which appears typical of Ms. David Consider nephrology consult prn monitor BMP qam Plan / VTE VTE Prophylaxis Ordered?: Yes (Lovenox ) Plan Diet: Continue Current Activity: Bedrest Therapy: PT (after orthopedic consult and patient is made comfortable ) ATTENDING NOTE I have personally performed a face to face diagnostic evaluation on this patient. I have reviewed and agree with the care plan. GISELLE CARRASCO PA-C Oct 09, 2019 14:15 HOUSTON ALFARO MD Oct 09, 2019 17:11
[2019-10-09] MEDS ORDERED: GLUCOSE 4 GM CHEW TABLET PO PRN (14:45)
[2019-10-09] MEDS ORDERED: GLUCAGON FOR INJ 1 MG VIAL (J1610) SC PRN (14:45)
[2019-10-09] MEDS ORDERED: DEXTROSE 50% 50 ML SYRINGE IV PRN (14:45)
[2019-10-09 17:06] VITALS: BP 164/77
[2019-10-09] MEDS: FUROSEMIDE 40 MG TAB PO SCH (17:20)
[2019-10-09] MEDS: ASPIRIN 81 MG ENTERIC TAB PO SCH (17:20)
[2019-10-09] MEDS: traMADol 50 MG TAB PO PRN (17:20)
--- NOTE | 2019-10-09 17:59 | CR ---
DATE OF CONSULTATION: 10/09/2019 CONSULTATION FOR: Dr. Goodman CHIEF COMPLAINT: Back pain, status post a fall 3 days ago. HISTORY: This is a 78-year-old woman with obesity who had a fall on Sunday, 3 days ago, and injured her back. She basically just tried to take care of it at home and then was seen, I believe, by her primary provider yesterday, although she was a little bit unclear on the details. X-rays were obtained, and she ended up presenting to the emergency room today because of ongoing pain. She denies any radicular pain or any leg pain or any bowel and bladder changes, and actually has been having regular bowel movements. It appears that she is visiting from out of the area. She had fallen on the ice on some outdoor steps. Her note in the chart indicated that she fell 7 days ago, but she indicated that she fell 3 days ago. She denies any other injury, just back pain in the region of her thoracic spine between her shoulder blades. She also says that she has some rib discomfort along the right side of her chest cage. ALLERGIES: Her allergies include SULFA, LATEX, CODEINE. HOME MEDICATIONS: Include aspirin, doxazosin, Lasix, insulin, Bacid caplets, methenamine, pravastatin sodium, Travatan Z, and trazodone. PAST MEDICAL HISTORY: Notable for diabetes, hypertension, mood disorder, hyperlipidemia, pyelonephritis and stones, hydronephrosis, urosepsis candidiasis. SURGICAL HISTORY: Includes coronary bypass graft stents, tubal ligation, bladder suspension, shoulder arthroscopy, cataract surgery, partial hysterectomy, and exploratory laparotomy. FAMILY HISTORY: Otherwise noncontributory and she again is a poor historian. SOCIAL HISTORY: She is a former smoker. She denies alcohol or drug use. PHYSICAL EXAMINATION: She is alert, oriented, again having a difficult time with the details. Abdomen soft, nontender but obese. She has nonlabored breathing. She has a regular rate and rhythm to her pulse. Her back demonstrates significant tenderness in the mid thoracic spine region. She is not tender throughout her lower spine. She does relate some right-sided rib tenderness to palpation. She is neurovascularly intact distally, has intact pulses, sensation distally and she has good motor within the limits of her exam due to her discomfort, but she has good ankle dorsiflexion and plantar flexion, is able to move her knees and hips to some degree, but again this exacerbates her back pain. Vital signs: Include respirations 18, blood pressure this morning 190/94, temperature 98.4. CT scans are reviewed of her thoracic and lumbar spine, and there is a T5 compression fracture with really no significant retropulsion. No other clear evidence of fracture in her spine. CT chest demonstrated a right posterior 10th rib fracture. IMPRESSION: T5 compression fracture without significant retropulsion. No obvious neurologic compromise and no obvious ileus at this point. RECOMMENDATIONS: 1. Pain medication. 2. Deep vein thrombosis (DVT) prophylaxis and would recommend Lovenox that apparently is ordered and also thromboembolism deterrents (YUN) stockings with her obesity and the fact that she is likely to be sedentary for some time. In addition, I would like to order a thoracolumbosacral orthosis (TLSO), and I have discussed this with Sil Amos who is going to take care of getting that ordered. The patient will need to have the brace on when out of bed and when sitting upright. She does not need it when she is in bed horizontal. Pain medication per medical service. The rib fracture, of course, would not need any specific treatment. Please have the patient follow with us in a week to 10 days in the office, and please do not hesitate to contact us if there are questions or concerns regarding her care. YAMILET
[2019-10-09] MEDS: HumaLOG INSULIN (NovoLOG) PER UNIT SC SCH ×2 (18:07→21:00)
[2019-10-09] MEDS: NYSTATIN 100,000 UNITS/GM TOPICAL PWD 15 GM TOP SCH (19:30)
[2019-10-09 20:51] VITALS: BP 128/70
[2019-10-09] MEDS: LATANOPROST 0.005% OPHTH SOLN 2.5 ML OU SCH (21:00)
[2019-10-09] MEDS: DOXAZOSIN MESYLATE 1 MG TAB PO SCH (21:00)
[2019-10-09] MEDS: PRAVASTATIN 20 MG TAB PO SCH (21:35)
[2019-10-09] MEDS: ENOXAPARIN 40 MG/0.4 ML SYRINGE (J1650) SC SCH (21:36)
[2019-10-09] MEDS: traZODone 100 MG TAB PO SCH (21:36)
[2019-10-09] MEDS: LEVEMIR (INSULIN DETEMIR) 1 UNITS/0.01ML SC SCH (21:36)
[2019-10-10 05:50] VITALS: BP 141/91
[2019-10-10 06:37] LABS: HEMATOCRIT 37.9 % (36.0-47.0); HEMOGLOBIN 11.8 g/dl (12.0-15.5); MEAN CORPUSCULAR HEMOGLOBIN 32.2 pg (27.0-33.0); MEAN CORPUSCULAR HGB CONC 31.1 g/dl (32.0-36.5); MEAN CORPUSCULAR VOLUME 103.3 fl (80.0-96.0); PLATELET COUNT, AUTOMATED 334 10^3/uL (150-450); RED BLOOD COUNT 3.67 10^6/uL (4.00-5.40); WHITE BLOOD COUNT 6.4 10^3/uL (4.0-10.0)
[2019-10-10 07:03] LABS: CALCIUM LEVEL 9.9 MG/DL (8.8-10.2); CREATININE FOR GFR 1.79 MG/DL (0.55-1.30); GLOMERULAR FILTRATION RATE 29.2 (>39); POTASSIUM SERUM 4.2 MEQ/L (3.5-5.1)
[2019-10-10] MEDS: HumaLOG INSULIN (NovoLOG) PER UNIT SC SCH ×4 (08:15→21:00)
[2019-10-10] MEDS: NYSTATIN 100,000 UNITS/GM TOPICAL PWD 15 GM TOP SCH (08:15)
[2019-10-10] MEDS: FUROSEMIDE 40 MG TAB PO SCH (08:15)
[2019-10-10] MEDS: ASPIRIN 81 MG ENTERIC TAB PO SCH (08:16)
[2019-10-10] MEDS: MIRALAX *UNIT DOSE* 17GM PACKET PO SCH (08:16)
[2019-10-10] MEDS: SENOKOT S TAB PO SCH ×2 (08:16→21:08)
[2019-10-10] MEDS: MOM 30ML SUSPENSION UDC PO SCH (08:16)
[2019-10-10] MEDS: traMADol 50 MG TAB PO PRN (08:16)
[2019-10-10 14:51] VITALS: BP 96/45
--- NOTE | 2019-10-10 19:22 | IPNPDOC ---
Date Seen The patient was seen on 10/10/19. Progress Note SUBJECTIVE: Patient appear much more comfortable today. Pain reportedly much improved but still significant. To start PT assessment. Has been taking Tramadol and still avoiding opiates as much as possible. OBJECTIVE PHYSICAL EXAMINATION: VITAL SIGNS: Please see below. General: Mild distress, Alert Eyes: Normal sclera, EOMI HENT: Atraumatic Cardiovascular: Normal rate, normal rhythm. Pulmonary: Clear to auscultation b/l, no wheezing GI: Soft, nontender, nondistended Skin: Warm and dry Neuro: CN grossly intact. No focal deficits. Strengths equal b/l. Psych: oriented x 3 LABORATORY DATA, IMAGING STUDIES, MICROBIOLOGY: Please see below. DVT prophylaxis ordered?: Lovenox ASSESSMENT AND PLAN: 1. T5 compression fracture and rib fracture 2/2 Fall - Pain control. Ortho evaluated, ordered back brace. - c/w PT. Incentive spirometry. - May need Rehab or VIOLA placement with help of CM depending on PT. 2. AMS? - Have not noted that on admission at all. 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 Appear to be around baseline. 4. DM - c/w levemir 21 units qhs with ISS ACHS. DISPOSITION: Likely Rehab VS, I&O, 24H, Fishbone Vital Signs/I&O Vital Signs Date Time Temp Pulse Resp B/P (MAP) Pulse Ox O2 Delivery O2 Flow Rate FiO2 10/10/19 14:51 98.6 86 22 96/45 (62) 91 Room Air I&O- Last 24 Hours up to 6 AM 10/10/19 06:00 Intake Total 840 ml Balance 840 ml Laboratory Data 24H LABS Laboratory Tests 2 10/09/19 20:49: Bedside Glucose (Misc Panel) 167H 10/10/19 06:10: Nucleated Red Blood Cells % (auto) 0.0, Anion Gap 6L, Glomerular Filtration Rate 29.2L, Calcium Level 9.9 10/10/19 11:40: Bedside Glucose (Misc Panel) 200H 10/10/19 16:32: Bedside Glucose (Misc Panel) 149H CBC/BMP Laboratory Tests 10/10/19 06:10 HOUSTON ALFARO MD Oct 10, 2019 19:22
[2019-10-10 20:00] VITALS: BP 130/90
[2019-10-10] MEDS: traZODone 100 MG TAB PO SCH (21:08)
[2019-10-10] MEDS: PRAVASTATIN 20 MG TAB PO SCH (21:08)
[2019-10-10] MEDS: DOXAZOSIN MESYLATE 1 MG TAB PO SCH (21:08)
[2019-10-10] MEDS: LEVEMIR (INSULIN DETEMIR) 1 UNITS/0.01ML SC SCH (21:09)
[2019-10-10] MEDS: ENOXAPARIN 40 MG/0.4 ML SYRINGE (J1650) SC SCH (21:09)
[2019-10-10] MEDS: LATANOPROST 0.005% OPHTH SOLN 2.5 ML OU SCH (21:09)
[2019-10-10 22:00] VITALS: BP 139/72
[2019-10-11] MEDS: traMADol 50 MG TAB PO PRN ×2 (02:08→09:50)
[2019-10-11 06:00] VITALS: BP 136/72
[2019-10-11 07:03] LABS: HEMATOCRIT 35.2 % (36.0-47.0); HEMOGLOBIN 11.3 g/dl (12.0-15.5); MEAN CORPUSCULAR HEMOGLOBIN 32.5 pg (27.0-33.0); MEAN CORPUSCULAR HGB CONC 32.1 g/dl (32.0-36.5); MEAN CORPUSCULAR VOLUME 101.1 fl (80.0-96.0); PLATELET COUNT, AUTOMATED 313 10^3/uL (150-450); RED BLOOD COUNT 3.48 10^6/uL (4.00-5.40); WHITE BLOOD COUNT 7.2 10^3/uL (4.0-10.0)
[2019-10-11 07:21] LABS: CALCIUM LEVEL 9.6 MG/DL (8.8-10.2); CREATININE FOR GFR 1.86 MG/DL (0.55-1.30); POTASSIUM SERUM 4.1 MEQ/L (3.5-5.1)
[2019-10-11] MEDS: MIRALAX *UNIT DOSE* 17GM PACKET PO SCH ×2 (09:00→09:50)
[2019-10-11] MEDS: ASPIRIN 81 MG ENTERIC TAB PO SCH (09:48)
[2019-10-11] MEDS: MOM 30ML SUSPENSION UDC PO SCH (09:48)
[2019-10-11] MEDS: FUROSEMIDE 40 MG TAB PO SCH (09:49)
[2019-10-11] MEDS: SENOKOT S TAB PO SCH ×2 (09:49→20:38)
[2019-10-11] MEDS: HumaLOG INSULIN (NovoLOG) PER UNIT SC SCH ×4 (09:51→20:39)
[2019-10-11] MEDS: NYSTATIN 100,000 UNITS/GM TOPICAL PWD 15 GM TOP SCH (09:51)
[2019-10-11 14:00] VITALS: BP 125/68
--- NOTE | 2019-10-11 15:16 | IPNPDOC ---
Date Seen The patient was seen on 10/11/19. Progress Note SUBJECTIVE: Patient continues to feel better today. Pain persistent but improve from yesterday. Has had some work with PT. OBJECTIVE PHYSICAL EXAMINATION: VITAL SIGNS: Please see below. General: Mild distress, Alert Eyes: Normal sclera, EOMI HENT: Atraumatic Chest: R. inferior flank/rib tenderness. MSK: Severe Lower thoracic/upper lumbar tenderness. Cardiovascular: Normal rate, normal rhythm. Pulmonary: Clear to auscultation b/l, no wheezing GI: Soft, nontender, nondistended Skin: Warm and dry Neuro: CN grossly intact. No focal deficits. Strengths equal b/l. Psych: oriented x 3 LABORATORY DATA, IMAGING STUDIES, MICROBIOLOGY: Please see below. DVT prophylaxis ordered?: Lovenox ASSESSMENT AND PLAN: 1. T5 compression fracture and rib fracture 2/2 Fall - Pain control. Ortho evaluated, ordered back brace. - c/w PT. Incentive spirometry. - May need Rehab or VIOLA placement with help of CM depending on PT. 2. AMS? - Have not noted that on admission at all. 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 Appear to be around baseline. 4. DM - c/w levemir 21 units qhs with ISS ACHS. DISPOSITION: Likely Rehab VS, I&O, 24H, Fishbone Vital Signs/I&O Vital Signs Date Time Temp Pulse Resp B/P (MAP) Pulse Ox O2 Delivery O2 Flow Rate FiO2 10/11/19 10:20 18 10/11/19 09:00 2.0 10/11/19 06:00 98.3 71 136/72 (93) 97 Nasal Cannula I&O- Last 24 Hours up to 6 AM 10/11/19 06:00 Intake Total 1300 ml Balance 1300 ml Laboratory Data 24H LABS Laboratory Tests 2 10/10/19 16:32: Bedside Glucose (Misc Panel) 149H 10/10/19 20:32: Bedside Glucose (Misc Panel) 217H 10/11/19 06:38: Nucleated Red Blood Cells % (auto) 0.0, Anion Gap 9, Glomerular Filtration Rate 28.0L, Calcium Level 9.6 10/11/19 11:46: Bedside Glucose (Misc Panel) 220H CBC/BMP Laboratory Tests 10/11/19 06:38 HOUSTON ALFARO MD Oct 11, 2019 15:16
[2019-10-11] MEDS: DOXAZOSIN MESYLATE 1 MG TAB PO SCH (20:38)
[2019-10-11] MEDS: traZODone 100 MG TAB PO SCH (20:38)
[2019-10-11] MEDS: PRAVASTATIN 20 MG TAB PO SCH (20:38)
[2019-10-11] MEDS: ENOXAPARIN 40 MG/0.4 ML SYRINGE (J1650) SC SCH (20:39)
[2019-10-11] MEDS: LATANOPROST 0.005% OPHTH SOLN 2.5 ML OU SCH (20:39)
[2019-10-11] MEDS: LEVEMIR (INSULIN DETEMIR) 1 UNITS/0.01ML SC SCH (20:39)
[2019-10-11 22:00] VITALS: BP 114/63
[2019-10-12] MEDS: traMADol 50 MG TAB PO PRN ×2 (05:44→18:45)
[2019-10-12 06:00] VITALS: BP 131/69
[2019-10-12 06:55] LABS: HEMATOCRIT 36.2 % (36.0-47.0); HEMOGLOBIN 11.2 g/dl (12.0-15.5); MEAN CORPUSCULAR HEMOGLOBIN 31.7 pg (27.0-33.0); MEAN CORPUSCULAR HGB CONC 30.9 g/dl (32.0-36.5); MEAN CORPUSCULAR VOLUME 102.5 fl (80.0-96.0); PLATELET COUNT, AUTOMATED 298 10^3/uL (150-450); RED BLOOD COUNT 3.53 10^6/uL (4.00-5.40); WHITE BLOOD COUNT 6.5 10^3/uL (4.0-10.0)
[2019-10-12 07:27] LABS: CALCIUM LEVEL 9.2 MG/DL (8.8-10.2); CREATININE FOR GFR 2.05 MG/DL (0.55-1.30)
[2019-10-12] MEDS: HumaLOG INSULIN (NovoLOG) PER UNIT SC SCH ×4 (07:30→21:00)
[2019-10-12] MEDS: MIRALAX *UNIT DOSE* 17GM PACKET PO SCH (08:58)
[2019-10-12] MEDS: SENOKOT S TAB PO SCH ×2 (08:58→21:00)
[2019-10-12] MEDS: FUROSEMIDE 40 MG TAB PO SCH ×2 (08:58→09:00)
[2019-10-12] MEDS: ASPIRIN 81 MG ENTERIC TAB PO SCH (08:58)
[2019-10-12] MEDS: MOM 30ML SUSPENSION UDC PO SCH (08:58)
[2019-10-12] MEDS: NYSTATIN 100,000 UNITS/GM TOPICAL PWD 15 GM TOP SCH (08:59)
[2019-10-12] MEDS: NS 1,000 ML IV SCH ×2 (09:00→22:20)
[2019-10-12] MEDS ORDERED: CLOTRIMAZOLE 1% VAG CR 45 GM PV SCH (11:00)
[2019-10-12 14:00] VITALS: BP 114/64
--- NOTE | 2019-10-12 14:51 | IPNPDOC ---
Date Seen The patient was seen on 10/12/19. Progress Note SUBJECTIVE: Patient pain improves further today. Appear more comfortable, even on just Tramadol. Denies any complaints other than R. sided rib pain and lower back pain. Cr 1.86->2.05. IVF was considered but patient does not have IV and does not want one placed at this time. OBJECTIVE PHYSICAL EXAMINATION: VITAL SIGNS: Please see below. General: Mild distress, Alert Eyes: Normal sclera, EOMI HENT: Atraumatic Chest: R. inferior flank/rib tenderness. MSK: Severe Lower thoracic/upper lumbar tenderness. Cardiovascular: Normal rate, normal rhythm. Pulmonary: Clear to auscultation b/l, no wheezing GI: Soft, nontender, nondistended Skin: Warm and dry Neuro: CN grossly intact. No focal deficits. Strengths equal b/l. Psych: oriented x 3 LABORATORY DATA, IMAGING STUDIES, MICROBIOLOGY: Please see below. DVT prophylaxis ordered?: Lovenox ASSESSMENT AND PLAN: 1. T5 compression fracture and rib fracture 2/2 Fall - Pain control. Ortho evaluated, ordered back brace. - c/w PT. Incentive spirometry. - May need Rehab or VIOLA placement with help of CM depending on PT. 2. AMS? - Have not noted that on admission at all. 3. KIRK on CKD 3-4 - kidney function slowly worsens over the past few days. - Hold lasix for today as no significant swelling is noted. hold on IVF resus citation at this time. - If continue to worsen, consider Nephro consultation. 4. DM - c/w levemir 21 units qhs with ISS ACHS. DISPOSITION: Likely Rehab VS, I&O, 24H, [facility] Vital Signs/I&O Vital Signs Date Time Temp Pulse Resp B/P (MAP) Pulse Ox O2 Delivery O2 Flow Rate FiO2 10/12/19 06:19 16 10/12/19 06:00 97.3 18 131/69 (89) 93 Room Air 10/11/19 22:00 2.0 I&O- Last 24 Hours up to 6 AM 10/12/19 06:00 Intake Total 1380 ml Output Total 175 ml Balance 1205 ml Laboratory Data 24H LABS Laboratory Tests 2 10/11/19 16:08: Bedside Glucose (Misc Panel) 142H 10/11/19 19:49: Bedside Glucose (Misc Panel) 90 10/12/19 05:57: Nucleated Red Blood Cells % (auto) 0.0, Anion Gap 8, Glomerular Filtration Rate 25.0L, Calcium Level 9.2 10/12/19 11:12: Bedside Glucose (Misc Panel) 231H CBC/BMP Laboratory Tests 10/12/19 05:57 HOUSTON ALFARO MD Oct 12, 2019 14:51
[2019-10-12] MEDS: CLOTRIMAZOLE 1% VAG CR 45 GM PV SCH (21:00)
[2019-10-12] MEDS: LEVEMIR (INSULIN DETEMIR) 1 UNITS/0.01ML SC SCH (21:44)
[2019-10-12] MEDS: ENOXAPARIN 40 MG/0.4 ML SYRINGE (J1650) SC SCH (21:44)
[2019-10-12] MEDS: DOXAZOSIN MESYLATE 1 MG TAB PO SCH (21:45)
[2019-10-12] MEDS: traZODone 100 MG TAB PO SCH (21:46)
[2019-10-12] MEDS: PRAVASTATIN 20 MG TAB PO SCH (21:46)
[2019-10-12] MEDS: LATANOPROST 0.005% OPHTH SOLN 2.5 ML OU SCH (21:47)
[2019-10-12 22:00] VITALS: BP 114/65
[2019-10-13 06:00] VITALS: BP 136/68
[2019-10-13 06:21] LABS: HEMATOCRIT 35.3 % (36.0-47.0); HEMOGLOBIN 11.2 g/dl (12.0-15.5); MEAN CORPUSCULAR HEMOGLOBIN 32.1 pg (27.0-33.0); MEAN CORPUSCULAR HGB CONC 31.7 g/dl (32.0-36.5); MEAN CORPUSCULAR VOLUME 101.1 fl (80.0-96.0); PLATELET COUNT, AUTOMATED 299 10^3/uL (150-450); RED BLOOD COUNT 3.49 10^6/uL (4.00-5.40); WHITE BLOOD COUNT 6.2 10^3/uL (4.0-10.0)
[2019-10-13 06:37] LABS: CALCIUM LEVEL 9.1 MG/DL (8.8-10.2); CREATININE FOR GFR 1.86 MG/DL (0.55-1.30)
[2019-10-13] MEDS: MOM 30ML SUSPENSION UDC PO SCH (07:58)
[2019-10-13] MEDS: ASPIRIN 81 MG ENTERIC TAB PO SCH (07:58)
[2019-10-13] MEDS: HumaLOG INSULIN (NovoLOG) PER UNIT SC SCH ×4 (07:58→21:00)
[2019-10-13] MEDS: MIRALAX *UNIT DOSE* 17GM PACKET PO SCH ×2 (07:58→08:02)
[2019-10-13] MEDS: traMADol 50 MG TAB PO PRN ×3 (07:59→21:41)
[2019-10-13] MEDS: FUROSEMIDE 40 MG TAB PO SCH (07:59)
[2019-10-13] MEDS: SENOKOT S TAB PO SCH ×2 (07:59→21:38)
[2019-10-13] MEDS: NYSTATIN 100,000 UNITS/GM TOPICAL PWD 15 GM TOP SCH (08:00)
--- NOTE | 2019-10-13 09:43 | IPNPDOC ---
Text Note Date of Service The patient was seen on 10/13/19. NOTE SUBJECTIVE: Patient seen and examined at bedside. No acute overnight events reported. No new medical complaints this morning. OBJECTIVE: VITAL SIGNS: Please see below. General: NAD, elderly, sitting comfortably in chair HEENT: NC/AT Heart: +S1S2, RRR, systolic murmur Lungs: CTA B/L Chest: R. inferior flank/rib tenderness. MSK: Severe Lower thoracic/upper lumbar tenderness. GI: Soft, nontender, nondistended Skin: Warm and dry Neuro: CN grossly intact. No focal deficits. Strengths equal b/l. Psych: oriented x 3 LABORATORY DATA, IMAGING STUDIES, MICROBIOLOGY: Please see below. ASSESSMENT AND PLAN: 1. T5 compression fracture and rib fracture 2/2 Fall - Pain control. Ortho evaluated, ordered back brace. - c/w PT. Incentive spirometry. - May need Rehab or VIOLA placement with help of CM depending on PT. 2. AMS on admission - appears to have resolved 3. KIRK on CKD 3-4 - improved from yesterday - continue to follow BMP 4. DM - c/w levemir 21 units qhs with ISS ACHS. DISPOSITION: Likely Rehab VS,Fishbone, I+O VS, Fishbone, I+O Laboratory Tests 10/13/19 05:53 Vital Signs Date Time Temp Pulse Resp B/P (MAP) Pulse Ox O2 Delivery O2 Flow Rate FiO2 10/13/19 07:59 18 10/13/19 06:00 97.2 67 136/68 (90) 98 Room Air 10/11/19 22:00 2.0 I&O- Last 24 Hours up to 6 AM 10/13/19 06:00 Intake Total 1140 ml Output Total 0 ml Balance 1140 ml MAIA ONTIVEROS MD Oct 13, 2019 09:43
[2019-10-13] MEDS: NS 1,000 ML IV SCH (11:40)
[2019-10-13 14:00] VITALS: BP 128/69
[2019-10-13] MEDS: CLOTRIMAZOLE 1% VAG CR 45 GM PV SCH (21:00)
[2019-10-13] MEDS: LATANOPROST 0.005% OPHTH SOLN 2.5 ML OU SCH (21:35)
[2019-10-13] MEDS: LEVEMIR (INSULIN DETEMIR) 1 UNITS/0.01ML SC SCH (21:36)
[2019-10-13] MEDS: DOXAZOSIN MESYLATE 1 MG TAB PO SCH (21:37)
[2019-10-13] MEDS: traZODone 100 MG TAB PO SCH (21:38)
[2019-10-13] MEDS: ENOXAPARIN 40 MG/0.4 ML SYRINGE (J1650) SC SCH (21:38)
[2019-10-13] MEDS: PRAVASTATIN 20 MG TAB PO SCH (21:38)
[2019-10-13 22:00] VITALS: BP 125/64
[2019-10-14] MEDS: NS 1,000 ML IV SCH (01:00)
[2019-10-14 06:00] VITALS: BP 122/68
[2019-10-14 07:24] LABS: HEMATOCRIT 35.1 % (36.0-47.0); HEMOGLOBIN 11.1 g/dl (12.0-15.5); MEAN CORPUSCULAR HEMOGLOBIN 32.2 pg (27.0-33.0); MEAN CORPUSCULAR HGB CONC 31.6 g/dl (32.0-36.5); MEAN CORPUSCULAR VOLUME 101.7 fl (80.0-96.0); PLATELET COUNT, AUTOMATED 304 10^3/uL (150-450); RED BLOOD COUNT 3.45 10^6/uL (4.00-5.40); WHITE BLOOD COUNT 5.2 10^3/uL (4.0-10.0)
[2019-10-14 07:51] LABS: CALCIUM LEVEL 9.3 MG/DL (8.8-10.2); CREATININE FOR GFR 1.57 MG/DL (0.55-1.30); POTASSIUM SERUM 4.3 MEQ/L (3.5-5.1)
[2019-10-14] MEDS: MIRALAX *UNIT DOSE* 17GM PACKET PO SCH (08:57)
[2019-10-14] MEDS: traMADol 50 MG TAB PO PRN ×3 (09:03→21:42)
[2019-10-14] MEDS: HumaLOG INSULIN (NovoLOG) PER UNIT SC SCH ×4 (09:03→21:00)
[2019-10-14] MEDS: SENOKOT S TAB PO SCH ×2 (09:04→21:05)
[2019-10-14] MEDS: FUROSEMIDE 40 MG TAB PO SCH (09:04)
[2019-10-14] MEDS: ASPIRIN 81 MG ENTERIC TAB PO SCH (09:04)
[2019-10-14] MEDS: NYSTATIN 100,000 UNITS/GM TOPICAL PWD 15 GM TOP SCH (09:07)
[2019-10-14 15:15] VITALS: BP 123/70
--- NOTE | 2019-10-14 17:00 | IPNPDOC ---
Subjective Date Seen The patient was seen on 10/14/19. Subjective Chief Complaint/HPI Ms. David is a 78 year old female who was brought to the ED by her family as she had become 'un-responsive' overnight. She was admitted with a diagnosis of intractable pain secondary to a 10th R rib Fx and T5 central compression deformity. Ms. David stated her pain is now a 2 or 3/10 vs when she first arrived. She has been walking with PT and she is ready to be discharged home tomorrow. Constitutional: Denies: Chills, Fever, Night Sweats Eyes: Denies: Pain ENT: Denies: Head Aches Skin: Denies: Rash Pulmonary: Denies: Dyspnea, Cough Cardiovascular: Denies: Chest Pain, Palpitations, Orthopnea, Lt Headedness Gastrointestinal: Denies: Abdominal Pain Genitourinary: Denies: Dysuria Hematologic: Denies: Bruising Musculoskeletal: Reports: Back Pain (2/10 ortho ordered back brace helps ), Other Symptoms (Rib pain 3/10, worse with deep breaths ); Denies: Neck Pain Neurological: Denies: Weakness Objective Physical Examination General Exam: Positive: Alert, Cooperative, No Acute Distress Eye Exam: Positive: Conjunctiva & lids normal ENT Exam: Positive: Atraumatic Neck Exam: Positive: Supple Chest Exam: Positive: Clear to auscultation, Normal air movement Heart Exam: Positive: Rate Normal, Regular Rhythm, Murmurs (3/6 blowing murmur loudest near the apex ); Negative: Rubs Abdomen Exam: Positive: Soft; Negative: Tenderness Extremity Exam: Positive: Normal pulses; Negative: Clubbing, Cyanosis, Edema Skin Exam: Negative: Nl turgor and temperature (large, purple bruises over middle and lower back) Neuro Exam: Positive: Normal Speech, Other (ambulates well with zimmerframe and assistance x 1 ) Psych Exam: Positive: Mood NL, Oriented x 3 Assessment /Plan Assessment Ms. David is a 78 year old female who was brought to the ED by her family as she had become 'un-responsive' overnight. Seven days ago, she slipped and fell due to ice on outdoor steps. Since then, it sounds as if she tolerated the discomfort in her back well with OTC Tylenol. As of last night, she reportedly became 'un-responsive' i.e. she grunted when asked questions, wasn't herself, seemed confused. She was brought to the ED by her family today. Ms. David has a PMHx which includes: Diabetes Hypertension, Mood disorder, Hyperlipidemia, Complicated pyelonephritis with left ureteral stent in place, KIRK, Chronic obstruction with Chronic Left hydronephrosis, Nephrolithiasis with h/o proximal ureteric stone in April 2019, left ureteral stent placed then and changed on 08/01, Intertriginous candidiasis and Urosepsis. Ms David to be admitted to the floor. Imaging CT Lumbar spine: "Recent T5 predominantly central compression deformity as described without hemorrhage within the spinal canal or significant spinal canal narrowing." CT Chest: "Multiple bilateral old rib fractures. Possible acute nondisplaced right posterior 10th rib fracture. Recent wedge compression fracture deformity T5 vertebral body with 50% loss of vertebral body heights, 3 mm retropulsion, but without evidence of posterior element involvement." CT Thoracic spine: "Recent T5 predominantly central compression deformity as de scribed without hemorrhage within the spinal canal or significant spinal canal narrowing. Extensive atherosclerotic disease." Wedge compression fracture deformity @ T5: - Back brace ordered by Ortho. Pain controlled. - consider outpt PT/Rehab - d/c 10/14/19 Possible 10th rib fracture - comfort care - monitor clinically for resolution - any deterioration, consider repeat imaging - sons are surprised RE: old rib fractures seen on CT. Pt has BMD in the past. Encouraged to f/u with PCP AMS: - resolved CAD: - Continue Prevachol. HTN: - Continue to monitor BP BID - Continue Furosemide 40mg PO qday KIRK, chronic obstruction & hydronephrosis: Cr. 1.57 today which appears typical of Ms. David Consider nephrology consult prn monitor BMP qam Plan/VTE VTE Prophylaxis Ordered?: Yes (Lovenox) VS, I&O, 24H, Fishbone Vital Signs/I&O Vital Signs Date Time Temp Pulse Resp B/P (MAP) Pulse Ox O2 Delivery O2 Flow Rate FiO2 10/14/19 16:08 18 10/14/19 06:00 97.6 63 122/68 (86) 98 Room Air 10/14/19 05:24 1.0 I&O- Last 24 Hours up to 6 AM 10/14/19 06:00 Intake Total 450 ml Output Total 0 ml Balance 450 ml Laboratory Data 24H LABS Laboratory Tests 2 10/13/19 21:13: Bedside Glucose (Misc Panel) 166H 10/14/19 06:51: Nucleated Red Blood Cells % (auto) 0.0, Anion Gap 4L, Glomerular Filtration Rate 34.0L, Calcium Level 9.3 10/14/19 12:01: Bedside Glucose (Misc Panel) 167H 10/14/19 16:42: Bedside Glucose (Misc Panel) 109 CBC/BMP Laboratory Tests 10/14/19 06:51 GISELLE CARRASCO PA-C Oct 14, 2019 17:00
[2019-10-14] MEDS: CLOTRIMAZOLE 1% VAG CR 45 GM PV SCH (21:00)
[2019-10-14] MEDS: ENOXAPARIN 40 MG/0.4 ML SYRINGE (J1650) SC SCH (21:03)
[2019-10-14 21:04] VITALS: BP 129/73
[2019-10-14] MEDS: DOXAZOSIN MESYLATE 1 MG TAB PO SCH (21:04)
[2019-10-14] MEDS: traZODone 100 MG TAB PO SCH (21:05)
[2019-10-14] MEDS: PRAVASTATIN 20 MG TAB PO SCH (21:05)
[2019-10-14] MEDS: LEVEMIR (INSULIN DETEMIR) 1 UNITS/0.01ML SC SCH (21:06)
[2019-10-14] MEDS: LATANOPROST 0.005% OPHTH SOLN 2.5 ML OU SCH (21:06)
[2019-10-14 22:00] VITALS: BP 129/73
[2019-10-15 06:00] VITALS: BP 160/73
[2019-10-15] MEDS: HumaLOG INSULIN (NovoLOG) PER UNIT SC SCH ×2 (07:30→11:51)
[2019-10-15] MEDS ORDERED: TRAM50TA2 PO (08:23)
[2019-10-15] MEDS ORDERED: NYST10006 TOP (08:23)
[2019-10-15] MEDS: SENOKOT S TAB PO SCH (08:58)
[2019-10-15] MEDS: NYSTATIN 100,000 UNITS/GM TOPICAL PWD 15 GM TOP SCH (08:59)
[2019-10-15] MEDS: FUROSEMIDE 40 MG TAB PO SCH (08:59)
[2019-10-15] MEDS: MIRALAX *UNIT DOSE* 17GM PACKET PO SCH (08:59)
[2019-10-15] MEDS: ASPIRIN 81 MG ENTERIC TAB PO SCH (08:59)
[2019-10-15] MEDS: traMADol 50 MG TAB PO PRN (11:51)
== END 2019-10-15 12:10 | disposition home health service (06) | DRG 552 ==
LOC: M ED 09:51 → EDBD 09:51 → M ED INP 14:02 → M MS5PR 16:01
PROVIDERS: ADMIT Student in an Organized Health Care Education/Training Program; ATTEND Internal Medicine Nephrology
DX: S22.050A Wedge compression fracture of T5-T6 vertebra, initial encounter for closed fracture (principal); N17.9 Acute kidney failure, unspecified; S22.31XA Fracture of one rib, right side, initial encounter for closed fracture; N18.4 Chronic kidney disease, stage 4 (severe); E11.22 Type 2 diabetes mellitus with diabetic chronic kidney disease; I12.9 Hypertensive chronic kidney disease with stage 1 through stage 4 chronic kidney disease, or unspecified chronic kidney disease; E66.9 Obesity, unspecified; F39 Unspecified mood [affective] disorder; E78.5 Hyperlipidemia, unspecified; Z95.5 Presence of coronary angioplasty implant and graft; Z98.49 Cataract extraction status, unspecified eye; Z87.891 Personal history of nicotine dependence; W00.1XXA Fall from stairs and steps due to ice and snow, initial encounter; Y92.009 Unspecified place in unspecified non-institutional (private) residence as the place of occurrence of the external cause; Z79.82 Long term (current) use of aspirin; Z79.4 Long term (current) use of insulin; Z79.899 Other long term (current) drug therapy; Z88.2 Allergy status to sulfonamides; Z88.5 Allergy status to narcotic agent; Z91.040 Latex allergy status; Z68.38 Body mass index [BMI] 38.0-38.9, adult

== ENCOUNTER → 2019-11-24 | Outpatient (CLI) | payer MEDICARE ==
[~2019-11-24] MED LIST changes: +ASPI81TA26 PO; +BACITAB PO; +BACL10TA2 PO; +DOXA1TAB42 PO; +EXCETAB33 PO; +FURO40TA2 PO; +INSUDET SC; +LEVA1TAB2 PO; +METH-855 PO; +NYST10006 TOP; +NYST1POW9 TOP; -TRAZ-163; +TRAZ-257
[2019-11-24 12:24] LABS: BASO # 0.1 10^3/uL (0.0-0.2); BASO % 0.8 % (0.0-1.0); EOS # 0.5 10^3/uL (0.0-0.5); EOS % 5.4 % (0.0-3.0); HEMATOCRIT 38.1 % (36.0-47.0); HEMOGLOBIN 11.7 g/dl (12.0-15.5); LYMPH # 1.4 10^3/uL (1.5-5.0); LYMPH % 16.1 % (24.0-44.0); MEAN CORPUSCULAR HEMOGLOBIN 31.6 pg (27.0-33.0); MEAN CORPUSCULAR HGB CONC 30.7 g/dl (32.0-36.5); MONO # 0.5 10^3/uL (0.0-0.8); NEUTROPHILS # 5.9 10^3/uL (1.5-8.5); PLATELET COUNT, AUTOMATED 332 10^3/uL (150-450); WHITE BLOOD COUNT 8.4 10^3/uL (4.0-10.0)
[2019-11-24 12:37] LABS: ALBUMIN 3.4 GM/DL (3.2-5.2); BILIRUBIN,TOTAL 0.3 MG/DL (0.2-1.0); CHOLESTEROL RISK RATIO 4.363 (<5); CREATININE FOR GFR 1.59 MG/DL (0.55-1.30); GLOMERULAR FILTRATION RATE 33.4 (>39); POTASSIUM SERUM 4.6 MEQ/L (3.5-5.1); THYROID STIMULATING HORMONE 1.83 uIU/ML (0.358-3.740); TOTAL PROTEIN 6.9 GM/DL (6.4-8.2)
[2019-11-24 12:43] LABS: HEMOGLOBIN A1c 8.6 %
== END ==
LOC: M LRY 09:20
PROVIDERS: ATTEND Nurse Practitioner Adult Health
DX: E11.65 Type 2 diabetes mellitus with hyperglycemia (principal); E78.5 Hyperlipidemia, unspecified; Z79.899 Other long term (current) drug therapy

== ENCOUNTER → 2019-12-12 | Outpatient (REF) | payer MEDICARE | LOC: M LAB REF 13:56 | PROVIDERS: ATTEND Internal Medicine Nephrology | DX: N39.0 Urinary tract infection, site not specified (principal) ==

== ENCOUNTER → 2019-12-23 | Outpatient (CLI) | payer MEDICARE ==
--- NOTE | 2019-12-23 11:56 | REP ---
RADIONUCLIDE RENAL SCINTIGRAPHY WITH DIFFERENTIAL FLOW AND FUNCTION ANALYSIS: HISTORY: Renovascular hypertension. Obstructive/reflux uropathy. Comparison CT study November 11, 2019. TECHNIQUE: 8.0 mCi technetium 99m Mag 3 is injected. Posterior flow and excretory phase images are acquired. Renal cortical regions of interest are drawn and time activity curves are plotted for renal function analysis. FINDINGS: Posterior flow study shows a symmetric pattern of renal perfusion bilaterally. Excretory phase images show no evidence of intrarenal mass. The intrarenal collecting systems appear bilaterally at 4 minutes. There is some fullness of the intrarenal collecting system on the left compared to the right. This dissipates with postvoid imaging. Differential renal function analysis is essentially normal at 45% with overall renal cortical counts coming from the left kidney and 55% from the right renal cortex. Xcxi-hy-effe activity is delayed bilaterally at approximately, 4-6 minutes. Gril-wk-ecfh max activity is greater than 30 minutes bilaterally with flat bilateral excretion curves. IMPRESSION: Symmetric perfusion. Mild fullness of the intrarenal collecting system on the left. Relatively flat excretion curves bilaterally consistent with bilaterally impaired excretory function. Electronically Signed by Branden Gasca MD 12/23/2019 05:44 P
== END ==
LOC: M RAD 09:52
PROVIDERS: ATTEND Internal Medicine Nephrology
DX: I15.0 Renovascular hypertension (principal); N13.9 Obstructive and reflux uropathy, unspecified
CPT/HCPCS: 78707; A9562

== ENCOUNTER → 2020-05-03 | Outpatient (CLI) | payer MEDICARE ==
[~2020-05-03] MED LIST changes: -AMLO10TA5 PO; +AMLO1TAB25 PO
[2020-05-03 12:50] LABS: ALBUMIN 3.7 GM/DL (3.2-5.2); BILIRUBIN,TOTAL 0.5 MG/DL (0.2-1.0); CALCIUM LEVEL 9.5 MG/DL (8.8-10.2); CHOLESTEROL RISK RATIO 3.295 (<5); CREATININE FOR GFR 1.49 MG/DL (0.55-1.30); POTASSIUM SERUM 4.9 MEQ/L (3.5-5.1); TOTAL PROTEIN 7.7 GM/DL (6.4-8.2)
== END ==
LOC: M LRY 09:28
PROVIDERS: ATTEND Nurse Practitioner Family
DX: E78.00 Pure hypercholesterolemia, unspecified (principal); I10 Essential (primary) hypertension

== ENCOUNTER → 2020-05-06 | Outpatient (REF) | payer MEDICARE | LOC: M LAB REF 16:37 | PROVIDERS: ATTEND Internal Medicine Nephrology | DX: N39.0 Urinary tract infection, site not specified (principal) ==

== ENCOUNTER → 2020-05-11 | Outpatient (CLI) | payer MEDICARE ==
[2020-05-11 14:25] LABS: HEMOGLOBIN A1c 9.4 %
== END ==
LOC: M LRY 09:38
PROVIDERS: ATTEND Nurse Practitioner Adult Health
DX: E11.65 Type 2 diabetes mellitus with hyperglycemia (principal); E78.5 Hyperlipidemia, unspecified; Z79.899 Other long term (current) drug therapy

== ENCOUNTER → 2020-07-30 | Outpatient (CLI) | payer MEDICARE ==
[2020-07-30 10:33] LABS: BASO # 0.1 10^3/uL (0.0-0.2); BASO % 0.9 % (0.0-1.0); EOS # 0.4 10^3/uL (0.0-0.5); EOS % 5.7 % (0.0-3.0); HEMATOCRIT 38.5 % (36.0-47.0); HEMOGLOBIN 11.9 g/dl (12.0-15.5); LYMPH # 1.1 10^3/uL (1.5-5.0); MEAN CORPUSCULAR HEMOGLOBIN 32.1 pg (27.0-33.0); MEAN CORPUSCULAR HGB CONC 30.9 g/dl (32.0-36.5); MEAN CORPUSCULAR VOLUME 103.8 fl (80.0-96.0); MONO # 0.6 10^3/uL (0.0-0.8); MONO % 8.2 % (0.0-5.0); NEUTROPHILS # 5.5 10^3/uL (1.5-8.5); NEUTROPHILS % 70.6 % (36.0-66.0); PLATELET COUNT, AUTOMATED 267 10^3/uL (150-450); RED BLOOD COUNT 3.71 10^6/uL (4.00-5.40); WHITE BLOOD COUNT 7.8 10^3/uL (4.0-10.0)
[2020-07-30 10:46] LABS: ALBUMIN 3.5 GM/DL (3.2-5.2); BILIRUBIN,TOTAL 0.4 MG/DL (0.2-1.0); CALCIUM LEVEL 9.4 MG/DL (8.8-10.2); CHOLESTEROL RISK RATIO 3.636 (<5); CREATININE FOR GFR 1.67 MG/DL (0.55-1.30); GLOMERULAR FILTRATION RATE 31.6 (>39); MAGNESIUM LEVEL 1.9 MG/DL (1.8-2.4); POTASSIUM SERUM 5.1 MEQ/L (3.5-5.1); THYROID STIMULATING HORMONE 1.35 uIU/ML (0.358-3.740); TOTAL PROTEIN 7.1 GM/DL (6.4-8.2)
[2020-07-30 10:51] LABS: HEMOGLOBIN A1c 8.8 %
== END ==
LOC: M PLALAB 08:36
PROVIDERS: ATTEND Nurse Practitioner Adult Health
DX: E11.65 Type 2 diabetes mellitus with hyperglycemia (principal); E78.00 Pure hypercholesterolemia, unspecified; I10 Essential (primary) hypertension; E66.01 Morbid (severe) obesity due to excess calories; Z79.899 Other long term (current) drug therapy

== ENCOUNTER → 2020-10-08 | Outpatient (REF) | payer MEDICARE | LOC: M LAB REF 12:50 | PROVIDERS: ATTEND Internal Medicine Nephrology | DX: N39.0 Urinary tract infection, site not specified (principal) ==

== ENCOUNTER → 2020-11-01 | Outpatient (CLI) | payer MEDICARE ==
[2020-11-01 12:27] LABS: BASO # 0.1 10^3/uL (0.0-0.2); BASO % 0.8 % (0.0-1.0); EOS # 0.3 10^3/uL (0.0-0.5); EOS % 4.1 % (0.0-3.0); HEMATOCRIT 41.3 % (36.0-47.0); HEMOGLOBIN 12.7 g/dl (12.0-15.5); LYMPH # 1.1 10^3/uL (1.5-5.0); LYMPH % 14.3 % (24.0-44.0); MEAN CORPUSCULAR HEMOGLOBIN 31.8 pg (27.0-33.0); MEAN CORPUSCULAR HGB CONC 30.8 g/dl (32.0-36.5); MEAN CORPUSCULAR VOLUME 103.3 fl (80.0-96.0); MONO # 0.5 10^3/uL (0.0-0.8); MONO % 6.8 % (0.0-5.0); NEUTROPHILS # 5.7 10^3/uL (1.5-8.5); NEUTROPHILS % 73.5 % (36.0-66.0); PLATELET COUNT, AUTOMATED 237 10^3/uL (150-450); WHITE BLOOD COUNT 7.8 10^3/uL (4.0-10.0)
[2020-11-01 12:53] LABS: HEMOGLOBIN A1c 8.4 %
[2020-11-01 13:53] LABS: ALBUMIN 3.6 GM/DL (3.2-5.2); BILIRUBIN,TOTAL 0.4 MG/DL (0.2-1.0); CALCIUM LEVEL 9.5 MG/DL (8.8-10.2); CHOLESTEROL RISK RATIO 3.487 (<5); CREATININE FOR GFR 1.59 MG/DL (0.55-1.30); GLOMERULAR FILTRATION RATE 33.4 (>39); POTASSIUM SERUM 4.9 MEQ/L (3.5-5.1); THYROID STIMULATING HORMONE 2.01 uIU/ML (0.358-3.740); TOTAL PROTEIN 8.3 GM/DL (6.4-8.2)
== END ==
LOC: M PLALAB 08:24
PROVIDERS: ATTEND Nurse Practitioner Adult Health
DX: N18.4 Chronic kidney disease, stage 4 (severe) (principal); E11.65 Type 2 diabetes mellitus with hyperglycemia; Z79.899 Other long term (current) drug therapy

== ENCOUNTER → 2020-11-19 | Outpatient (CLI) | payer MEDICARE ==
[~2020-11-19] MED LIST changes: -LISI40TA; -LISI40TA PO; +LISI40TA4; +LISI40TA4 PO
== END ==
LOC: M LABSMTC 11:16
PROVIDERS: ATTEND Internal Medicine Cardiovascular Disease
DX: Z01.812 Encounter for preprocedural laboratory examination (principal); Z20.822 Contact with and (suspected) exposure to COVID-19

== ENCOUNTER → 2020-11-26 | Outpatient (CLI) | payer MEDICARE ==
[~2020-11-26] MED LIST changes: +LISI40TA; +LISI40TA PO; -LISI40TA4; -LISI40TA4 PO
[2020-11-26 13:57] LABS: CREATININE FOR GFR 1.61 MG/DL (0.55-1.30); GLOMERULAR FILTRATION RATE 32.9 (>39)
== END ==
LOC: M PLALAB 10:00
PROVIDERS: ATTEND Internal Medicine Cardiovascular Disease
DX: N18.4 Chronic kidney disease, stage 4 (severe) (principal); E11.65 Type 2 diabetes mellitus with hyperglycemia; Z79.899 Other long term (current) drug therapy

== ENCOUNTER → 2021-02-01 | Outpatient (CLI) | payer MEDICARE ==
[~2021-02-01] MED LIST changes: -ASPI-262 PO; +ASPI325T59 PO; -LISI40TA; -LISI40TA PO; +LISI40TA4; +LISI40TA4 PO
[2021-02-01 11:12] LABS: BASO # 0.1 10^3/uL (0.0-0.2); BASO % 1.1 % (0.0-1.0); EOS # 0.5 10^3/uL (0.0-0.5); EOS % 7.2 % (0.0-3.0); HEMATOCRIT 39.4 % (36.0-47.0); HEMOGLOBIN 12.4 g/dl (12.0-15.5); LYMPH # 1.8 10^3/uL (1.5-5.0); LYMPH % 25.8 % (24.0-44.0); MEAN CORPUSCULAR HEMOGLOBIN 32.5 pg (27.0-33.0); MEAN CORPUSCULAR HGB CONC 31.5 g/dl (32.0-36.5); MEAN CORPUSCULAR VOLUME 103.4 fl (80.0-96.0); MONO # 0.6 10^3/uL (0.0-0.8); MONO % 8.1 % (2.0-8.0); NEUTROPHILS # 4.1 10^3/uL (1.5-8.5); NEUTROPHILS % 57.4 % (36.0-66.0); PLATELET COUNT, AUTOMATED 262 10^3/uL (150-450); RED BLOOD COUNT 3.81 10^6/uL (4.00-5.40); WHITE BLOOD COUNT 7.1 10^3/uL (4.0-10.0)
[2021-02-01 11:23] LABS: ALBUMIN 3.6 GM/DL (3.2-5.2); BILIRUBIN,TOTAL 0.4 MG/DL (0.2-1.0); CALCIUM LEVEL 9.3 MG/DL (8.8-10.2); CHOLESTEROL RISK RATIO 3.523 (<5); CREATININE FOR GFR 1.48 MG/DL (0.55-1.30); GLOMERULAR FILTRATION RATE 36.2 (>39); MAGNESIUM LEVEL 1.9 MG/DL (1.8-2.4); POTASSIUM SERUM 4.8 MEQ/L (3.5-5.1); THYROID STIMULATING HORMONE 1.57 uIU/ML (0.358-3.740); TOTAL PROTEIN 8.4 GM/DL (6.4-8.2)
[2021-02-01 11:34] LABS: HEMOGLOBIN A1c 7.7 %
== END ==
LOC: M PLALAB 08:44
PROVIDERS: ATTEND Nurse Practitioner Family
DX: E11.65 Type 2 diabetes mellitus with hyperglycemia (principal); N18.4 Chronic kidney disease, stage 4 (severe); Z79.899 Other long term (current) drug therapy

== ENCOUNTER → 2021-02-17 | Outpatient (CLI) | payer MEDICARE ==
--- NOTE | 2021-02-17 10:57 | REPPI ---
INDICATION: DYSPNEA COMPARISON: 11/11/2019 TECHNIQUE: PA and lateral. FINDINGS: The mediastinum and cardiac silhouette are stable with cardiomegaly and evidence for prior sternotomy and CABG. Lung ram demonstrate diffuse stable emphysematous changes and fibrosis/scarring. Subtle superimposed airspace disease primarily at the lung bases cannot be excluded. IMPRESSION: Chronic changes. Superimposed acute infiltrates cannot be excluded. <Electronically signed by Tavon Kaur > 02/17/21 [id number]
== END ==
LOC: M PLAIMG 10:30
PROVIDERS: ATTEND Nurse Practitioner Adult Health
DX: R06.00 Dyspnea, unspecified (principal)

== ENCOUNTER → 2021-03-16 | Outpatient (CLI) | payer MEDICARE ==
--- NOTE | 2021-03-17 09:33 | REP ---
INDICATION: ABN FINDINGS OF LUNG FIELD COMPARISON: 10/09/2019 TECHNIQUE: Axial noncontrast images from the thoracic inlet to the upper abdomen with coronal and sagittal reformations. This CT examination was performed using the following dose reduction techniques: Automated exposure control, adjustment of mA and/or kv according to the patient's size, and use of iterative reconstruction technique. FINDINGS: COPD/emphysematous changes with moderate to significant advanced multifocal fibrosis. No obvious acute focal consolidation, effusion, or pneumothorax. Small nodule may be obscured by the surrounding fibrosis although no obvious large mass lesion is identified. Mediastinal and hilar adenopathy is again noted although may be mildly increased from prior examination. Further evaluation of the mediastinum again demonstrates sternotomy along with cardiomegaly and atherosclerotic changes to the thoracic aorta and coronary arteries as well as evidence for prior aortic valve repair. Multiple old healed rib fractures and chronic compression fracture at T5. 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 <Electronically signed by Tavon Kaur > 03/17/21 [id number]
== END ==
LOC: M RAD 10:05
PROVIDERS: ATTEND Physician Assistant
DX: R91.8 Other nonspecific abnormal finding of lung field (principal); J44.9 Chronic obstructive pulmonary disease, unspecified; J84.10 Pulmonary fibrosis, unspecified

== ENCOUNTER → 2021-03-18 | Outpatient (REF) | payer MEDICARE | LOC: M LAB REF 17:13 | PROVIDERS: ATTEND Internal Medicine Nephrology | DX: N39.0 Urinary tract infection, site not specified (principal) ==

== ENCOUNTER → 2021-05-06 | Outpatient (CLI) | payer MEDICARE ==
[~2021-05-06] MED LIST changes: +OXYC-600 PO; -OXYC1TAB PO
[2021-05-06 13:03] LABS: BASO # 0.1 10^3/uL (0.0-0.2); BASO % 0.7 % (0.0-1.0); EOS # 0.6 10^3/uL (0.0-0.5); EOS % 6.8 % (0.0-3.0); HEMATOCRIT 41.5 % (36.0-47.0); HEMOGLOBIN 12.7 g/dl (12.0-15.5); LYMPH # 1.4 10^3/uL (1.5-5.0); LYMPH % 16.4 % (24.0-44.0); MEAN CORPUSCULAR HEMOGLOBIN 31.4 pg (27.0-33.0); MEAN CORPUSCULAR HGB CONC 30.6 g/dl (32.0-36.5); MEAN CORPUSCULAR VOLUME 102.7 fl (80.0-96.0); MONO # 0.7 10^3/uL (0.0-0.8); MONO % 8.1 % (2.0-8.0); NEUTROPHILS # 5.6 10^3/uL (1.5-8.5); NEUTROPHILS % 67.8 % (36.0-66.0); PLATELET COUNT, AUTOMATED 233 10^3/uL (150-450); RED BLOOD COUNT 4.04 10^6/uL (4.00-5.40); WHITE BLOOD COUNT 8.3 10^3/uL (4.0-10.0)
[2021-05-06 13:46] LABS: ALBUMIN 3.5 GM/DL (3.2-5.2); BILIRUBIN,TOTAL 0.3 MG/DL (0.2-1.0); CALCIUM LEVEL 9.2 MG/DL (8.8-10.2); CHOLESTEROL RISK RATIO 3.581 (<5); CREATININE FOR GFR 1.57 MG/DL (0.55-1.30); GLOMERULAR FILTRATION RATE 33.8 (>39); POTASSIUM SERUM 5.4 MEQ/L (3.5-5.1); THYROID STIMULATING HORMONE 1.31 uIU/ML (0.358-3.740); TOTAL PROTEIN 8.5 GM/DL (6.4-8.2)
== END ==
LOC: M PLALAB 09:46
PROVIDERS: ATTEND Nurse Practitioner Family
DX: E11.65 Type 2 diabetes mellitus with hyperglycemia (principal); N18.4 Chronic kidney disease, stage 4 (severe); Z79.899 Other long term (current) drug therapy

== ENCOUNTER → 2021-05-09 | Outpatient (CLI) | payer MEDICARE ==
[~2021-05-09] MED LIST changes: -OXYC-600 PO; +OXYC1TAB PO
[2021-05-09 11:28] LABS: BASO # 0.1 10^3/uL (0.0-0.2); BASO % 0.8 % (0.0-1.0); EOS # 0.5 10^3/uL (0.0-0.5); EOS % 5.9 % (0.0-3.0); HEMOGLOBIN 12.3 g/dl (12.0-15.5); LYMPH # 1.3 10^3/uL (1.5-5.0); LYMPH % 16.8 % (24.0-44.0); MEAN CORPUSCULAR HEMOGLOBIN 31.5 pg (27.0-33.0); MEAN CORPUSCULAR HGB CONC 30.8 g/dl (32.0-36.5); MEAN CORPUSCULAR VOLUME 102.6 fl (80.0-96.0); MONO # 0.6 10^3/uL (0.0-0.8); MONO % 7.8 % (2.0-8.0); NEUTROPHILS # 5.5 10^3/uL (1.5-8.5); NEUTROPHILS % 68.3 % (36.0-66.0); PLATELET COUNT, AUTOMATED 239 10^3/uL (150-450)
[2021-05-09 11:49] LABS: HEMOGLOBIN A1c 8.3 %
[2021-05-09 12:09] LABS: ALBUMIN 3.3 GM/DL (3.2-5.2); BILIRUBIN,TOTAL 0.3 MG/DL (0.2-1.0); CALCIUM LEVEL 8.4 MG/DL (8.8-10.2); CHOLESTEROL RISK RATIO 3.631 (<5); CREATININE FOR GFR 1.93 MG/DL (0.55-1.30); GLOMERULAR FILTRATION RATE 26.7 (>39); MAGNESIUM LEVEL 1.8 MG/DL (1.8-2.4); POTASSIUM SERUM 5.1 MEQ/L (3.5-5.1); THYROID STIMULATING HORMONE 1.67 uIU/ML (0.358-3.740); TOTAL PROTEIN 8.3 GM/DL (6.4-8.2)
== END ==
LOC: M LAB 10:15
PROVIDERS: ATTEND Nurse Practitioner Family
DX: E11.65 Type 2 diabetes mellitus with hyperglycemia (principal); N18.4 Chronic kidney disease, stage 4 (severe)

== ENCOUNTER → 2021-07-08 | Outpatient (REF) | payer MEDICARE | LOC: M LAB REF 13:13 | PROVIDERS: ATTEND Internal Medicine Nephrology | DX: N39.0 Urinary tract infection, site not specified (principal) ==

== ENCOUNTER → 2021-08-09 | Outpatient (CLI) | payer MEDICARE ==
[2021-08-09 11:16] LABS: ALBUMIN 3.1 GM/DL (3.2-5.2); BASO # 0.1 10^3/uL (0.0-0.2); BASO % 0.7 % (0.0-1.0); BILIRUBIN,TOTAL 0.4 MG/DL (0.2-1.0); CALCIUM LEVEL 9.1 MG/DL (8.8-10.2); CHOLESTEROL RISK RATIO 3.071 (<5); CREATININE FOR GFR 1.65 MG/DL (0.55-1.30); EOS # 0.4 10^3/uL (0.0-0.5); EOS % 5.1 % (0.0-3.0); GLOMERULAR FILTRATION RATE 31.9 (>39); HEMATOCRIT 41.8 % (36.0-47.0); HEMOGLOBIN 12.8 g/dl (12.0-15.5); LYMPH # 1.4 10^3/uL (1.5-5.0); LYMPH % 17.3 % (24.0-44.0); MAGNESIUM LEVEL 1.5 MG/DL (1.8-2.4); MEAN CORPUSCULAR HGB CONC 30.6 g/dl (32.0-36.5); MEAN CORPUSCULAR VOLUME 104.5 fl (80.0-96.0); MONO # 0.7 10^3/uL (0.0-0.8); MONO % 8.5 % (2.0-8.0); NEUTROPHILS # 5.5 10^3/uL (1.5-8.5); PLATELET COUNT, AUTOMATED 231 10^3/uL (150-450); POTASSIUM SERUM 4.5 MEQ/L (3.5-5.1); THYROID STIMULATING HORMONE 1.41 uIU/ML (0.358-3.740); TOTAL PROTEIN 8.3 GM/DL (6.4-8.2); WHITE BLOOD COUNT 8.1 10^3/uL (4.0-10.0)
[2021-08-09 11:35] LABS: HEMOGLOBIN A1c 7.3 %
== END ==
LOC: M PLALAB 08:49
PROVIDERS: ATTEND Nurse Practitioner Family
DX: N18.4 Chronic kidney disease, stage 4 (severe) (principal); E11.65 Type 2 diabetes mellitus with hyperglycemia; Z79.899 Other long term (current) drug therapy

== ENCOUNTER → 2021-11-15 | Outpatient (CLI) | payer MEDICARE ==
[~2021-11-15] MED LIST changes: +OXYC-600 PO; -OXYC1TAB PO
[2021-11-15 10:15] LABS: BASO # 0.1 10^3/uL (0.0-0.2); BASO % 0.6 % (0.0-1.0); EOS # 0.5 10^3/uL (0.0-0.5); EOS % 5.4 % (0.0-3.0); HEMATOCRIT 43.9 % (36.0-47.0); HEMOGLOBIN 13.7 g/dl (12.0-15.5); LYMPH # 1.5 10^3/uL (1.5-5.0); LYMPH % 15.6 % (24.0-44.0); MEAN CORPUSCULAR HEMOGLOBIN 31.4 pg (27.0-33.0); MEAN CORPUSCULAR HGB CONC 31.2 g/dl (32.0-36.5); MEAN CORPUSCULAR VOLUME 100.7 fl (80.0-96.0); MONO # 0.8 10^3/uL (0.0-0.8); MONO % 8.2 % (2.0-8.0); NEUTROPHILS # 6.6 10^3/uL (1.5-8.5); NEUTROPHILS % 69.9 % (36.0-66.0); PLATELET COUNT, AUTOMATED 267 10^3/uL (150-450); RED BLOOD COUNT 4.36 10^6/uL (4.00-5.40); WHITE BLOOD COUNT 9.5 10^3/uL (4.0-10.0)
[2021-11-15 13:01] LABS: HEMOGLOBIN A1c 7.4 %
[2021-11-15 13:43] LABS: ALBUMIN 3.3 GM/DL (3.2-5.2); BILIRUBIN,TOTAL 0.3 MG/DL (0.2-1.0); CALCIUM LEVEL 9.2 MG/DL (8.8-10.2); CHOLESTEROL RISK RATIO 3.05 (<5); CREATININE FOR GFR 1.72 MG/DL (0.55-1.30); GLOMERULAR FILTRATION RATE 30.4 (>32); MAGNESIUM LEVEL 1.8 MG/DL (1.8-2.4); POTASSIUM SERUM 5.3 MEQ/L (3.5-5.1); THYROID STIMULATING HORMONE 2.08 uIU/ML (0.358-3.740); TOTAL PROTEIN 8.8 GM/DL (6.4-8.2)
== END ==
LOC: M PLALAB 09:14
PROVIDERS: ATTEND Nurse Practitioner Family
DX: Z13.29 Encounter for screening for other suspected endocrine disorder (principal); I10 Essential (primary) hypertension; E78.00 Pure hypercholesterolemia, unspecified; E83.42 Hypomagnesemia; E11.65 Type 2 diabetes mellitus with hyperglycemia

== ENCOUNTER → 2022-02-14 | Outpatient (CLI) | payer MEDICARE ==
[2022-02-14 10:46] LABS: BASO # 0.1 10^3/uL (0.0-0.2); BASO % 0.7 % (0.0-1.0); EOS # 0.4 10^3/uL (0.0-0.5); EOS % 4.4 % (0.0-3.0); HEMATOCRIT 41.4 % (36.0-47.0); HEMOGLOBIN 12.4 g/dl (12.0-15.5); LYMPH # 1.1 10^3/uL (1.5-5.0); LYMPH % 12.2 % (24.0-44.0); MEAN CORPUSCULAR HEMOGLOBIN 31.9 pg (27.0-33.0); MEAN CORPUSCULAR VOLUME 106.4 fl (80.0-96.0); MONO # 0.7 10^3/uL (0.0-0.8); MONO % 7.5 % (2.0-8.0); NEUTROPHILS # 6.7 10^3/uL (1.5-8.5); NEUTROPHILS % 74.9 % (36.0-66.0); PLATELET COUNT, AUTOMATED 205 10^3/uL (150-450); RED BLOOD COUNT 3.89 10^6/uL (4.00-5.40); WHITE BLOOD COUNT 8.9 10^3/uL (4.0-10.0)
[2022-02-14 11:07] LABS: HEMOGLOBIN A1c 6.5 %
[2022-02-14 11:20] LABS: ALBUMIN 3.1 GM/DL (3.2-5.2); BILIRUBIN,TOTAL 0.5 MG/DL (0.2-1.0); CALCIUM LEVEL 8.9 MG/DL (8.8-10.2); CHOLESTEROL RISK RATIO 2.625 (<5); CREATININE FOR GFR 1.46 MG/DL (0.55-1.30); GLOMERULAR FILTRATION RATE 36.7 (>32); MAGNESIUM LEVEL 1.9 MG/DL (1.8-2.4); POTASSIUM SERUM 4.8 MEQ/L (3.5-5.1); THYROID STIMULATING HORMONE 2.1 uIU/ML (0.358-3.740); TOTAL PROTEIN 8.7 GM/DL (6.4-8.2)
== END ==
LOC: M PLALAB 08:47
PROVIDERS: ATTEND Nurse Practitioner Family
DX: Z00.01 Encounter for general adult medical examination with abnormal findings (principal); E11.65 Type 2 diabetes mellitus with hyperglycemia; I10 Essential (primary) hypertension; E78.00 Pure hypercholesterolemia, unspecified; E83.42 Hypomagnesemia; Z13.29 Encounter for screening for other suspected endocrine disorder

== ENCOUNTER 2022-02-27 11:06 | Emergency (ER) | payer MEDICARE ==
[~2022-02-27] VITALS: Ht 152.4 cm; Wt 85.0 kg
[~2022-02-27 11:06] MED LIST changes: +EXCETAB32 PO; -EXCETAB33 PO
[2022-02-27] MEDS ORDERED: LEVE1INJ5 (12:30)
[2022-02-27] MEDS ORDERED: LOSA100T45 PO (12:30)
[2022-02-27] MEDS ORDERED: PRED10TA2 (12:30)
[2022-02-27] MEDS ORDERED: OMEP10CASR PO (12:31)
[2022-02-27] MEDS ORDERED: TUMS500C PO (12:31)
[2022-02-27 12:53] LABS: BASO % 0.1 % (0.0-1.0); EOS % 0.1 % (0.0-3.0); HEMATOCRIT 45.4 % (36.0-47.0); HEMOGLOBIN 14.3 g/dl (12.0-15.5); LYMPH # 0.8 10^3/uL (1.5-5.0); MEAN CORPUSCULAR HEMOGLOBIN 32.1 pg (27.0-33.0); MEAN CORPUSCULAR HGB CONC 31.5 g/dl (32.0-36.5); MEAN CORPUSCULAR VOLUME 101.8 fl (80.0-96.0); MONO # 0.3 10^3/uL (0.0-0.8); MONO % 1.8 % (2.0-8.0); NEUTROPHILS % 92.1 % (36.0-66.0); PLATELET COUNT, AUTOMATED 237 10^3/uL (150-450); RED BLOOD COUNT 4.46 10^6/uL (4.00-5.40); WHITE BLOOD COUNT 15.2 10^3/uL (4.0-10.0)
[2022-02-27 13:25] LABS: ALBUMIN 3.3 GM/DL (3.2-5.2); BILIRUBIN,DIRECT 0.3 MG/DL (0.0-0.2); BILIRUBIN,TOTAL 0.8 MG/DL (0.2-1.0); CALCIUM LEVEL 9.9 MG/DL (8.8-10.2); CREATININE FOR GFR 1.51 MG/DL (0.55-1.30); GLOMERULAR FILTRATION RATE 35.3 (>32); POTASSIUM SERUM 4.8 MEQ/L (3.5-5.1); TOTAL PROTEIN 8.3 GM/DL (6.4-8.2)
[2022-02-27] MEDS ORDERED: NS 500 ML IV ONE (13:35)
[2022-02-27] MEDS ORDERED: ISOVUE-370 76% 100ML VIAL As Ordered ONE (14:42)
[2022-02-27] MEDS ORDERED: ONDANSETRON 4MG/2ML VIAL IV ONE (15:10)
[2022-02-27] MEDS ORDERED: PANTOPRAZOLE 40MG VIAL IV ONE (16:20)
[2022-02-27] MEDS ORDERED: PANT40TA29 PO (16:29)
[2022-02-27] MEDS ORDERED: ONDA4TAB6 PO (16:29)
[2022-02-27] MEDS ORDERED: FUROSEMIDE 40 MG TAB PO ONE (17:10)
[2022-02-27] MEDS ORDERED: LOSARTAN 50MG TABLET PO ONE (17:10)
[2022-02-27 17:20] VITALS: BP 210/100
[2022-02-27 17:54] VITALS: BP 147/77
== END 2022-02-27 18:25 | disposition home or self-care (01) ==
LOC: M ED 11:06
DX: K80.20 Calculus of gallbladder without cholecystitis without obstruction (principal); E11.9 Type 2 diabetes mellitus without complications; I10 Essential (primary) hypertension; I25.10 Atherosclerotic heart disease of native coronary artery without angina pectoris; J84.10 Pulmonary fibrosis, unspecified; Z99.81 Dependence on supplemental oxygen; Z88.1 Allergy status to other antibiotic agents; Z88.2 Allergy status to sulfonamides; Z88.5 Allergy status to narcotic agent; Z91.040 Latex allergy status
CPT/HCPCS: 36415; 74177; 76705; 80048; 80076; 83690; 84484; 85025; 93005; 96361; 96374; 99284; J2405; Q9967

== ENCOUNTER 2022-03-03 10:50 | Inpatient (IN) | payer MEDICARE ==
[~2022-03-03] VITALS: Ht 152.4 cm; Wt 80.6 kg
[~2022-03-03 10:50] MED LIST changes: +LOSA100T45 PO; +OMEP10CASR PO; +ONDA4TAB6 PO; +PANT40TA29 PO; +PRED10TA2; +TUMS500C PO
[2022-03-03] MEDS ORDERED: LABETALOL 100MG/20ML VIAL IV STA (11:49)
[2022-03-03 12:10] LABS: BASO % 0.2 % (0.0-1.0); EOS % 0.1 % (0.0-3.0); HEMATOCRIT 42.5 % (36.0-47.0); HEMOGLOBIN 13.5 g/dl (12.0-15.5); LYMPH # 0.7 10^3/uL (1.5-5.0); LYMPH % 2.8 % (24.0-44.0); MEAN CORPUSCULAR HEMOGLOBIN 32.5 pg (27.0-33.0); MEAN CORPUSCULAR HGB CONC 31.8 g/dl (32.0-36.5); MEAN CORPUSCULAR VOLUME 102.4 fl (80.0-96.0); MONO # 1.4 10^3/uL (0.0-0.8); MONO % 5.1 % (2.0-8.0); NEUTROPHILS # 23.7 10^3/uL (1.5-8.5); NEUTROPHILS % 90.4 % (36.0-66.0); PLATELET COUNT, AUTOMATED 224 10^3/uL (150-450); RED BLOOD COUNT 4.15 10^6/uL (4.00-5.40); WHITE BLOOD COUNT 26.2 10^3/uL (4.0-10.0)
[2022-03-03 12:36] LABS: ALBUMIN 2.7 GM/DL (3.2-5.2); BILIRUBIN,DIRECT 0.4 MG/DL (0.0-0.2); BILIRUBIN,TOTAL 0.8 MG/DL (0.2-1.0); CALCIUM LEVEL 9.3 MG/DL (8.8-10.2); CREATININE FOR GFR 1.8 MG/DL (0.55-1.30); GLOMERULAR FILTRATION RATE 28.8 (>32); POTASSIUM SERUM 4.3 MEQ/L (3.5-5.1); TOTAL PROTEIN 7.6 GM/DL (6.4-8.2)
[2022-03-03 13:28] LABS: RSV AMPLIFICATION NEGATIVE (NEGATIVE)
[2022-03-03] MEDS ORDERED: PIPERACILLIN/TAZOBACTAM SOD 3.375 GM in D5W MINI-BAG PLUS 50 ML IV SCH (15:10)
[2022-03-03] MEDS ORDERED: MOM 30ML SUSPENSION UDC PO PRN (15:10)
[2022-03-03] MEDS ORDERED: NITR-67 PO (15:21)
[2022-03-03] MEDS ORDERED: OMEP-173 PO (15:21)
[2022-03-03] MEDS ORDERED: PANT40TA29 PO (15:26)
[2022-03-03] MEDS ORDERED: HOME MED LIST COMPLETE! XX SCH (15:30)
[2022-03-03] MEDS ORDERED: GLUCAGON INJ 1MG VIAL SC PRN (15:45)
[2022-03-03] MEDS ORDERED: GLUCOSE 4GM CHEW TABLET PO PRN (15:45)
[2022-03-03] MEDS ORDERED: EXCEDRIN MIGRAINE TABLET PO PRN (15:45)
[2022-03-03] MEDS ORDERED: DEXTROSE 50% 50 ML SYRINGE IV PRN (15:45)
[2022-03-03] MEDS ORDERED: NYSTATIN 100,000 UNITS/GM TOPICAL PWD 15 GM TOP PRN ×2 (15:45→16:07)
[2022-03-03] MEDS: PIPERACILLIN/TAZOBACTAM SOD 2.25 GM in D5W MINI-BAG PLUS 50 ML IV SCH ×2 (16:58→21:14)
[2022-03-03] MEDS: HumaLOG INSULIN (NovoLOG) PER UNIT SC SCH ×2 (17:32→21:14)
[2022-03-03 20:05] VITALS: BP 156/80
[2022-03-03 20:40] VITALS: BP 159/67
[2022-03-03] MEDS: LATANOPROST 0.005% OPHTH SOLN 2.5 ML OU SCH (21:00)
[2022-03-03] MEDS: LEVEMIR (INSULIN DETEMIR) 1 UNITS/0.01ML SC SCH (21:13)
[2022-03-03] MEDS: HEPARIN SOD (PORCINE) 5000UNITS/ML 1ML VIAL/SYRINGE SC SCH (21:14)
[2022-03-03] MEDS: traZODone 100 MG TAB PO SCH (21:15)
[2022-03-03] MEDS: DOXAZOSIN MESYLATE 1 MG TAB PO SCH (21:15)
[2022-03-03] MEDS: ACETAMINOPHEN TAB 650MG DOSE (2X325MG) PO PRN (21:15)
[2022-03-03] MEDS: PRAVASTATIN 20 MG TAB PO SCH (21:15)
[2022-03-03] MEDS ORDERED: NS 1,000 ML IV SCH (21:45)
[2022-03-04] VITALS (7 sets, daily range): BP systolic 121–170; BP diastolic 58–83
[2022-03-04] MEDS: PIPERACILLIN/TAZOBACTAM SOD 2.25 GM in D5W MINI-BAG PLUS 50 ML IV SCH ×4 (03:16→21:01)
[2022-03-04] MEDS: CALCIUM CARBONATE 500 MG CHEW U/D PO PRN (03:21)
[2022-03-04] MEDS: ONDANSETRON 4MG/2ML VIAL IV PRN (03:59)
[2022-03-04 05:13] LABS: HEMATOCRIT 39.9 % (36.0-47.0); HEMOGLOBIN 12.7 g/dl (12.0-15.5); MEAN CORPUSCULAR HEMOGLOBIN 32.3 pg (27.0-33.0); MEAN CORPUSCULAR HGB CONC 31.8 g/dl (32.0-36.5); MEAN CORPUSCULAR VOLUME 101.5 fl (80.0-96.0); PLATELET COUNT, AUTOMATED 205 10^3/uL (150-450); RED BLOOD COUNT 3.93 10^6/uL (4.00-5.40); WHITE BLOOD COUNT 25.1 10^3/uL (4.0-10.0)
[2022-03-04 05:40] LABS: ALBUMIN 2.3 GM/DL (3.2-5.2); CALCIUM LEVEL 8.7 MG/DL (8.8-10.2); CREATININE FOR GFR 1.77 MG/DL (0.55-1.30); GLOMERULAR FILTRATION RATE 29.4 (>32); POTASSIUM SERUM 3.3 MEQ/L (3.5-5.1); TOTAL PROTEIN 6.6 GM/DL (6.4-8.2)
[2022-03-04] MEDS ORDERED: POTASSIUM CHLORIDE 10MEQ SR TABLET PO ONE (06:00)
[2022-03-04] MEDS: HumaLOG INSULIN (NovoLOG) PER UNIT SC SCH ×4 (07:30→20:09)
[2022-03-04] MEDS: ASPIRIN 81MG ENTERIC TABLET PO SCH (08:46)
[2022-03-04] MEDS: PANTOPRAZOLE 40MG TAB (PROTONIX) PO SCH (08:46)
[2022-03-04] MEDS: HEPARIN SOD (PORCINE) 5000UNITS/ML 1ML VIAL/SYRINGE SC SCH ×2 (08:48→20:08)
[2022-03-04] MEDS: LATANOPROST 0.005% OPHTH SOLN 2.5 ML OU SCH (20:07)
[2022-03-04] MEDS: LEVEMIR (INSULIN DETEMIR) 1 UNITS/0.01ML SC SCH (20:07)
[2022-03-04] MEDS: PRAVASTATIN 20 MG TAB PO SCH (20:08)
[2022-03-04] MEDS: ACETAMINOPHEN TAB 650MG DOSE (2X325MG) PO PRN (20:08)
[2022-03-04] MEDS: traZODone 100 MG TAB PO SCH (20:08)
[2022-03-04] MEDS: DOXAZOSIN MESYLATE 1 MG TAB PO SCH (20:08)
[2022-03-05] VITALS (7 sets, daily range): BP systolic 111–169; BP diastolic 58–69
[2022-03-05] MEDS: ACETAMINOPHEN TAB 650MG DOSE (2X325MG) PO PRN ×2 (01:50→19:06)
[2022-03-05] MEDS: PIPERACILLIN/TAZOBACTAM SOD 2.25 GM in D5W MINI-BAG PLUS 50 ML IV SCH ×4 (03:29→21:01)
[2022-03-05 05:35] LABS: HEMATOCRIT 39.4 % (36.0-47.0); HEMOGLOBIN 12.6 g/dl (12.0-15.5); MEAN CORPUSCULAR HEMOGLOBIN 32.6 pg (27.0-33.0); MEAN CORPUSCULAR VOLUME 101.8 fl (80.0-96.0); PLATELET COUNT, AUTOMATED 199 10^3/uL (150-450); RED BLOOD COUNT 3.87 10^6/uL (4.00-5.40); WHITE BLOOD COUNT 22.8 10^3/uL (4.0-10.0)
[2022-03-05 06:05] LABS: BILIRUBIN,TOTAL 0.8 MG/DL (0.2-1.0); CALCIUM LEVEL 8.5 MG/DL (8.8-10.2); CREATININE FOR GFR 1.65 MG/DL (0.55-1.30); GLOMERULAR FILTRATION RATE 31.9 (>32); POTASSIUM SERUM 3.8 MEQ/L (3.5-5.1); TOTAL PROTEIN 6.2 GM/DL (6.4-8.2)
[2022-03-05] MEDS: HumaLOG INSULIN (NovoLOG) PER UNIT SC SCH ×4 (07:19→20:13)
[2022-03-05] MEDS: PANTOPRAZOLE 40MG TAB (PROTONIX) PO SCH (08:44)
[2022-03-05] MEDS: ASPIRIN 81MG ENTERIC TABLET PO SCH (08:44)
[2022-03-05] MEDS: HEPARIN SOD (PORCINE) 5000UNITS/ML 1ML VIAL/SYRINGE SC SCH ×2 (08:45→20:31)
[2022-03-05] MEDS: NS 1,000 ML IV SCH (16:08)
[2022-03-05] MEDS: ONDANSETRON 4MG/2ML VIAL IV PRN (19:06)
[2022-03-05] MEDS: PRAVASTATIN 20 MG TAB PO SCH (20:31)
[2022-03-05] MEDS: LEVEMIR (INSULIN DETEMIR) 1 UNITS/0.01ML SC SCH (20:31)
[2022-03-05] MEDS: DOXAZOSIN MESYLATE 1 MG TAB PO SCH (20:32)
[2022-03-05] MEDS: traZODone 100 MG TAB PO SCH (20:32)
[2022-03-05] MEDS: LATANOPROST 0.005% OPHTH SOLN 2.5 ML OU SCH (20:32)
[2022-03-06] VITALS: BP 139/60
[2022-03-06] MEDS ORDERED: NORCO, ANEXSIA 5/325MG TABLET (HYDROcodone/ACETAMINOPHEN) PO ONE
[2022-03-06] MEDS ORDERED: PROCHLORPERAZINE 10MG/2ML VIAL (J0780 PER 1) IV ONE
[2022-03-06] MEDS ORDERED: MORPHINE 2 MG/ML 1ML VIAL IV ONE
[2022-03-06] MEDS ORDERED: traMADol 50 MG TAB PO PRN
[2022-03-06] MEDS: NS 1,000 ML IV SCH ×3 (01:01→14:33)
[2022-03-06] MEDS: PIPERACILLIN/TAZOBACTAM SOD 2.25 GM in D5W MINI-BAG PLUS 50 ML IV SCH ×4 (03:14→22:54)
[2022-03-06 04:58] LABS: HEMATOCRIT 39.2 % (36.0-47.0); HEMOGLOBIN 12.3 g/dl (12.0-15.5); MEAN CORPUSCULAR HEMOGLOBIN 32.3 pg (27.0-33.0); MEAN CORPUSCULAR HGB CONC 31.4 g/dl (32.0-36.5); MEAN CORPUSCULAR VOLUME 102.9 fl (80.0-96.0); PLATELET COUNT, AUTOMATED 211 10^3/uL (150-450); RED BLOOD COUNT 3.81 10^6/uL (4.00-5.40); WHITE BLOOD COUNT 25.8 10^3/uL (4.0-10.0)
[2022-03-06 05:25] LABS: ALBUMIN 1.7 GM/DL (3.2-5.2); BILIRUBIN,TOTAL 0.8 MG/DL (0.2-1.0); CALCIUM LEVEL 8.5 MG/DL (8.8-10.2); CREATININE FOR GFR 1.79 MG/DL (0.55-1.30); POTASSIUM SERUM 3.4 MEQ/L (3.5-5.1); TOTAL PROTEIN 6.6 GM/DL (6.4-8.2)
[2022-03-06] MEDS: POTASSIUM CHLORIDE 10MEQ SR TABLET PO SCH ×2 (05:39→08:26)
[2022-03-06 07:29] VITALS: BP 135/65
[2022-03-06] MEDS: HumaLOG INSULIN (NovoLOG) PER UNIT SC SCH ×4 (07:30→21:00)
[2022-03-06] MEDS: HEPARIN SOD (PORCINE) 5000UNITS/ML 1ML VIAL/SYRINGE SC SCH ×2 (08:25→21:17)
[2022-03-06] MEDS: ONDANSETRON 4MG/2ML VIAL IV PRN (08:25)
[2022-03-06] MEDS: PANTOPRAZOLE 40MG TAB (PROTONIX) PO SCH (08:26)
[2022-03-06] MEDS: ASPIRIN 81MG ENTERIC TABLET PO SCH (08:26)
[2022-03-06] MEDS: NORCO, ANEXSIA 5/325MG TABLET (HYDROcodone/ACETAMINOPHEN) PO PRN (08:29)
[2022-03-06] MEDS ORDERED: FLUCONAZOLE 50MG TABLET PO SCH (09:00)
[2022-03-06 12:00] VITALS: BP 152/67
[2022-03-06 16:10] VITALS: BP 155/95
[2022-03-06] MEDS ORDERED: SCOPOLAMINE 1MG TRANSDERMAL PATCH TOP SCH (18:00)
[2022-03-06 20:26] VITALS: BP 156/92
[2022-03-06] MEDS: LATANOPROST 0.005% OPHTH SOLN 2.5 ML OU SCH (21:00)
[2022-03-06] MEDS: LEVEMIR (INSULIN DETEMIR) 1 UNITS/0.01ML SC SCH (21:00)
[2022-03-06] MEDS: traZODone 100 MG TAB PO SCH (21:17)
[2022-03-06] MEDS: PRAVASTATIN 20 MG TAB PO SCH (21:17)
[2022-03-06] MEDS: DOXAZOSIN MESYLATE 1 MG TAB PO SCH (21:18)
[2022-03-07] VITALS (76 sets, daily range): BP systolic 51–166; BP diastolic 31–88
[2022-03-07] MEDS: NORCO, ANEXSIA 5/325MG TABLET (HYDROcodone/ACETAMINOPHEN) PO PRN ×2 (01:06→08:50)
[2022-03-07] MEDS: PIPERACILLIN/TAZOBACTAM SOD 2.25 GM in D5W MINI-BAG PLUS 50 ML IV SCH ×4 (04:44→23:30)
[2022-03-07 06:12] LABS: HEMATOCRIT 38.5 % (36.0-47.0); HEMOGLOBIN 11.8 g/dl (12.0-15.5); MEAN CORPUSCULAR HEMOGLOBIN 31.8 pg (27.0-33.0); MEAN CORPUSCULAR HGB CONC 30.6 g/dl (32.0-36.5); MEAN CORPUSCULAR VOLUME 103.8 fl (80.0-96.0); PLATELET COUNT, AUTOMATED 218 10^3/uL (150-450); RED BLOOD COUNT 3.71 10^6/uL (4.00-5.40); WHITE BLOOD COUNT 25.8 10^3/uL (4.0-10.0)
[2022-03-07 06:28] LABS: ALBUMIN 1.6 GM/DL (3.2-5.2); BILIRUBIN,TOTAL 0.9 MG/DL (0.2-1.0); CALCIUM LEVEL 8.6 MG/DL (8.8-10.2); CREATININE FOR GFR 1.66 MG/DL (0.55-1.30); GLOMERULAR FILTRATION RATE 31.6 (>32); POTASSIUM SERUM 4.8 MEQ/L (3.5-5.1); TOTAL PROTEIN 6.1 GM/DL (6.4-8.2)
[2022-03-07] MEDS: HumaLOG INSULIN (NovoLOG) PER UNIT SC SCH ×4 (08:48→21:00)
[2022-03-07] MEDS: PANTOPRAZOLE 40MG TAB (PROTONIX) PO SCH (08:49)
[2022-03-07] MEDS: HEPARIN SOD (PORCINE) 5000UNITS/ML 1ML VIAL/SYRINGE SC SCH ×2 (08:49→21:00)
[2022-03-07] MEDS: ASPIRIN 81MG ENTERIC TABLET PO SCH (08:49)
[2022-03-07] MEDS ORDERED: FLUCONAZOLE 100 MG TAB PO SCH (09:00)
[2022-03-07] MEDS: CALCIUM CARBONATE 500 MG CHEW U/D PO PRN (15:46)
[2022-03-07] MEDS ORDERED: NS 500 ML IV ONE ×3 (16:55→23:05)
[2022-03-07] MEDS ORDERED: NS 1,000 ML IV ONE ×2 (17:20→17:45)
[2022-03-07] MEDS ORDERED: NOREPINEPHRINE 4 MG/4 ML AMP As Ordered ONE ×2 (17:23→17:24)
[2022-03-07] MEDS ORDERED: NOREPINEPHRINE BITARTRATE 8 MG in D5W 492 ML IV SCH ×2 (17:30→21:30)
[2022-03-07 17:51] LABS: ABG BASE EXCESS -16.9 (-2.0-2.0); ABG HCO3 11.8 MEQ/L (22.0-26.0); ABG O2 SATURATION 99.3 % (95.0-99.0); ABG PARTIAL PRESSURE CO2 38.6 mmHg (35.0-45.0); ABG PARTIAL PRESSURE O2 265.8 mmHg (75.0-100.0); ABG STANDARD HCO3 11.7 MEQ/L (22.0-26.0)
[2022-03-07 17:52] LABS: ABG pH (ARTERIAL) 7.103 UNITS (7.350-7.450)
[2022-03-07] MEDS ORDERED: SODIUM BICARBONATE 8.4% INJ 50 ML SYRINGE IV STA (17:56)
[2022-03-07 18:04] LABS: HEMATOCRIT 37.1 % (36.0-47.0); HEMOGLOBIN 11.1 g/dl (12.0-15.5); MEAN CORPUSCULAR HEMOGLOBIN 32.7 pg (27.0-33.0); MEAN CORPUSCULAR HGB CONC 29.9 g/dl (32.0-36.5); MEAN CORPUSCULAR VOLUME 109.4 fl (80.0-96.0); PLATELET COUNT, AUTOMATED 191 10^3/uL (150-450); RED BLOOD COUNT 3.39 10^6/uL (4.00-5.40); WHITE BLOOD COUNT 27.2 10^3/uL (4.0-10.0)
[2022-03-07 18:29] LABS: CK-MB VALUE MASS 5.1 NG/ML (<3.6); LYMPHOCYTES 1 % (16-44); MB/CK RELATIVE INDEX 4.4 (< OR =4); MONOCYTES 4 % (0-5); NEUTROPHILS 94 % (28-66)
[2022-03-07 18:30] LABS: PLATELET ESTIMATE NORMAL (NORMAL)
[2022-03-07 18:46] LABS: ALBUMIN 1.3 GM/DL (3.2-5.2); BILIRUBIN,TOTAL 1.2 MG/DL (0.2-1.0); CALCIUM LEVEL 8.1 MG/DL (8.8-10.2); CREATININE FOR GFR 2.56 MG/DL (0.55-1.30); GLOMERULAR FILTRATION RATE 19.2 (>32); MAGNESIUM LEVEL 2.3 MG/DL (1.8-2.4); POTASSIUM SERUM 5.9 MEQ/L (3.5-5.1); TOTAL PROTEIN 4.8 GM/DL (6.4-8.2)
[2022-03-07] MEDS ORDERED: CALCIUM GLUCONATE 1,000 MG in D5W MINI-BAG PLUS 100 ML IV ONE (19:00)
[2022-03-07] MEDS: NS 1,000 ML IV SCH ×6 (19:19→23:29)
[2022-03-07] MEDS ORDERED: fentaNYL 250 MCG/5 ML INJECTION As Ordered ONE (19:41)
[2022-03-07] MEDS ORDERED: ROCURONIUM BROMIDE 50 MG/5 ML VIAL As Ordered ONE (19:41)
[2022-03-07] MEDS ORDERED: propofoL 200 MG/20 ML VIAL As Ordered ONE (19:43)
[2022-03-07] MEDS ORDERED: ETOMIDATE INJ 20MG/10ML VIAL As Ordered ONE (20:01)
[2022-03-07] MEDS: PRAVASTATIN 20 MG TAB PO SCH (21:00)
[2022-03-07] MEDS: traZODone 100 MG TAB PO SCH (21:00)
[2022-03-07] MEDS: DOXAZOSIN MESYLATE 1 MG TAB PO SCH (21:00)
[2022-03-07] MEDS: LATANOPROST 0.005% OPHTH SOLN 2.5 ML OU SCH (21:00)
[2022-03-07] MEDS ORDERED: SODIUM BICARBONATE 8.4% INJ 50 ML SYRINGE As Ordered ONE (21:21)
[2022-03-07] MEDS ORDERED: VASOPRESSIN INJ 20 UNITS/ML VIAL As Ordered ONE (21:27)
[2022-03-07] MEDS: LEVEMIR (INSULIN DETEMIR) 1 UNITS/0.01ML SC SCH (22:00)
[2022-03-07] MEDS ORDERED: MIDAZOLAM INJ 2MG/2ML VIAL (J2250 PER 1MG) IV PRN (22:10)
[2022-03-07] MEDS ORDERED: MORPHINE 2 MG/ML 1ML VIAL IV PRN (22:10)
[2022-03-07 22:44] LABS: ABG BASE EXCESS -15.7 (-2.0-2.0); ABG HCO3 14.8 MEQ/L (22.0-26.0); ABG O2 SATURATION 98.4 % (95.0-99.0); ABG PARTIAL PRESSURE CO2 55.5 mmHg (35.0-45.0); ABG PARTIAL PRESSURE O2 168.8 mmHg (75.0-100.0); ABG STANDARD HCO3 12.5 MEQ/L (22.0-26.0); ABG TOTAL CO2 16.5 MEQ/L (23.0-31.0)
[2022-03-07 22:46] LABS: ABG pH (ARTERIAL) 7.043 UNITS (7.350-7.450)
[2022-03-07] MEDS: NOREPINEPHRINE BITARTRATE 8 MG in D5W 492 ML IV SCH (23:49)
[2022-03-08] VITALS (20 sets, daily range): BP systolic 84–139; BP diastolic 43–66
[2022-03-08] MEDS: NS 1,000 ML IV SCH ×3 (00:05→09:03)
[2022-03-08] MEDS: VASOPRESSIN INJ 20 UNITS in NS 499 ML IV SCH ×2 (00:27→09:02)
[2022-03-08 01:02] LABS: ALBUMIN 1.3 GM/DL (3.2-5.2); BILIRUBIN,TOTAL 1.5 MG/DL (0.2-1.0); CALCIUM LEVEL 7.5 MG/DL (8.8-10.2); CREATININE FOR GFR 2.49 MG/DL (0.55-1.30); GLOMERULAR FILTRATION RATE 19.8 (>32); PHOSPHORUS LEVEL 7.4 MG/DL (2.5-4.9); POTASSIUM SERUM 5.8 MEQ/L (3.5-5.1); TOTAL PROTEIN 4.9 GM/DL (6.4-8.2)
[2022-03-08] MEDS: PIPERACILLIN/TAZOBACTAM SOD 2.25 GM in D5W MINI-BAG PLUS 50 ML IV SCH ×2 (04:00→09:55)
[2022-03-08 04:03] LABS: HEMATOCRIT 33.9 % (36.0-47.0); HEMOGLOBIN 10.1 g/dl (12.0-15.5); MEAN CORPUSCULAR HEMOGLOBIN 32.5 pg (27.0-33.0); MEAN CORPUSCULAR HGB CONC 29.8 g/dl (32.0-36.5); PLATELET COUNT, AUTOMATED 194 10^3/uL (150-450); RED BLOOD COUNT 3.11 10^6/uL (4.00-5.40); WHITE BLOOD COUNT 29.8 10^3/uL (4.0-10.0)
[2022-03-08 05:02] LABS: ABG BASE EXCESS -16.8 (-2.0-2.0); ABG HCO3 12.5 MEQ/L (22.0-26.0); ABG O2 SATURATION 98.9 % (95.0-99.0); ABG PARTIAL PRESSURE CO2 43.1 mmHg (35.0-45.0); ABG PARTIAL PRESSURE O2 172.2 mmHg (75.0-100.0); ABG STANDARD HCO3 11.7 MEQ/L (22.0-26.0); ABG TOTAL CO2 13.8 MEQ/L (23.0-31.0)
[2022-03-08 05:04] LABS: ABG pH (ARTERIAL) 7.079 UNITS (7.350-7.450)
[2022-03-08 05:17] LABS: ALBUMIN 1.2 GM/DL (3.2-5.2); BILIRUBIN,TOTAL 1.4 MG/DL (0.2-1.0); CALCIUM LEVEL 6.7 MG/DL (8.8-10.2); CREATININE FOR GFR 2.6 MG/DL (0.55-1.30); GLOMERULAR FILTRATION RATE 18.9 (>32); PHOSPHORUS LEVEL 7.6 MG/DL (2.5-4.9); POTASSIUM SERUM 5.8 MEQ/L (3.5-5.1); TOTAL PROTEIN 4.5 GM/DL (6.4-8.2)
[2022-03-08] MEDS ORDERED: SODIUM BICARBONATE 8.4% INJ 50 ML SYRINGE IV STA ×4 (05:30→09:44)
[2022-03-08] MEDS ORDERED: SODIUM BICARBONATE 150 MEQ in D5W 1,000 ML IV SCH (06:00)
[2022-03-08] MEDS: NOREPINEPHRINE BITARTRATE 8 MG in D5W 492 ML IV SCH (06:34)
[2022-03-08 07:57] LABS: ABG BASE EXCESS -17.9 (-2.0-2.0); ABG O2 SATURATION 98.5 % (95.0-99.0); ABG PARTIAL PRESSURE CO2 31.2 mmHg (35.0-45.0); ABG PARTIAL PRESSURE O2 150.5 mmHg (75.0-100.0); ABG STANDARD HCO3 10.6 MEQ/L (22.0-26.0); ABG TOTAL CO2 10.9 MEQ/L (23.0-31.0)
[2022-03-08 08:00] LABS: ABG pH (ARTERIAL) 7.122 UNITS (7.350-7.450)
[2022-03-08] MEDS: HumaLOG INSULIN (NovoLOG) PER UNIT SC SCH (08:08)
[2022-03-08] MEDS ORDERED: CHLORHEXIDINE GLUCONATE 0.12 % 15ML UDC (PERIDEX ORAL RINSE) MT SCH (09:00)
[2022-03-08] MEDS: PANTOPRAZOLE 40MG TAB (PROTONIX) PO SCH (09:07)
[2022-03-08] MEDS: ASPIRIN 81MG ENTERIC TABLET PO SCH (09:08)
[2022-03-08] MEDS: HEPARIN SOD (PORCINE) 5000UNITS/ML 1ML VIAL/SYRINGE SC SCH (09:09)
[2022-03-08] MEDS ORDERED: NS 500 ML IV ONE (09:15)
[2022-03-08] MEDS ORDERED: MICAFUNGIN SODIUM 100 MG in D5W MINI-BAG PLUS 100 ML IV SCH (11:00)
[2022-03-08] MEDS ORDERED: ACETAMINOPHEN 650 MG SUPP PR PRN (12:40)
[2022-03-08] MEDS ORDERED: MORPHINE 2 MG/ML 1ML VIAL IV PRN (12:40)
[2022-03-08] MEDS ORDERED: LORazepam 2 MG/ML VIAL IV PRN (12:40)
[2022-03-08] MEDS ORDERED: ONDANSETRON 4MG/2ML VIAL IV PRN (12:40)
[2022-03-08] MEDS ORDERED: SCOPOLAMINE 1MG TRANSDERMAL PATCH TOP PRN (12:40)
[2022-03-08] MEDS ORDERED: MEROPENEM INJ 1 GM in IV 1 EA IV SCH (14:00)
== END 2022-03-08 13:25 | disposition expired | DRG 408 ==
LOC: M ED 10:50 → M ED INP 15:06 → ENRESERV 19:24 → M PCU 20:06 → M MS5PR 03-06 16:00 → M ICU 03-07 17:15
PROVIDERS: ADMIT Internal Medicine; ATTEND Internal Medicine
PROC: 06HN33Z Insertion of Infusion Device into Left Femoral Vein, Percutaneous Approach (ICD-10-PCS; 2022-03-07)
PROC: 5A1935Z Respiratory Ventilation, Less than 24 Consecutive Hours (ICD-10-PCS; 2022-03-07)
PROC: 0F9440Z Drainage of Gallbladder with Drainage Device, Percutaneous Endoscopic Approach (ICD-10-PCS; principal; 2022-03-07 19:52)
DX: K80.00 Calculus of gallbladder with acute cholecystitis without obstruction (principal); N17.0 Acute kidney failure with tubular necrosis; A41.9 Sepsis, unspecified organism; R65.21 Severe sepsis with septic shock; K72.00 Acute and subacute hepatic failure without coma; G93.41 Metabolic encephalopathy; J96.21 Acute and chronic respiratory failure with hypoxia; I50.33 Acute on chronic diastolic (congestive) heart failure; N39.0 Urinary tract infection, site not specified; I13.0 Hypertensive heart and chronic kidney disease with heart failure and stage 1 through stage 4 chronic kidney disease, or unspecified chronic kidney disease; E87.2 Acidosis; N12 Tubulo-interstitial nephritis, not specified as acute or chronic; Z66 Do not resuscitate; Z20.822 Contact with and (suspected) exposure to COVID-19; E11.22 Type 2 diabetes mellitus with diabetic chronic kidney disease; E78.5 Hyperlipidemia, unspecified; I25.10 Atherosclerotic heart disease of native coronary artery without angina pectoris; J84.10 Pulmonary fibrosis, unspecified; Z99.81 Dependence on supplemental oxygen; Z88.2 Allergy status to sulfonamides; Z90.79 Acquired absence of other genital organ(s); Z98.49 Cataract extraction status, unspecified eye; Z87.891 Personal history of nicotine dependence; N18.9 Chronic kidney disease, unspecified; K21.9 Gastro-esophageal reflux disease without esophagitis; G47.00 Insomnia, unspecified; Z79.82 Long term (current) use of aspirin; Z79.4 Long term (current) use of insulin; Z79.899 Other long term (current) drug therapy; Z88.5 Allergy status to narcotic agent; Z91.040 Latex allergy status; R94.5 Abnormal results of liver function studies; J47.9 Bronchiectasis, uncomplicated; D64.9 Anemia, unspecified; E87.5 Hyperkalemia; E83.51 Hypocalcemia; I16.0 Hypertensive urgency